=== PATIENT | male | born 1970 | race Caucasian/White ===

== ENCOUNTER 2024-10-11 07:51 | Emergency (ER) | payer SELFPAY ==
[2024-10-11 07:57] VITALS: BP 127/84; PULSE 105; TEMP 36.4; O2SAT 100; BMI 26.8
--- NOTE | 2024-10-11 08:03 | ECG_ITS ---
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
--- NOTE | 2024-10-11 08:12 | ED.ABDPAIN1 ---
HPI - Abdominal Pain General Chief Complaint: Abdominal Pain Stated Complaint: WEAKNESS Time Seen by Provider: 10/11/24 07:55 Source: patient Mode of arrival: walk-in Limitations: no limitations History of Present Illness HPI narrative: The patient is coming to the ER with 1 week and a half history of epigastric discomfort, he mentioned that this started almost when he vomited only 1 time and he felt having some pain in the epigastric area after that, the patient since then has been having feeling of easily being full after eating, no difficulty swallowing but he mentioned that sometime he feels short of breath when laying flat No other concerns Related Data Home Medications ?Medication ?Instructions ?Recorded ?Confirmed No Known Home Medications 10/11/24 10/11/24 Allergies Allergy/AdvReac Type Severity Reaction Status Date / Time No Known Drug Allergies Allergy Verified 10/11/24 07:57 Review of Systems ROS Status of ROS 10 or more systems reviewed and unremarkable except as noted in history and below [facility] Medical History (Updated 10/11/24 @ 09:10 by Laina Greer MD) No active medical problems Social History Feeling down, depressed, or hopeless: not at all Exam Narrative Exam Narrative: Nurses notes and vital signs reviewed and patient is not hypoxic. General: Well-appearing and in no apparent distress. Skin: Warm, dry, no pallor noted. No rash. Head: Normocephalic, atraumatic. Neck: Supple, non-tender. Eye: Pupils are equal, round and EOMI. No scleral icterus. Ears, Nose, Mouth, and Throat: TM are clear, no nasal mucosal hypertrophy. Oral mucosa is moist, no posterior oropharynx erythema, uvula is mid-line Cardiovascular: Regular Rate and Rhythm without murmur, gallop or rub. Respiratory: No accessory muscle use or respiratory distress. Lungs are clear to auscultation, no wheezing, rales or rhonchi Chest Wall: no tenderness Back: No midline thoracic or lumbar vertebral tenderness. No CVA tenderness Musculoskeletal: normal ROM, no calf or popliteal tenderness, no lower extremity edema/swelling GI: Abdomen is soft, epigastric discomfort subjective and no organomegaly detected on exam Constitutional Vital Signs, click to edit/add: Last Vital Signs Temp 97.6 F 10/11/24 07:57 Pulse 78 10/11/24 09:16 Resp 18 10/11/24 09:16 BP 125/68 10/11/24 09:16 Pulse Ox 99 10/11/24 09:16 O2 Del Method Room Air 10/11/24 09:16 Course Vital Signs Vital signs: Vital Signs Temperature 97.6 F 10/11/24 07:57 Pulse Rate 105 H 10/11/24 07:57 Respiratory Rate 20 10/11/24 07:57 Blood Pressure 127/84 10/11/24 07:57 Pulse Oximetry 100 10/11/24 07:57 Oxygen Delivery Method Room Air 10/11/24 07:57 Temperature 97.6 F 10/11/24 07:57 Pulse Rate 78 10/11/24 09:16 Respiratory Rate 18 10/11/24 09:16 Blood Pressure 125/68 10/11/24 09:16 Pulse Oximetry 99 10/11/24 09:16 Oxygen Delivery Method Room Air 10/11/24 09:16 MDM - Abdominal Pain MDM Narrative Medical decision making narrative: The patient CBC and chemistry showed no acute significant pathology X-ray of the chest showed no acute pathology as well The patient EKG showing sinus rhythm with a heart rate of [address] elevation or depression The patient CAT scan of the abdomen pelvis showed some splenomegaly which is mild and kidney stone that not correlating the current presentation and the nonobstructing I did explain to the patient the incidental finding of the kidney stone and the fact that need to stay hydrated but also explained to him that this cardiomegaly could be secondary to viral illness Right now hydration and small until resolution is advised The patient is to follow up with primary care physician in next 2-3 days or to return to the emergency department should any of the signs or symptoms worsen or new symptoms develop. The patient agrees with the following Diagnosis and Treatment plan and the patient will be discharged home. The patient to follow-up with his primary care doctor for further evaluation of splenomegaly in case it is continuous Lab Data Labs: Lab Results 10/11/24 Range/Units 08:15 WBC 4.6 (4.0-11.0) 10^3/uL RBC 5.40 (4.70-6.10) 10^6/uL Hgb 16.7 (14.0-18.0) g/dL Hct 47.3 (42.0-54.0) % MCV 87.6 (80.0-94.0) fL MCH 30.9 (25.9-34.0) pg MCHC 35.3 H (29.9-35.2) g/dL RDW 11.9 (11.0-15.0) % Plt Count 165 (150-450) 10^3/uL MPV 10.7 (9.5-13.5) fL Neut % (Auto) 67.7 (43.0-75.0) % Lymph % (Auto) 21.6 (20.5-60.0) % [place] % (Auto) 9.5 (1.7-12.0) % Eos % (Auto) 0.4 L (0.9-7.0) % Baso % (Auto) 0.6 (0.2-2.0) % Neut # (Auto) 3.1 (1.4-6.5) 10^3/uL Lymph # (Auto) 1.0 L (1.2-3.8) 10^3/uL [place] # (Auto) 0.4 (0.3-0.8) 10^3/uL Eos # (Auto) 0.0 (0.0-0.7) 10^3/uL Baso # (Auto) 0.0 (0.0-0.1) 10^3/uL Abs Immat Gran (auto) 0.01 (0.00-0.03) 10^3/uL Imm/Tot Granulo (auto) 0.2 (0.0-0.5) % PT 11.4 (9.0-11.6) sec INR 1.08 Sodium 140 (136-145) mmol/L Potassium 4.7 (3.5-5.1) mmol/L Chloride 104 (98-107) mmol/L Carbon Dioxide 29.3 (21.0-32.0) mmol/L Anion Gap 11.4 BUN 12.0 (7.0-18.0) mg/dL Creatinine 0.95 (0.70-1.30) mg/dL Est GFR ( Amer) >60 (>=60 mL/min/1.73m^2) Est GFR (Non-Af Amer) >60 (>=60 mL/min/1.73m^2) BUN/Creatinine Ratio 12.6 Glucose 106 (74-106) mg/dL Calcium 9.1 (8.5-10.1) mg/dL Total Bilirubin 1.1 H (0.2-1.0) mg/dL AST 32 (15-37) U/L ALT 34 (16-63) U/L Alkaline Phosphatase 130 H (46-116) U/L Troponin I High Sens 4.8 (4.0-76.1) pg/mL Total Protein 6.6 (6.4-8.2) g/dL Albumin 4.0 (3.4-5.0) g/dL Globulin 2.6 g/dL Albumin/Globulin Ratio 1.5 Lipase 29.0 (16.0-77.0) U/L Discharge Plan Discharge Chief Complaint: Abdominal Pain Clinical Impression: Abdominal pain, Splenomegaly Patient Disposition: Home, Self-Care Time of Disposition Decision: 09:09 Condition: Good Prescriptions / Home Meds: No Action No Known Home Medications Print Language: Luxembourger Instructions: Abdominal Pain (ED) Additional Instructions: Call the office of your primary care doctor to arrange for follow-up within the above-stated timeframe. Your ED visit was focused on your acute issue and does not replace primary care. You should review your labs, imaging, and diagnoses from this ED visit with your primary care physician. There may be non-emergent/ incidental findings that need further evaluation. You should review your vital signs including blood pressure with your PCP. If you were prescribed medications you should discuss possible side-effects and drug interactions with your pharmacist. Call 911 or go to the nearest Emergency Department if you develop any new or worsening symptoms. Referrals: Physician,Non-Staff, MD [Primary Care Provider] - 1 week Discharge Date/Time: 10/11/24 09:18
[2024-10-11 08:22] LABS: Basophils Percent Auto 0.6 % (0.2-2.0); Eosinophils Percent Auto 0.4 % (0.9-7.0); Hematocrit 47.3 % (42.0-54.0); Hemoglobin 16.7 g/dL (14.0-18.0); Immature Granulocytes Abs Auto 0.01 10^3/uL (0.00-0.03); Immature Granulocytes Pct Auto 0.2 % (0.0-0.5); Lymphocytes Percent Auto 21.6 % (20.5-60.0); Mean Corpuscular HGB Conc 35.3 g/dL (29.9-35.2); Mean Corpuscular Hemoglobin 30.9 pg (25.9-34.0); Mean Corpuscular Volume 87.6 fL (80.0-94.0); Mean Platelet Volume 10.7 fL (9.5-13.5); Monocytes Absolute Auto 0.4 10^3/uL (0.3-0.8); Monocytes Percent Auto 9.5 % (1.7-12.0); Neutrophils Absolute Auto 3.1 10^3/uL (1.4-6.5); Neutrophils Percent Auto 67.7 % (43.0-75.0); Platelet Count 165 10^3/uL (150-450); Red Cell Distribution Width 11.9 % (11.0-15.0); White Blood Count 4.6 10^3/uL (4.0-11.0)
[2024-10-11 08:36] LABS: INR 1.08; Prothrombin Time 11.4 sec (9.0-11.6)
[2024-10-11 08:44] LABS: Alanine Aminotransferase 34 U/L (16-63); Albumin Globulin Ratio 1.5; Alkaline Phosphatase 130 U/L (46-116); Anion Gap 11.4; Aspartate Amino Transferase 32 U/L (15-37); BUN Creatinine Ratio 12.6; Bilirubin Total 1.1 mg/dL (0.2-1.0); Calcium 9.1 mg/dL (8.5-10.1); Carbon Dioxide 29.3 mmol/L (21.0-32.0); Chloride 104 mmol/L (98-107); Estimated GFR (African America >60 (>=60 mL/min/1.73m^2); Estimated GFR (Non-African Ame >60 (>=60 mL/min/1.73m^2); Globulin 2.6 g/dL; Glucose 106 mg/dL (74-106); Potassium 4.7 mmol/L (3.5-5.1); Sodium 140 mmol/L (136-145); Total Protein 6.6 g/dL (6.4-8.2)
[2024-10-11 08:47] LABS: Troponin I High Sensitivity 4.8 pg/mL (4.0-76.1)
[2024-10-11 09:16] VITALS: BP 125/68; PULSE 78; O2SAT 99
== END 2024-10-11 09:18 | disposition home or self-care (01) ==
PROVIDERS: Emergency Provider Emergency Medicine
DX: R10.9 Unspecified abdominal pain (principal); R16.1 Splenomegaly, not elsewhere classified; N20.0 Calculus of kidney
CPT/HCPCS: 36415; 71045; 74176; 80053; 83690; 84484; 85025; 85610; 93005; 99285

== ENCOUNTER 2025-01-01 21:07 | Emergency (ER) | payer SELFPAY ==
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
--- OUTSIDE RECORDS SUMMARY | 2025-01-01 09:26 | XMS_ITS | Encounter Summary ---
Author Organization [facility] Address [address] [place] [id number] Care Team Providers Care Band Attacher Name Role Phone Juan JoseRei Giovanni RIVERA Primary Care Provider Lyubov Figueroa PA-C Unavailable [phone] Source Comments In the event this information is protected by the Federal Confidentiality of Alcohol and Drug AbusePatient Records regulations: The Federal rules restrict any use of the information to criminally investigate or prosecute any alcohol or drug abuse patient.[facility] Reason for Visit * Auth/Cert (Routine) Specialty Diagnoses / Procedures Referred By Geo t Referred To Contact Diagnoses Calculus of kidney Calculus of kidney [N20.0] Procedures CYSTO/URETERO W/LITHOTRIPSY &INDWELL STENT INSRT CYSTOURETHROSCOPY W/ URETEROSCOPY AND/OR PYELOSCOPY W/ LITHOTRIPSY INCLUDE INSERTION OF INDWELLING URETERAL STENT [facility] [address] [place] [address] Phone: tel: Referral ID Status Reason Start Date Expiration Date Visits Re quested Visits Authorized [id number] 1 1 Encounter Details Date Type Department Care Team ([facility] st Contact Info) Description 01/01/2025 9:26 AM EDT - 01/01/2025 2:01 PM EDT Hospital Encounter [facility] [address] [place], [place] [id number] [place] [address] [place] [address] Calculus of kidney [N20.0] Discharge Disposition: Home Social History Tobacco Use Types Packs/Day Years [...] is lower risk 7 10/13/2024 Data from: https://www.neighborhoodatlas.medicine.[facility].edu/. Last address used for calculation [address] [...] Sign Reading Time Taken Comments Blood Pressure 107/67 01/01/2025 1:40 PM EDT Pulse 69 01/01/2025 1:20 PM EDT Temperature 36.8 C (98.3 F) 01/01/2025 12:19 PM EDT Respiratory Rate 16 01/01/2025 1:40 PM EDT Oxygen Saturation 100% 01/01/2025 1:40 PM EDT Inhaled Oxygen Concentration - - Weight - - Height - - Body Mass Index - - documented in this encounter Functional Status * [...] Margaret Calabrese MA documented in this encounter Discharge Instructions * Discharge Instr - Other Orders* Alisa Higgins MD - 01/01/2025 12:12 PM EDT Images from the original note were not included. The [place] [phone] or [phone] CC-CARE DISCHARGE INSTRUCTIONS C O N F I D E N T I A L I N F O R M A T I O N This is a summary of your hospital stay. Please read it carefully and share it with your family andhealthcare providers. PATIENT NAME: Emmett Watkins ADMISSION DATE: January 01, 2025 DISCHARGE DATE: January 01, 2025 DIAGNOSIS: Nephrolithiasis OTHER HOSPITAL PROBLEMS: NA SURGERIES: Cystoscopy, LEFT ureteroscopy,basket extraction of stones, LEFT stent placement SURGEON: Nika Merritt MD IMPORTANT TESTS/PROCEDURES: No additional tests/procedures CONCERNING SYMPTOMS OR WARNING SIGNS Please call your doctor's office ([phone]) and ask to speak to your doctor's nurse pondman if you experience: - Signs of infection (fever over 101F, swelling) - Symptoms of dehydration (weakness, fatigue, dizziness when standing or walking, high heart rate, low urine output or very dark urine) - Severe abdominal pain - Persistent nausea/vomiting with abdominal bloating - Ongoing bleeding from your urethra Please present to the local Emergency Department if you experience: - New onset chest pain - Shortness of breath that persists/worsens - Any symptom that you feel warrants immediate attention FURTHER QUESTIONS If you have any further questions, please feel free to call [facility] ([phone]) and ask to speak with your doctor's nurse pondman PENDING TEST RESULTS: Stone analysis FOLLOW-UP INFORMATION Please follow-up as recommended by your provider: - [facility]: [phone] - [facility] [phone] - If you would like an appointment at the [facility], please call the [facility] appointment line ([phone]) to request an appointment Frequently Asked Questions Pathology and Follow-Up: Q: When will I get my results? A: This is one the most important questions to answer after any surgery. This will take about 5-7 days and will be released on [employer] Q: When am I seeing my surgeon again? A: We do our very best to schedule post-operative visits before discharge. The best way to confirm your appointment details is with the urology office during regular business hours. These appointments can also be found on [employer]. Important Phone Numbers to make appointments: Urology Office and Appointment Line: [phone] [facility] (Not Urology) Appointment Line: [phone] [facility] Radiology: [phone] [facility] Interventional Radiology: [phone] Outpatient Lab: [phone] or [phone] Q: What is [employer]? A: [employer] is an online tool. It allows you to manage your healthcare. You can communicate with caregivers too. Visit [email or web address] to register. You need an e-mail address to make an account. Urology Discharge Instructions Following Ureteroscopy DIET: You can resume your regular diet. We encourage you to eat well-balanced and nutritious Meals. ACTIVITY: Please restrain from strenuous activity for 2 weeks. Please walk daily as much as tolerated, makingexercise a part of your daily life. Do not drive while using narcotics for pain control. GENERAL EXPECTATIONS: There is no skin incision but your urinary tract is very sensitive. After your operation, it is common to have some pain on your side, as well as urinary symptoms (urgency, mild burning) after stone surgery. This is normal and resolves within a few days. It is also normal to see blood in your urine, including small clots for up to 2 weeks fromthe surgery. The urine may clear up entirely, and then turn bloody again a few days later depending on your activity level; do not be alarmed. Stay well hydrated, as this will help the urine clear. STENTS: Your stent is internal and will be removed in a simple office procedure. Normal symptoms associated with a ureteral stent Blood in urine: it is normal to have a light pink to cranberry juice colored urine. Passage of small clots (less than the size of a pea) is also normal. Pain: specifically pain in your flank, the side of your back, or in your lower abdomen. We recommend taking the medications you were prescribed to reduce these symptoms Urinary issues: feeling like you need to go to the bathroom more frequently and more urgently. Burning with urination is also normal when you have a stent. How to live with a ureteral stent: Stay well hydrated: We recommend drinking 2.5 liters daily (about 5-6 pints) to keep your urine flushed, to minimize your symptoms, and minimize the blood in your urine. Stagger your pain medications: Take Medication X at time 0, then Medication Y several hours after that, then Medication X several hours later. Take the medications at the time intervals as specified on your prescription or on the bottle. Use of heating packs on your back or your lower abdomen can also help ease ureteral stent discomfort What is a ureteral stent? A ureteral stent (also called a double J stent) is a soft, hollow tube about 10- to 12 inches long made of a flexible plastic material. It is a very thin tube about the size of a coffee swizzle stick. It isplaced in the ureter, which is the muscular tube that drains urine from the kidney to the bladder. Each end of the stent is shaped like a pigtail. One end of the tube sits in the kidney, and one endsits in the bladder as an anchor. What does a ureteral stent do? A ureteral stent holds the ureter open. Without the stent, urine may not be able to drain from the kidney to the bladder. The stent is kept in place until swelling from the procedure goes down or anyblockage has been cleared. When is a ureteral stent used? A stent is used in a number of situations. Your surgeon will decide if a stent is necessary at the end of your procedure. Does a ureteral stent cause any symptoms? The degree of discomfort varies from patient to patient. Some patients do not experience any symptoms while the stent is in place. However, when there are symptoms, one of the more commonly seen is bladder irritation. Bladder irritation can cause: ? an increase in the number of times needed to pass urine (frequency) ? a feeling of the need to pass urine ???right now??? (urgency) ? a feeling that the bladder has not completely emptied ? painful urination, including a burning sensation, bladder and kidney pain, and/ or groin pain Some patients experience leakage of urine, especially women. Stents can also make you feel tired. Almost every patient will see blood in their urine while the stent is in place. The bleeding can ???come and go.?? Please note that you may actually see more blood in your urine as you start to feelbetter. This is because as you feel better, you begin to increase your activity. Activity causes the stent to irritate the lining of the bladder and ureter as it moves up and down with your movements. Your urine may range in color from pink to leiva red. Follow these steps to decrease or relieve any symptoms you may have while the ureteral stent is in place: ? Drink liquids. The most important step is to drink 1?? to 2 liters of fluids a day. Fluids keep the ureter clear and draining well, decrease the amount of blood in the urine, and reduce the risk ofinfection. Fluids also help keep kidney stones and bladder stones from redeveloping. ? Take medications as prescribed. The most common medication used to treat ureteral stent???spasms?? is oxybutynin or ditropan. Sometimes Flomax?? is used as well or instead. These medications calm down the ureter and bladder. (They act like a ???sedative?? for the urinary tract.) ? Take pain medication only as needed. ? Use heat to increase your comfort level. Taking a hot shower or bath or using a heatingpad can increase your comfort level. (Be CAREFUL. Don???t keep the temperature so high that you might burn yourself) Pain while passing urine, should improve with TIME and by taking your medications as directeduntil your stents are finally removed. How is a stent removed? Typically, a stent is removed using a cystoscope. Cystoscopy is an outpatient procedure that only takes a few minutes to perform and causes very little discomfort. It is performed in a procedure roomon floor Q9. A cystoscope is a small flexible scope that is inserted into the urethra. Before the cystoscope is inserted, a local anesthetic gel (lidocaine) is used to numb the urethra. Because this is an in-office procedure, you do NOT need a substitute bus driver to take you home. Also, there are no dietary restrictions before your procedure. You may eat and drink as you normally do. Please take all of your medications as directed. There is no need to stop taking blood thinners such as coumadin or aspirin. Your urologist may decide to attach a ???pull-out?? string to the stent. This string hangs out of the urethra (the opening where urine exits the body). The stent is easily removed by pulling on the string that is attached to the stent. On rare occasions, the string breaks and the stent can???t be easily removed. In this case, the stent is removed by cystoscopy. Note: If a string is left, it is uncommon for a stent to fall out on its own. If you notice that the stent has passed with your urine, please call the office. It may or may not need to be replaced. One third of patients will have some cramps in the kidney after the stent is removed that usually resolves after 48 hours. Women are more likely to experience this symptom but it can occur in both men and women. When should I call my doctor???s office for possible immediate help? Call the doctor???s office: ? If your urine is the color of tomato juice or if you are seeing blood clots. ? If you are having constant and unbearable pain associated with the stent. ? If you have symptoms of a urinary tract infection (temperature > than 101 F) pain while passing urine, or generally not feeling well). ? It the stent gets dislodged or falls out. ? If you notice a significant change in the amount of blood in your urine. ? If you need to be reassured that the symptoms you are having are normal parts of the healing process. YOUR MEDICATIONS: Tylenol: Use Tylenol in conjunction with your NSAID for pain/discomfort., Toradol(Ketorolac): Toradol (Ketorolac) is a non-steroidal anti-inflammatory (NSAID) medication. To be used for first line of defense against pain/discomfort. Do not use ibuprofen or other NSAIDS if you areusing this medication. , Flomax: You have been prescribed Flomax to treat pain that may be cause byyour stent. If you are not taking Flomax previously, then stop taking 2 days after stent removal., Pyridium: You have been prescribed Pyridium, a urinary analgesic, to help with bladder discomfort. This medication will turn your urine orange temporarily; it will resolve once you stop taking your med ications., and Anticholinergic: You have been prescribed Levasin to treat bladder spasms (strong urge to void). This medicine will cause constipation and sensation of dry mouth as a side effect. Do not take this if you have any difficulty voiding. Antibiotics: None FOLLOW-UP: You will follow up with in ~5-7 days for stent removal WARNING SIGNS: - If you are experiencing these symptoms, go to your local emergency room: - Fever greater than 101 degrees Fahrenheit, chills, nausea or vomiting - Severe or persistent bleeding in the urine or from your incision without relief from rest and hydration, especially if your urine is ketchup colored or if your urine is so red you cannot see through it. If this happens, seek medical care at your nearest emergency room immediately. - Increasing pain unrelieved by medications - Inability to urinate over 6 hours Office number for general questions (NOT for emergencies): [phone] FOLLOW THESE INSTRUCTIONS REGARDING ANESTHESIA: 1. Do not drink alcoholic beverages including beer and wine for 24 hours. Alcohol enhances the effects of anesthesia and sedation. 2. Do not drive a motor vehicle, operate machinery or power tools for 24 hours. Children should notride bikes or skate boards, play on gym sets, etc for 24 hours. 3. Do not make any important decisions or sign important papers for 24 hours. 4. A responsible adult must be with your for the first 24 hour period after discharge. You may experience dizziness and sleepiness following surgery. Rest at home with moderate activity as tolerated. 5. Certain anesthetics and pain medications may produce nausea and vomiting. 6. A raspy voice for 24 - 48 hours is normal and should go away without treatment. 7. A sore area around the intravenous site on the arm will go away in a few days. 8. Low grade fever is normal but if fever is higher than 101 degrees F, call your physician. Alisa Higgins MD documented in this encounter Medications at Time of Discharge phenazopyridine (PYRIDIUM) 100 mg tablet Take 2 tablets by mouth three times a day as needed (Urethral pain). 12 tablet 01/01/2025 tamsulosin (FLOMAX) 0.4 mg Take 1 capsule by mouth once daily. Stop two days after your stent is removed. 30 capsule 01/01/2025 01/31/2025 hyoscyamine (LEVSIN) 0.125 mg tablet Take 1 tablet by mouth every 4 hours as needed (For bladder spasms). 30 tablet 01/01/2025 acetaminophen (TYLENOL 8 HOUR) 650 mg CR tablet Take 1 tablet by mouth every 8 hours as needed for pain. 20 tablet 01/01/2025 keTORolac (TORADOL) 10 mg tablet Take 1 tablet by mouth every 6 hours as needed for pain for up to 5 days. 6 tablet 01/01/2025 01/06/2025 savanna root, bulk, powd documented as of this encounter H&P Notes * Nika Merritt MD - 01/01/2025 10:53 AM EDT Preoperative H&P Chief complaint: Patient is here today for management of kidney stones History, update from last visit: Previous notes, reviewed, no significant new changes, patient is doing well, denies fever, abdominal pain, nausea or vomiting, no new voiding symptoms or constipation. Of noted continues to have 5/10 flak pain. Examination: Patient is awake and alert , oriented to time, person, place. Chest: unlabored breathing, equal on both sides. Heart: regular rate and rhythm, normal peripheral pulsations. Abdomen: Soft, non tender, non distended, no palpable organs. All lab results, imaging reviewed and there was no change. Assessment and plan of management: Patient is here today for management of kidney stones Plan for ureteroscopy, laser lithotripsy, stent placement All patient's questions were discussed in details, outline of procedure and recovery discussed. Patient signed the consent in person Surgical site : left side Nika Merritt MD January 01, 2025 10:53 AM documented in this encounter OR Notes * Operative Report - Alisa Higgins MD - 01/01/2025 11:11 AM EDT OPERATIVE/PROCEDURE REPORT LOG ID: [id number] Surgery/Procedure Date: 01/01/2025 Incision/Procedure Start Time: 11:26 AM Incision Close/Procedure End Time: 12:07 PM Surgeon(s)/Proceduralist(s) and Manifold Builder(s): Surgeons and Role: * Nika Merritt MD - Primary * Alisa Higgins MD - Resident - Assisting * Arlen Bazzi DO - Fellow Procedure(s): Cystoscopy LEFT Ureteroscopy with basket extraction of stones Insertion of LEFT indwelling 6 Fr x 30cm JJ ureteral stent Physician fluoroscopy time <1hr Anatomic Site: Kidney, Laterality: Left Ureter, Laterality: Left Bladder Laterality: N/A Approach: Endoscopic Anesthesia: General Operative Indications: This is a 54 year old male with a left 4mm upper pole stone who presented for operative management. After discussing the risks, benefits, and alternatives of the procedure the patient has elected to pursue management of their condition via the aforementioned surgery. Operative findings: - Tight urethral meatus - Bilateral orthotopic ureteral orifices without growths or hematuria. - Normal appearing bladder mucosa without trabeculations, erythema, or masses Procedure Details: The patient was brought to the operating room where a huddle involving the patient, surgeons, anesthesia, and operative staff correctly identified the patient, procedure to be performed, laterality, allergies, antibiotics, and equipment to be used. General endotracheal anesthesia was administrated and IV Ancef was administered for perioperative antibiotics. SCDs were placed for DVT prophylaxis. The patient was then placed in the dorsal lithotomy position and prepped and draped in the usual sterile fashion. At this point, a time-out was performed, again correctly identifying the patient, position, procedure, antibiotics, and necessary equipment. Patient w a tight urethral meatus, an visual obturator was used to gently dilate the opening. A 21-Croatian cystoscope with a 30-degree lens was then advanced into the bladder and used to systematically inspect the bladder and urethra. Findings are listed above under operative findings. The LEFT ureteral orifice was identified and canulated with a 0.035 solo flex glidewire and a 5 Croatian open-ended ureteral catheter. A 5 tur[place] islander open ended catheter was used to perform a retrograde pyelogram which showed a normal caliber ureter and no hydronephrosis. There is an area of questionablefilling defect at the UPJ. A semi-rigid ureteroscope was inserted into LEFT ureter alongside the wire and no stone was encountered to the mid-ureter, but ureter itself is noted to be narrow and tight. Then a second 0.038 stiffshaft glide wire was advanced through the semi-rigid scope to the kidney under fluoroscopic guidance. The semi-rigid scope was then removed. The 0.035 solo flex wire was clamped to the drape as a safety wire and the other kept as a working wire. A 9.5Fr x 35cm ureteral access sheath was attempted to advance over the wire but was met w resistance. Safety wire was then removed create working space. After dilation with the inner sheath first, the ureteral access sheath was then successfully advanced over the working wire using fluoroscopy. The inner sheath and the working wire was then removed. Then 270 flexible ureteroscope was advanced through the sheath and into the ureter. We then carefully examined the proximal ureter, all calyces and the renal pelvis.We identified few punctate Steve's plaques in a upper pole calyx. The basket was used to remove all visible plaques.We again examined all calyces and did not see any further stones. A 6 tur[place] and ca[place] islander x 30 cm JJ stent without strings was placed with a good curl noted in the kidney on fluoroscopy and a good curl was seen in the bladder with the cystoscope. The bladder was drained and thescope was removed. There were no intraoperative complications, and the patient tolerated the procedure well. The patient was extubated and transported to the recovery room in stable condition. Pre-Op/Pre-Procedure Diagnosis: Pre-Op Diagnosis Codes: * Calculus of kidney [N20.0] Post-Op/Post-Procedure Diagnosis: Post-Op Diagnosis Codes: * Calculus of kidney [N20.0] Estimated Blood Loss: <2 mls Specimens: ID Type Source Tests Collected by Time Destination 1 : left kidney stone Calculus Kidney, Left CALCULI ANALYSIS Nika Merritt MD 01/01/2025 11:59 AM Drains: None Implantable Devices: left Indwelling 6 Fr. X 30cm JJ ureteral stent Complications: None Qualifier: None The primary surgeon performed the procedure with the assistance of the resident. This operative report was dictated by Alisa Higgins MD on behalf of Nika Merritt MD SIGNATURE: Alisa Higgins MD PATIENT NAME: Emmett Watkins DATE: January 01, 2025 TIME: 12:27 PM PAGER/CONTACT #: [phone] Cosigned by Nika Merritt MD at 01/01/2025 7:54 PM EDT Associated attestation - Nika Merritt MD - 01/01/2025 7:54 PM EDT Reviewed and concur with Dr. Higgins's documentation of the operative findings and description of the procedure as dictated in the operative report. I was present throughout the procedure and contributed to all critical parts of the procedure including opening and closing. Nika Merritt MD documented in this encounter Plan of Treatment Pending Results Name Type Priority Associated Diagnoses Date /Time CALCULI ANALYSIS Lab Routine Calculus of kidney 01/01/2025 11:59 AM EDT Scheduled Orders Name Type Priority Associated Diagnoses Orde r Schedule CALCULI ANALYSIS Lab Routine Calculus of kidney Release Upon Ordering for 1 Occurrences starting 01/01/2025 Scheduled Procedures Name Priority Associated Diagnoses Date/Ti me CYSTOURETHROSCOPY W/ URETEROSCOPY AND/OR PYELOSCOPY W/ LITHOTRIPSY INCLUDE INSERTION OF INDWELLING URETERAL STENT Calculus of kidney 01/01/2025 10:56 AM EDT documented as of this encounter Visit Diagnoses Diagnosis Calculus of kidney documented in this encounter Administered Medications Inactive Administered Medications - up to 3 most recent administrations Medication Order MAR Action Action Date Dose Rate Site acetaminophen 1,000 mg tab(s) (TYLENOL) 1,000 mg, ORAL, PRE-OP ONCE, 1 dose, On Tue01/01/25 at 1030, Preprocedure Given 01/01/2025 10:33 AM EDT 1,000 mg fentaNYL 50 mcg/mL 50 mcg injection (SUBLIMAZE) 50 mcg, INTRAVENOUS, X (PACU ONLY) PRN, 4 doses, Starting on Tue01/01/25 at 1221, Until 01/01/25 at 1601, Moderate Pain (4-6) - Parenteral, FIRST LINE THERAPY, Every 10 minutes., Recovery or Phase I (only) Given 01/01/2025 12:59 PM EDT 50 mcg HYDROmorphone 0.5 mg injection (DILAUDID) 0.5 mg, INTRAVENOUS, X (PACU ONLY) PRN, 2 doses, Starting on e 01/01/25 at 1221, Until Tue01/01/25 at 1601, Severe Pain (>/=7) - Parenteral, SECOND LINE THERAPY, Every 5 minutes. Caution: IV hydromorphone is approximately 8 times MORE POTENT than IV morphine. For example, hydromorphone 1mg IV = morphine 8mg IV, Recovery or Phase I (only) Given 01/01/2025 1:23 PM EDT 0.5 mg NaCl 0.9% iv infusion 5-30 mL/hr, INTRAVENOUS, CONTINUOUS, Starting on Tue01/01/25 at 1030, Until Tue01/01/25 at 1218, Preprocedure Continued by Anesthesia 01/01/2025 11:11 AM EDT 30 mL/hr New Bag/Syringe/Bottle 01/01/2025 10:34 AM EDT 30 mL/hr 30 mL/hr ondansetron (PF) 4 mg injection (ZOFRAN) 4 mg, INTRAVENOUS, X (PACU ONLY) PRN, 1 dose, Starting on Tue01/01/25 at 1221, Until Tue01/01/25 at 1601, Nausea/Vomiting - First Line - Parenteral, Give IV push over 2 minutes. Use when patient unable to take medications by mouth., Recovery or Phase I (only) ondansetron 4 mg tab(s) (ZOFRAN) 4 mg, ORAL, X (PACU ONLY) PRN, 1 dose, Starting on e 01/01/25 at 1221, Until e 01/01/25 at 1601, Nausea/Vomiting - First Line - Enteral, Use when patient able to take medications by mouth., Recovery or Phase I (only) oxyCODONE IR 5 mg tab(s) (ROXICODONE) 5 mg, ORAL, X (PACU ONLY) PRN, 1 dose, Starting on Tue01/01/25 at 1221, Until Tue01/01/25 at 1323, breakthrough pain, For prn administration before discharge once patient tolerating PO and IV to be discontinued, For prn administration before discharge once patient tolerating PO and IV to be discontinued , Recovery or Phase I (only) Given 01/01/2025 1:23 PM EDT 5 mg promethazine 12.5 mg tab(s) (PHENERGAN) 12.5 mg, ORAL, PRE-OP ONCE, 1 dose, On Tue01/01/25 at 1030, Preprocedure Given 01/01/2025 10:33 AM EDT 12.5 mg documented in this encounter Active and Recently Administered Medications Times are shown in EDT. Scheduled Medication Order 12/30/2024 12/31/2024 01/01/2025 acetaminophen 1,000 mg tab(s) (TYLENOL) (COMPLETED) 1,000 mg, ORAL, PRE-OP ONCE, 1 dose, On Tue01/01/25 at 1030, Preprocedure 1033 (Given - Provid er: Ivon Ramos RN) ceFAZolin iv piggyback 2 g in D5W (iso-osmotic) 100 mL (ANCEF) (COMPLETED) 2 g, INTRAVENOUS, at 200 mL/hr, Administer over 30 Minutes, PRE-OP ONCE, 1 dose, On Tue01/01/25 at 1030, Urology Cases PRE-OP ANTIBIOTIC ADMINISTER ONLY IN SURGICAL AREA DO NOT ADMINSTER ON THE FLOOR Refrigerate, Antimicrobial indication: Prophylaxis, Preprocedure 1034 (Sent with Fouzia ent - Provider: Ivon Ramos RN)1112 (Given - Provider: Uma Aparicio APRN.EMERGENCY RESPONSE TECHNICIAN) promethazine 12.5 mg tab(s) (PHENERGAN) (COMPLETED) 12.5 mg, ORAL, PRE-OP ONCE, 1 dose, On Tue01/01/25 at 1030, Preprocedure 1033 (Given - Provid er: Ivon Ramos RN) Continuous Medication Order 12/30/2024 12/31/2024 01/01/2025 NaCl 0.9% iv infusion (CANCELED) 5-30 mL/hr, INTRAVENOUS, CONTINUOUS, Starting on Tue01/01/25 at 1030, Until 01/01/25 at 1218, Preprocedure 1034 (New Bag/Syring e/Bottle - Provider: Ivon Ramos RN)1111 (Continued by Anesthesia - Provider: Uma Aparicio APRN.CRNA)1158 (Anesthesia Volume Adjustment - Provider: Tiffanie Bishop MD)1218 (Due: Order Ending - Provider: Reg In Adtr - Comment: [Order ends at this time. Document the following action when infusion is complete: Infusion Complete]) PRN Medication Order 12/30/2024 12/31/2024 01/01/2025 fentaNYL 50 mcg/mL 50 mcg injection (SUBLIMAZE) 50 mcg, INTRAVENOUS, X (PACU ONLY) PRN, 4 doses, Starting on 01/01/25 at 1221, Until 01/01/25 at 1601, Moderate Pain (4-6) - Parenteral, FIRST LINE THERAPY, Every 10 minutes., Recovery or Phase I (only) 1259 (Given - Provid er: Radha Sorensen RN) HYDROmorphone 0.5 mg injection (DILAUDID) 0.5 mg, INTRAVENOUS, X (PACU ONLY) PRN, 2 doses, Starting on 01/01/25 at 1221, Until 01/01/25 at 1601, Severe Pain (>/=7) - Parenteral, SECOND LINE THERAPY, Every 5 minutes. Caution: IV hydromorphone is approximately 8 times MORE POTENT than IV morphine. For example, hydromorphone 1mg IV = morphine 8mg IV, Recovery or Phase I (only) 1323 (Given - Provid er: Radha Sorensen RN) ondansetron (PF) 4 mg injection (ZOFRAN)(Linked Group 1) 4 mg, INTRAVENOUS, X (PACU ONLY) PRN, 1 dose, Starting on 01/01/25 at 1221, Until 01/01/25 at 1601, Nausea/Vomiting - First Line - Parenteral, Give IV push over 2 minutes. Use when patient unable to take medications by mouth., Recovery or Phase I (only) ondansetron 4 mg tab(s) (ZOFRAN)(Linked Group 1) 4 mg, ORAL, X (PACU ONLY) PRN, 1 dose, Starting on 01/01/25 at 1221, Until 01/01/25 at 1601, Nausea/Vomiting - First Line - Enteral, Use when patient able to take medications by mouth., Recovery or Phase I (only) oxyCODONE IR 5 mg tab(s) (ROXICODONE) (COMPLETED) 5 mg, ORAL, X (PACU ONLY) PRN, 1 dose, Starting on 01/01/25 at 1221, Until 01/01/25 at 1323, breakthrough pain, For prn administration before discharge once patient tolerating PO and IV to be discontinued, For prn administration before discharge once patient tolerating PO and IV to be discontinued , Recovery or Phase I (only) 1323 (Given - Provid er: Radha Sorensen RN) Linked Groups Order Group 1: ondansetron 4 mg tab(s) (ZOFRAN)Jump to med 4 mg, ORAL, X (PACU ONLY) PRN, 1 dose, Starting on 01/01/25 at 1221, Until 01/01/25 at 1601, Nausea/Vomiting - First Line - Enteral, Use when patient able to take medications by mouth., Recovery or Phase I (only) Or ondansetron (PF) 4 mg injection (ZOFRAN)Jump to med 4 mg, INTRAVENOUS, X (PACU ONLY) PRN, 1 dose, Starting on 01/01/25 at 1221, Until 01/01/25 at 1601, Nausea/Vomiting - First Line - Parenteral, Give IV push over 2 minutes. Use when patient unable to take medications by mouth., Recovery or Phase I (only) documented in this encounter Care Teams Band Attacher Relationship Specialty Start Date End Date Rei Ingram DO [address] [place] [address] PCP - General Internal Medicine 08/14/18 Lyubov Figureoa PA-C [address] [place] [address] Data Communications Engineer Internal Medicine 07/22/24 documented as of this encounter
--- OUTSIDE RECORDS SUMMARY | 2025-01-01 11:11 | XMS_ITS | Encounter Summary ---
Author Organization [facility] Address [address] [place] [id number] Care Team Providers Care Aerospace Products Sales Engineer Name Role Phone IngramRei Primary Care Provider Lyubov Figueroa PA-C Unavailable [phone] Source Comments In the event this information is protected by the Federal Confidentiality of Alcohol and Drug AbusePatient Records regulations: The Federal rules restrict any use of the information to criminally investigate or prosecute any alcohol or drug abuse patient.[facility] Reason for Visit * Auth/Cert (Routine) Specialty Diagnoses / Procedures Referred By Geo t Referred To Contact Diagnoses Calculus of kidney Calculus of kidney [N20.0] Procedures CYSTO/URETERO W/LITHOTRIPSY &INDWELL STENT INSRT CYSTOURETHROSCOPY W/ URETEROSCOPY AND/OR PYELOSCOPY W/ LITHOTRIPSY INCLUDE INSERTION OF INDWELLING URETERAL STENT [facility] [address] [place] [address] Phone: tel: Referral ID Status Reason Start Date Expiration Date Visits Re quested Visits Authorized [id number] 1 1 Encounter Details Date Type Department Care Team ([facility] st Contact Info) Description 01/01/2025 11:11 AM EDT Anesthesia Event [facility] [address] [place], [place] [id number] Tiffanie Bishop MD [address] [facility] [address] Anesthesia Record Procedure Summary Procedure Name Responsible Anesthesiologist Anesthesia Start Time Anesthesia Stop Time CYSTOURETHROSCOPY W/ URETEROSCOPY AND/OR PYELOSCOPY W/ LITHOTRIPSY INCLUDE INSERTION OF INDWELLING URETERAL STENT (Left: Abdomen) Tiffanie Bihsop MD 01/01/25 1111 01/01/25 1223 Events Date Time Event Comment 01/01/2025 1058 1111 An Start I have re-evalu ated the patient immediately prior to induction. 1111 An Start Data 1113 An Induction I have re-evalu ated the patient immediately prior to induction. 1116 An LMA 1116 Anesthesia Ready 1126 Incision/Procedure Start 1204 Emerge 1207 Procedure End 1214 LMA Removed 1215 an stop data 1223 Handoff to RN I completed my handoff to the receiving nurse during which we: 1. Identified the patient 2. Identified the responsible provider 3. Reviewed the pertinent medical history 4. Discussed the surgical course 5. Reviewed intra-op anesthesia management and issues during anesthesia 6. Set expectations for post-procedure period 7. Allowed opportunity for questions and acknowledgement of understanding. 1223 An Stop Meds Name Total dexamethasone injection 4 mg ketorolac injection 30 mg lidocaine (PF) 2% 100 mg midazolam (PF) injection 2 mg ondansetron injection 4 mg propofol injection 270 mg ceFAZolin iv piggyback 2 g in D5W (iso-o smotic) 100 mL (ANCEF) 2 g dexmedeTOMIDine iv infusion 40 mcg NaCl 0.9% iv infusion 1,000 mL * Agents Name ETO2 ETN2O Inspired N2O Set O2% Set Fresh Gas Flow Inspired Sevoflurane O2 Flow Rate N2O Sevoflurane * Blood No blood administrations on file. Lines, Drains, and Airways Type Details Placement Removal PIV 01/01/25; 1035; Righ t; Forearm; 20 Gauge; 01/01/25; 1349 01/01/25 1035 by Ivon Ramos, MOISÉS 01/01/25 1349 by Radha Sorensen, RN Airway Laryngeal Mask Airwa y (LMA); 01/01/25; 1116 (created via procedure documentation); No; 01/01/25; 1214 01/01/25 1116 by McFeaUma mckeon APRN.CRNA 01/01/25 1214 by Uma Aparicio APRN.SHRIMP PEELING MACHINE OPERATOR documented in this encounter Social History Tobacco Use Types Packs/Day Years [...] is lower risk 7 10/13/2024 Data from: https://www.neighborhoodatlas.medicine.[facility].edu/. Last address used for calculation [address] [...] Sign Reading Time Taken Comments Blood Pressure 97/63 01/01/2025 12:10 PM EDT Pulse 76 01/01/2025 12:12 PM EDT Temperature - - Respiratory Rate 17 01/01/2025 12:12 PM EDT Oxygen Saturation 97% 01/01/2025 12:13 PM EDT Inhaled Oxygen Concentration - - [...] Margaret Calabrese MA documented in this encounter Procedure Notes * Tiffanie Bishop MD - 01/01/2025 1:40 PM EDT POST ANESTHESIA EVALUATION NOTE : 1970 Procedure Summary Date: 01/01/25 Room / Location: OR / OR Anesthesia Start: 1111 Anesthesia Stop: 1223 Procedure: CYSTOURETHROSCOPY W/ URETEROSCOPY AND/OR PYELOSCOPY W/ LITHOTRIPSY INCLUDE INSERTION OF INDWELLING URETERAL STENT (Left: Abdomen) Diagnosis: Calculus of kidney (Calculus of kidney [N20.0]) Surgeons: Nika Merritt MD Responsible Provider: Tiffanie Bishop MD Anesthesia Type: general ASA Status: 2 Anesthesia Type: general Airway Type: LMA Last Vitals Vitals Value Taken Time BP 105/62 01/01/25 1330 Temp 36.8 ??C (98.3 ??F) 01/01/25 1219 HR SpO2 49 01/01/25 1340 Resp 16 01/01/25 1330 SpO2 100 % 01/01/25 1340 Vitals shown include unfiled device data. Post Anesthesia Patient Status Patient Evaluation: PACU. PACU/ICU Patient Condition: stable. Anticipated Disposition: phase 2 then home. Neurological Status: aware and responsive. Pulmonary Status: breathing comfortably on room air Airway Control: returned to baseline unsupported. Cardiovascular Status: stable. Pain Management: clinically adequate - multimodal analgesia pain management approach Postoperative Hydration: acceptable. Intraoperative Events: no significant anesthesia events Recommendation: continue current plan of care. Anesthesia Observations No Documentation SIGNATURE: Tiffanie Bishop MD PATIENT NAME: Emmett Watkins DATE: January 01, 2025 TIME: 1:40 PM CSN: [id number] * Uma Aparicio APRN.SHRIMP PEELING MACHINE OPERATOR - 01/01/2025 11:23 AM EDTAssociated Order(s): Airway ANESTHESIOLOGY PROCEDURE NOTE Airway General Information Procedure Start Time/Medication Administration: 01/01/2025 11:16 AM Procedure End Time: 01/01/2025 11:16 AM Patient location during procedure: OR Staffing Anesthesiologist: Tiffanie Bishop MD SHRIMP PEELING MACHINE OPERATOR: Uma Aparicio APRN.SHRIMP PEELING MACHINE OPERATOR Performed by: ARMANDO Indications and Patient Condition Indications for airway management: anesthesia Preoxygenated: yes anesthesia circuit Patient position: sniffing Method: asleep Difficult Mask: No Final Airway Details Final airway type: supraglottic airway Number of attempts at approach: 1 Final Supraglottic Airway: IGEL Size 5 Seal Adequate: yes Airway not difficult SIGNATURE: Uma Aparicio APRN.SHRIMP PEELING MACHINE OPERATOR PATIENT NAME: Emmett Watkins DATE: January 01, 2025 TIME: 11:23 AM CSN: [id number] * Tiffanie Bishop MD - 01/01/2025 10:57 AM EDT ANESTHESIOLOGY DAY OF SURGERY NOTE : 1970 Procedure Information Date/Time: 01/01/25 1115 Procedure: CYSTOURETHROSCOPY W/ URETEROSCOPY AND/OR PYELOSCOPY W/ LITHOTRIPSY INCLUDE INSERTION OF INDWELLING URETERAL STENT (Left: Abdomen) Location: AV OR01 / AV OR Surgeons: Nika Merritt MD Estimated body mass index is 25.68 kg/m?? as calculated from the following: Height as of 12/28/24: 193 cm (6' 4 ). Weight as of 12/28/24: 95.7 kg (210 lb 15.7 oz). Most recent hematocrit and potassium results: Hematocrit 50.1 10/12/2024 Potassium 4.8 10/12/2024 Relevant Problems ANESTHESIA (+) CHAY (obstructive sleep apnea) PULMONARY (+) CHAY (obstructive sleep apnea) I - PHYSICAL EVALUATION AIRWAY Patient intubated: No. Tracheostomy tube not present Mallampati: II. TM distance: >3 FB. Neck ROM: full ROM without neurological symptoms. Mouth opening: adequate. Short neck: no. Thick neck: no DENTAL Dental findings: teeth intact. Additional exam findings: no II - ANESTHESIA PLAN ASA Score: 2 Anesthetic Plan: general Airway type: LMA NPO Status: adequate Beta Hui Monitoring Plan Monitoring plan: Standard ASA. Post Procedure Analgesic Plan Postoperative analgesic plan: parenteral or oral opioids and multimodal analgesia. Informed Consent Anesthetic risks, benefits, alternatives, personnel and consent discussed: yes. Patient / Responsible Republican agrees to proceed: yes Patient / Surrogate agrees to blood products: yes DNR status not reviewed with patient and/or family prior to surgery. Significant changes in the patient condition since the History and Physical, not otherwise documented in primary service progress note: no. Potential Anesthesia issues that may suggest increased risk of complications or contraindication toplanned procedure: none. Vitals Value Taken Time BP 137/81 01/01/25 1021 Pulse 77 01/01/25 1021 Resp 17 01/01/25 1021 Temp 36.8 ??C (98.3 ??F) 01/01/25 1021 SpO2 98 % 01/01/25 1021 Facility-Administered Medications as of 01/01/2025 Medication Dose Route Frequency lidocaine (PF) 10 mg/mL (1 %) 1-2 mg injection (XYLOCAINE) 0.1-0.2 mL INTRADERMAL PRN NaCl 0.9% iv infusion 5-30 mL/hr INTRAVENOUS CONTINUOUS NaCl 0.9% iv flush bag 20 mL INTRAVENOUS PRN ceFAZolin iv piggyback 2 g in D5W (iso-osmotic) 100 mL (ANCEF) 2 g INTRAVENOUS Pre-Op Once [COMPLETED] acetaminophen 1,000 mg tab(s) (TYLENOL) 1,000 mg ORAL Pre-Op Once [COMPLETED] promethazine 12.5 mg tab(s) (PHENERGAN) 12.5 mg ORAL Pre-Op Once No current outpatient medications on file as of 01/01/2025. I have interviewed and examined the patient. I have reviewed the medical record and/or the pre-anesthesia evaluation, pertinent labs, and test results. This contains updated information obtained within 48 hours of Surgery/Procedure. SIGNATURE: Tiffanie Bishop MD PATIENT NAME: Emmett Watkins DATE: January 01, 2025 TIME: 10:57 AM CSN: [id number] documented in this encounter Plan of Treatment Scheduled Procedures Name Priority Associated Diagnoses Date/Ti me CYSTOURETHROSCOPY W/ URETEROSCOPY AND/OR PYELOSCOPY W/ LITHOTRIPSY INCLUDE INSERTION OF INDWELLING URETERAL STENT Calculus of kidney 01/01/2025 10:56 AM EDT documented as of this encounter Procedures Procedure Name Priority Date/Time Associated Diagnosis Comments INTUBATION Routine 01/01/2025 11:16 AM EDT documented in this encounter Results * Airway (01/01/2025 11:16 AM EDT) Narrative Uma Aparicio APRN.SHRIMP PEELING MACHINE OPERATOR - 01/01/2025 11:16 AM EDT Uma Aparicio APRN.SHRIMP PEELING MACHINE OPERATOR 01/01/2025 11:24 AM Airway General Information Procedure Start Time/Medication Administration: 01/01/2025 11:16 AM Procedure End Time: 01/01/2025 11:16 AM Patient location during procedure: OR Staffing Anesthesiologist: Tiffanie Bishop MD SHRIMP PEELING MACHINE OPERATOR: Uma Aparicio APRN.SHRIMP PEELING MACHINE OPERATOR Performed by: ARMANDO Indications and Patient Condition Indications for airway management: anesthesia Preoxygenated: yes anesthesia circuit Patient position: sniffing Method: asleep Difficult Mask: No Final Airway Details Final airway type: supraglottic airway Number of attempts at approach: 1 Final Supraglottic Airway: IGEL Size 5 Seal Adequate: yes Airway not difficult Tiffanie Bishop MD ANESTHESIA ORDERABLES Final Result documented in this encounter Visit Diagnoses Not on filedocumented in this encounter Administered Medications Inactive Administered Medications - up to 3 most recent administrations Medication Order MAR Action Action Date Dose Rate Site ceFAZolin iv piggyback 2 g in D5W (iso-osmotic) 100 mL (ANCEF) 2 g, INTRAVENOUS, at 200 mL/hr, Administer over 30 Minutes, PRE-OP ONCE, 1 dose, On 01/01/25 at 1030, Urology Cases PRE-OP ANTIBIOTIC ADMINISTER ONLY IN SURGICAL AREA DO NOT ADMINSTER ON THE FLOOR Refrigerate, Antimicrobial indication: Prophylaxis, Preprocedure Given 01/01/2025 11:12 AM EDT 2 g dexAMETHasone sodium phosphate injection (DECADRON) INTRAVENOUS, NEEDED, Starting on Tue01/01/25 at 1120, Until Tue01/01/25 at 1223, Anesthesia Intraprocedure Given 01/01/2025 11:20 AM EDT 4 mg dexmedeTOMIDine 400 mcg in NaCl 0.9% 100 mL (PRECEDEX) INTRAVENOUS, NEEDED, Starting on Tue01/01/25 at 1114, Until Tue01/01/25 at 1223, Anesthesia Intraprocedure Given 01/01/2025 11:14 AM EDT 40 mcg keTORolac injection (Toradol) INTRAVENOUS, NEEDED, Starting on Tue01/01/25 at 1156, Until Tue01/01/25 at 1223, Anesthesia Intraprocedure Given 01/01/2025 11:56 AM EDT 30 mg lidocaine (PF) 20 mg/mL (2 %) injection (XYLOCAINE) INTRAVENOUS, NEEDED, Starting on Tue01/01/25 at 1113, Until Tue01/01/25 at 1223, Anesthesia Intraprocedure Given 01/01/2025 11:13 AM EDT 100 mg midazolam (PF) injection (VERSED) INTRAVENOUS, NEEDED, Starting on Tue01/01/25 at 1110, Until Tue01/01/25 at 1223, Anesthesia Intraprocedure Given 01/01/2025 11:10 AM EDT 2 mg NaCl 0.9% iv infusion 5-30 mL/hr, INTRAVENOUS, CONTINUOUS, Starting on Tue01/01/25 at 1030, Until Tue01/01/25 at 1218, Preprocedure Continued by Anesthesia 01/01/2025 11:11 AM EDT 30 mL/hr New Bag/Syringe/Bottle 01/01/2025 10:34 AM EDT 30 mL/hr 30 mL/hr ondansetron (PF) injection (ZOFRAN) INTRAVENOUS, NEEDED, Starting on Tue01/01/25 at 1120, Until Tue01/01/25 at 1223, Anesthesia Intraprocedure Given 01/01/2025 11:20 AM EDT 4 mg propofol injection (DIPRIVAN) INTRAVENOUS, NEEDED, Starting on Tue01/01/25 at 1114, Until Tue01/01/25 at 1223, Anesthesia Intraprocedure Given 01/01/2025 12:06 PM EDT 70 mg Given 01/01/2025 11:14 AM EDT 200 mg documented in this encounter Care Teams Aerospace Products Sales Engineer Relationship Specialty Start Date End Date Rei Ingram DO [address] [place] [id number] PCP - General Internal Medicine 08/14/18 Lyubov Figueroa PA-C [address] [place] [address] Planer Setup Operator Internal Medicine 07/22/24 documented as of this encounter
--- OUTSIDE RECORDS SUMMARY | 2025-01-01 11:15 | XMS_ITS | Encounter Summary ---
Author Organization [facility] Address [address] [place] [address] Care Team Providers Care Lining Machine Tender Name Role Phone Juan JoseRei Giovanni RIVERA Primary Care Provider Lyubov Figueroa PA-C Unavailable [phone] Source Comments In the event this information is protected by the Federal Confidentiality of Alcohol and Drug AbusePatient Records regulations: The Federal rules restrict any use of the information to criminally investigate or prosecute any alcohol or drug abuse patient.[facility] Reason for Visit * Auth/Cert (Routine) Specialty Diagnoses / Procedures Referred By Geo t Referred To Contact Diagnoses Calculus of kidney Calculus of kidney [N20.0] Procedures CYSTO/URETERO W/LITHOTRIPSY &INDWELL STENT INSRT CYSTOURETHROSCOPY W/ URETEROSCOPY AND/OR PYELOSCOPY W/ LITHOTRIPSY INCLUDE INSERTION OF INDWELLING URETERAL STENT [facility] [address] [place] [address] Phone: tel: Referral ID Status Reason Start Date Expiration Date Visits Re quested Visits Authorized [id number] 1 1 Encounter Details Date Type Department Care Team ([facility] st Contact Info) Description 01/01/2025 11:15 AM EDT - 01/01/2025 12:45 PM EDT Surgery [facility] Surgery [address] [place], [place] [id number] [place] [address] [place] [address] CYSTOURETHROSCOPY W/ URETEROSCOPY AND/OR PYELOSCOPY W/ LITHOTRIPSY INCLUDE INSERTION OF INDWELLING URETERAL STENT Social History Tobacco Use Types Packs/Day Years [...] is lower risk 7 10/13/2024 Data from: https://www.neighborhoodatlas.medicine[facility] Last address used for calculation [address] [...] Sign Reading Time Taken Comments Blood Pressure 109/73 01/01/2025 12:40 PM EDT Pulse 68 01/01/2025 12:40 PM EDT Temperature 36.8 C (98.3 F) 01/01/2025 12:19 PM EDT Respiratory Rate 10 01/01/2025 12:40 PM EDT Oxygen Saturation 95% 01/01/2025 12:40 PM EDT Inhaled Oxygen Concentration - - [...] the original note [place] [address] or (640) [facility]-CARE DISCHARGE INSTRUCTIONS C O N F I [...] WARNING SIGNS Please call your doctor's office ([phone]) and ask to speak to your doctor's nurse stone polisher if you experience: - Signs of infection [...] questions, please feel free to call [facility] ([phone]) and ask to speak with your doctor's nurse stone polisher PENDING TEST RESULTS: Stone analysis FOLLOW-UP INFORMATION Please follow-up as recommended by your provider: - [facility]: [phone] - [facility] [phone] - If you would like an appointment at the [facility], please call the [facility] appointment line ([phone]) to request an appointment Frequently Asked Questions Pathology and Follow-Up: Q: When will I get my results? A: This is one the most important questions to answer after any surgery. This will take about 5-7 days and will be released on H-care Q: When am I seeing my surgeon again? A: We do our very best to schedule post-operative visits before discharge. The best way to confirm your appointment details is with the urology office during regular business hours. These appointments can also be found on [employer]. Important Phone Numbers to make appointments: Urology Office and Appointment Line: [phone] [facility] (Not Urology) Appointment Line: [phone] [facility] Radiology: [phone] [facility] Interventional Radiology: [phone] Outpatient Lab: [phone] or [phone] Q: What is [employer]? A: H-care is an online tool. It allows you to manage your healthcare. You can communicate with caregivers too. Visit [email or web address] to register. You need an e-mail [...] in-office procedure, you do NOT need a wagon driver salesperson to take you home. Also, there are [...] number for general questions (NOT for emergencies): [phone] FOLLOW THESE INSTRUCTIONS REGARDING ANESTHESIA: 1. Do [...] 11:11 AM EDT OPERATIVE/PROCEDURE REPORT LOG ID: [id number] Surgery/Procedure Date: 01/01/2025 Incision/Procedure Start Time: 11:26 AM Incision Close/Procedure End Time: 12:07 PM Surgeon(s)/Proceduralist(s) and Prison Teacher(s): Surgeons and Role: * Nika Merritt MD [...] used to gently dilate the opening. A 21-Iraqi cystoscope with a 30-degree lens was then advanced into the bladder and used to systematically inspect the bladder and urethra. Findings are listed above under operative findings. The LEFT ureteral orifice was identified and canulated with a 0.035 solo flex glidewire and a 5 Iraqi open-ended ureteral catheter. A 5 upper sorbian open ended catheter was used to perform [...] not see any further stones. A 6 upper sorbian x 30 cm JJ stent without strings [...] 01, 2025 TIME: 12:27 PM PAGER/CONTACT #: [phone] Cosigned by Nika Merritt MD at 01/01/2025 [...] encounter Visit Diagnoses Diagnosis Calculus of kidney Calculus of kidney documented in this encounter [...] infusion 5-30 mL/hr, INTRAVENOUS, CONTINUOUS, Starting on e 01/01/25 at 1030, Until e 01/01/25 at 1218, Preprocedure Continued by Anesthesia 01/01/2025 [...] Starting on e 01/01/25 at 1221, Until 01/01/25 at 1323, [...] mg, ORAL, PRE-OP ONCE, 1 dose, On e 01/01/25 at 1030, Preprocedure 1033 (Given - Provid [...] Ramos RN)1112 (Given - Provider: Uma Aparicio APRN.DIET TECH) promethazine 12.5 mg tab(s) (PHENERGAN) (COMPLETED) 12.5 mg, ORAL, PRE-OP ONCE, 1 dose, On Tue01/01/25 at 1030, Preprocedure 1033 (Given - Provid er: Ivon Ramos RN) Continuous Medication Order 12/30/2024 12/31/2024 01/01/2025 NaCl 0.9% iv infusion (CANCELED) 5-30 mL/hr, INTRAVENOUS, CONTINUOUS, Starting on 01/01/25 at 1030, Until 01/01/25 at 1218, Preprocedure [...] (only) documented in this encounter Care Teams Lining Machine Tender Relationship Specialty Start Date End Date Rei Ingram DO [address] [place] [id number] PCP - General Internal Medicine 08/14/18 Lyubov Figueroa PA-C [address] [place] [address] Ethologist Internal Medicine 07/22/24 documented as of this encounter
--- OUTSIDE RECORDS SUMMARY | 2025-01-01 21:11 | XMS_ITS | Encounter Summary ---
Author Organization [facility] Address [address] [place] [address] Care Team Providers Care Baker Operator Automatic Name Role Phone IngramRei Primary Care Provider Lyubov Figueroa PA-C Unavailable [phone] Source Comments In the event this information is protected by the Federal Confidentiality of Alcohol and Drug AbusePatient Records regulations: The Federal rules restrict any use of the information to criminally investigate or prosecute any alcohol or drug abuse patient.[facility] Encounter Details Date Type Department Care Team (Late st Contact Info) Description 10/26/2024 GI Preprocedure Call Ambulatory Surgery [address] [place] [phone] [place] [address] [address] [place] [phone] Social History Tobacco Use Types Packs/Day Years [...] is lower risk 7 10/13/2024 Data from: https://www.neighborhoodatlas.[facility]/. Last address used for calculation [address] 10/13/2024 Sex and Gender Information Value Date Recorded Sex Assigned at Not on file Legal Sex Male 9:58 AM EST Gender Identity Not on file Sexual Orientation Not on file Occupation Industry Job Start Date Job End Date [employer] Not on file Not on file Not on file documented as of this encounter Functional Status * Are you [...] Margaret Calabrese MA documented in this encounter Plan of Treatment Scheduled Procedures Name Priority Associated Diagnoses Date/Ti me CYSTOURETHROSCOPY W/ URETEROSCOPY AND/OR PYELOSCOPY W/ LITHOTRIPSY INCLUDE INSERTION OF INDWELLING URETERAL STENT Calculus of kidney 01/01/2025 10:56 AM EDT documented as of this encounter Visit Diagnoses Not on filedocumented in this encounter Care Teams Baker Operator Automatic Relationship Specialty Start Date End Date Rei Ingram DO [address] [place] [phone] PCP - General Internal Medicine 08/14/18 Lyubov Figueroa PA-C [address] [place] [address] Tv News Director Internal Medicine 07/22/24 documented as of this encounter
--- OUTSIDE RECORDS SUMMARY | 2025-01-01 21:11 | XMS_ITS | CCD ---
Author Organization [facility] Care Team Providers Care Remediation [employer]anal[employer] Consultant Name Role Phone Mary, Sanjay S Unavailable Unavailable Unavailable, Family Physician Unavailable Un available Unavailable, Family Physician Unavailable Un available Mary Sanjay S Unavailable Unavailable Unavailable, Family Physician Unavailable Un available Unavailable, Family Physician Unavailable Un available LINDSEY HERNÁNDEZ Unavailable Unavailable LINDSEY HERNÁNDEZ Unavailable Unavailable MISC, DOCTOR Primary Care Unavailable ZAYNAB RHODES Admitting Unavailable ZAYNAB RHODES Attending Unavailable ZAYNAB RHODES Consulting Unavailable MISC, DOCTOR Primary Care Unavailable ZUNILDA KRAMER Consulting Unavailabl e FRIDRICH, ZUNILDA Admitting Unavailabl e FRIDRICH, ZUNILDA Attending Unavailabl e MISC, DOCTOR Primary Care Unavailable ZAYNAB RHODES Admitting Unavailable ZAYNAB RHODES Attending Unavailable ZAYNAB RHODES Consulting Unavailable MISC, DOCTOR Primary Care Unavailable MAU GILLETTE Admitting Unavailable MAU GILLETTE Attending Unavailable CORINA SANDERS V Consulting Unavailable MAU GILLETTE Consulting Unavailable BARRON, LUCY Admitting Unavailable BARRON, LUCY Attending Unavailable MISC, DOCTOR Primary Care Unavailable BARRON, LUCY Consulting Unavailable Rei Ingram DO Primary Care Provider Lyubov Figueroa PA-C Unavailable [phone] REI INGRAM Primary Care Unavaila ALCIRA Tavares Referring Unavailable ALCIRA ALATORRE Referring Unavailable REI INGRAM Primary Care Unavailable RENÉ, WAHIB Referring Unavailable REI INGRAM Primary Care Unavailable ALCIRA ALATORRE Referring Unavailable REI INGRAM Primary Care Unavailable REI INGRAM Primary Care Unavailable REI INGRAM Primary Care Unavaila ble RENÉ, WAHIB Referring Unavailable RENÉ, WAHIB Referring Unavailable REI INGRAM Primary Care Unavaila REI Storm Primary Care Unavaila ble KOLLIAS, ANELISE Referring Unavailable REI INGRAM Attending Unavaila REI Storm Primary Care Unavaila ble AURORA CARMICHAEL Attending Unavailable REI INGRAM Referring Unavaila REI Storm Primary Care Unavaila ble KOLLIAS, ANELISE Referring Unavailable ALCIRA ALATORRE Attending Unavailable REI INGRAM [facility] Care Unavaila ble RENÉGENEVIEVE Attending Unavailable SELF Referring Unavailable Allergies Allergy Classification Reported Allergen(s) Allergy Type Date of Onset Reaction(s) Facility (15 sources) Seasonal allergy; Translations: [SEASONAL ALLERGIES] Propensity to adverse reactions (disorder) 0 Other: See Comments [facility] Repository (15 sources) AMOXICILLIN-POT CLAVULANATE; Translations: [AMOXICILLIN-PO T CLAVULANATE] Propensity to adverse reactions to drug (disorder) 0 Mental Status Change [facility] Repository (1 source) Amoxicillin / Clavulanate Drug Allergy [facility] Repository Medications Current Medications Medication Drug Class(es) Dates Sig (Normalized) Sig (Original) famotidine 40 mg oral tablet (5 sources) Histamine-2 Receptor Antagonist Start: 11-27-2024 End: 05-26-2025 take 1 tablet by mouth once daily at bedtime famotidine (PEPCID) 40 mg tablet Take 1 tablet by mouth daily at bedtime. 30 tablet 5 11/27/2024 12/28/2024 Discontinued savanna root, bulk, powd (1 source) savanna root, bul k, powd Active omeprazole 40 mg delayed release oral capsule (10 sources) Proton Pump Inhibitor Start: 10-23-2024 End: 12-28-2024 take 1 capsule by mouth once daily omeprazole (PRILOSEC) 40 mg capsule Indications: Epigastric pain Take 1 capsule by mouth once daily. 30 capsule 5 10/23/2024 12/28/2024 Discontinued pantoprazole 40 mg delayed release oral tablet (5 sources) Proton Pump Inhibitor Start: 11-27-2024 End: 11-27-2025 take 1 tablet by mouth twice daily before mealtime pantoprazole DR (PROTONIX) 40 mg tablet Take 1 tablet by mouth two times a day before meals. 60 tablet 11 11/27/2024 12/28/2024 Discontinued sucralfate 1000 mg oral tablet (10 sources) Aluminum Complex Start: 10-23-2024 End: 12-28-2024 take 1 tablet by mouth at bedtime sucralfate (CARAFATE) 1 gram tablet Indications: Epigastric pain Take 1 tablet by mouth before meals and at bedtime. 120 tablet 1 10/23/2024 12/28/2024 Discontinued Completed/Discontinued Medications Medication Drug Class(es) Dates Sig (Normalized) Sig (Original) amitriptyline hydrochloride 10 mg oral tablet (2 sources) Tricyclic Antidepressant Start: 12-07-2018 End: 10-23-2024 amitriptyline (ELAVIL) 10 mg tablet 2 tabs = 20 mg at bedtime 120 tablet 5 12/07/2018 10/23/2024 Discontinued (Discontinued by Patient) aspirin 325 mg oral tablet (2 sources) Platelet Aggregation Inhibitor, Nonsteroidal Anti-inflammatory Drug Start: 07-31-2018 End: 10-23-2024 take 1 tablet by mouth once daily aspirin 325 mg tablet TAKE 1 TABLET BY MOUTH EVERY DAY 30 tablet 07/31/2018 10/23/2024 Discontinued (Discontinued by Patient) cholecalciferol 0.05 mg oral tablet (2 sources) Vitamin D Start: 07-03-2018 End: 10-23-2024 take 1 tablet by mouth once daily cholecalciferol (VITAMIN D-3) 2,000 unit tablet Indications: Vitamin D deficiency Take 1 tablet by mouth once daily. 07/03/2018 10/23/2024 Discontinued (Discontinued by Patient) lidocaine 0.05 mg/mg medicated patch (2 sources) Antiarrhythmic, Amide Local Anesthetic Start: 06-15-2018 End: 10-23-2024 lidocaine (LIDODERM) 5 % Place one patch on area of pain, leave in place for 12 hours and remove for [address] new patch next day 15 Patch 06/15/2018 10/23/2024 Discontinued (Discontinued by Patient) naftifine hydrochloride 0.01 mg/mg topical gel (2 sources) Allylamine Antifungal Start: 05-29-2018 End: 10-23-2024 Naftifine HCl (NAFTIN) 1 % gel Apply 1 application to affected area once daily. 60 g 11 05/29/2018 10/23/2024 Discontinued (Discontinued by Patient) naproxen 500 mg oral tablet (2 sources) Nonsteroidal Anti-inflammatory Drug Start: 07-17-2019 End: 10-23-2024 take 1 tablet by mouth twice daily at mealtime naproxen (NAPROSYN) 500 mg tablet Indications: Right elbow pain Take 1 tablet by mouth twice daily with meals. 60 tablet 5 07/17/2019 10/23/2024 Discontinued (Discontinued by Patient) PARoxetine hydrochloride 10 mg oral tablet (2 sources) Serotonin Reuptake Inhibitor Start: 05-29-2018 End: 10-23-2024 take 1 tablet by mouth once daily PARoxetine (PAXIL) 10 mg tablet Indications: Obsessional thoughts Take 1 tablet by mouth once daily. 30 tablet 1 05/29/2018 10/23/2024 Discontinued (Discontinued by Patient) vitamin b12 1 mg oral tablet (2 sources) Vitamin B12 Start: 07-03-2018 End: 10-23-2024 take 1 tablet by mouth once daily cyanocobalamin (VITAMIN B-12) 1,000 mcg tab Indications: Vitamin B12 deficiency Take 1 tablet by mouth once daily. 07/03/2018 10/23/2024 Discontinued (Discontinued by Patient) Problems Active Problems Problem Classification Problem Date Documented Date Episodic/Chronic Abdominal pain (20 sources) Pain in male pelvis; Translations: [Pelvic and perineal pain] Onset: 11-25-2016 Resolved: 06-08-2017 06-08-2017 Episodic Acquired foot deformities (1 source) Bunionette of right foot; Translations: [Bunionette of right foot] Onset: 06-24-2018 Acute bronchitis (1 source) Acute bronchitis, unspecified; Translations: [ACUTE BRONCHITIS UNSPECIFIED] Onset: 07-04-2019 Episodic Calculus of urinary tract (4 sources) Kidney stone; Translations: [Calculus of kidney] Onset: 11-30-2024 11-30-2024 Episodic Fever of unknown origin (3 sources) Fever, unspecified; Translations: [FEVER UNSPECIFIED] Onset: 06-26-2019 Episodic Immunizations and screening for infectious disease (1 source) Contact with and (suspected) exposure to other communicable diseases; Translations: [CONTACT W EXPS OTH COMMUNICABLE DZ] Onset: 06-28-2019 Episodic Nausea and vomiting (12 sources) Nausea with vomiting, unspecified; Translations: [Nausea] Onset: 06-28-2019 11-22-2024 Episodic Other connective tissue disease (1 source) Pain in left foot; Translations: [Pain in left foot] Onset: 07-03-2018 Episodic Other connective tissue disease (1 source) Peroneal tendinitis, right leg; Translations: [Peroneal tendinitis, right leg] Onset: 06-24-2018 Episodic Other lower respiratory disease (3 sources) Cough; Translations: [COUGH] Onset: 07-02-2019 Episodic Other lower respiratory disease (2 sources) Dyspnea; Translations: [Shortness of breath] 10-23-2024 Episodic Other upper respiratory disease (11 sources) Allergic rhinitis; Translations: [Other allergic rhinitis] Onset: 09-29-2009 09-29-2009 Chronic Other upper respiratory infections (11 sources) Chronic sinusitis; Translations: [Chronic sinusitis, unspecified] Onset: 09-29-2009 Resolved: 06-08-2017 06-08-2017 Chronic Residual codes; unclassified (2 sources) Obstructive sleep apnea syndrome; Translations: [Obstructive sleep apnea (adult) (pediatric)] Onset: 12-28-2024 12-28-2024 Chronic Residual codes; unclassified (1 source) Obstructive sleep apnea (adult) (pediatric); Translations: [CHAY (obstructive sleep apnea)] Onset: 12-28-2024 Chronic Residual codes; unclassified (5 sources) Early satiety; Translations: [Early satiety] 11-22-2024 Episodic Residual codes; unclassified (1 source) Early satiety; Translations: [Early satiety] Onset: 11-23-2024 Episodic Residual codes; unclassified (1 source) Other specified postprocedural states; Translations: [OTH SPECIFIED POSTPROCEDURAL STATES] Onset: 08-10-2018 Spondylosis; intervertebral disc disorders; other back problems (20 sources) Lumbar post-laminectomy syndrome; Translations: [Postlaminectomy syndrome, not elsewhere classified] Onset: 02-18-2009 02-18-2009 Chronic Unclassified (11 sources) PMH - PAST MEDICAL HISTORY OF 02-23-2024 Unclassified (11 sources) Drug therapy finding; Translations: [DVT prophylaxis] Onset: 07-01-2013 Unclassified (1 source) abd pain, SOb Onset: 10-11-2024 Past or Other Problems Problem Classification Problem Date Documented Date Episodic/Chronic Acquired foot deformities (20 sources) Bilateral Tailor's bunion of feet; Translations: [Bunionette of right foot] Onset: 02-22-2018 02-22-2018 Episodic Administrative/social admission (4 sources) Encounter for issue of repeat prescription; Translations: [ENC FOR ISSUE REPEAT PRESCRIPTION] Onset: 08-08-2018 Episodic Allergic reactions (1 source) Allergy, unspecified, initial encounter; Translations: [ALLERGY UNSPECIFIED INITIAL ENCNTR] Onset: 07-21-2018 Episodic Complication of device; implant or graft (1 source) Unspecified complication of internal prosthetic device, implant and graft, initial encounter; Translations: [UNS COMP INT PROS DEV IMPL GFT INIT] Onset: 07-11-2018 Episodic Mycoses (20 sources) Tinea cruris; Translations: [Tinea cruris] Onset: 04-20-2011 04-20-2011 Episodic Nonspecific chest pain (11 sources) Chest pain; Translations: [Chest pain, unspecified] Onset: 07-01-2013 Resolved: 06-08-2017 08-10-2021 Episodic Other aftercare (1 source) terminal gauger (current) use of aspirin; Translations: [SENIOR LIVING CURRENT USE OF ASPIRIN] Onset: 08-10-2018 Episodic Other connective tissue disease (4 sources) Pain in right leg; Translations: [PAIN IN RIGHT LEG] Onset: 07-07-2018 Episodic Other connective tissue disease (11 sources) Pain in limb; Translations: [Pain in unspecified limb] Onset: 06-05-2012 06-05-2012 Episodic Other connective tissue disease (11 sources) Pain of toe of right foot; Translations: [Pain in right toe(s)] Onset: 10-27-2017 10-27-2017 Episodic Other connective tissue disease (11 sources) Peroneal tendinitis; Translations: [Peroneal tendinitis, right leg] Onset: 11-20-2017 11-20-2017 Episodic Other connective tissue disease (11 sources) Pain in left foot; Translations: [Pain in left foot] Onset: 02-22-2018 02-22-2018 Episodic Other connective tissue disease (11 sources) Peroneal tendinitis of right lower limb; Translations: [Peroneal tendinitis, right leg] Onset: 06-24-2018 06-24-2018 Episodic Other connective tissue disease (11 sources) Spasm; Translations: [Other muscle spasm] Onset: 11-25-2016 Resolved: 06-08-2017 06-08-2017 Episodic Other nervous system disorders (11 sources) Cerebrospinal fluid rhinorrhea; Translations: [Cerebrospinal fluid rhinorrhea] Onset: 06-18-2011 06-18-2011 Episodic Other nervous system disorders (11 sources) Acute postoperative pain; Translations: [Other acute postprocedural pain] Onset: 07-11-2018 07-11-2018 Episodic Other non-traumatic joint disorders (11 sources) Arthralgia of the ankle and/or foot; Translations: [Pain in right ankle and joints of right foot] Onset: 09-29-2017 09-29-2017 Episodic Other skin disorders (3 sources) Rash and other nonspecific skin eruption; Translations: [RASH OTH NONSPECIFIC SKIN ERUPTION] Onset: 07-20-2018 Episodic Other skin disorders (20 sources) Ingrowing nail; Translations: [Ingrowing nail] Onset: 06-05-2012 Resolved: 06-08-2017 06-05-2012 Episodic Other skin disorders (11 sources) Ingrowing great toenail; Translations: [Ingrowing nail] Onset: 10-27-2017 10-27-2017 Episodic Other skin disorders (11 sources) Callosity; Translations: [Corns and callosities] Onset: 02-22-2018 02-22-2018 Episodic Other upper respiratory infections (13 sources) Acute sinusitis, unspecified; Translations: [Acute upper respiratory infection, unspecified] Onset: 01-09-2010 Resolved: 06-08-2017 06-08-2017 Episodic Skin and subcutaneous tissue infections (11 sources) Onychia of toe; Translations: [Cellulitis of unspecified toe] Onset: 06-05-2012 06-05-2012 Episodic Spondylosis; intervertebral disc disorders; other back problems (11 sources) Finding of back; Translations: [Other specified dorsopathies, site unspecified] Onset: 02-18-2009 02-18-2009 Episodic Sprains and strains (20 sources) Injury of musculoskeletal system; Translations: [Sprain of unspecified parts of thorax, initial encounter] Onset: 09-02-2010 Resolved: 06-08-2017 09-02-2010 Episodic Unclassified (11 sources) SUMMARY Onset: 07-01-2013 Resolved: 11-12-2016 08-10-2021 Results Test Name Value Interpretation Reference Range Facility HISTORY PHYSICALon HISTORY PHYSICAL HNO ID: [id number] Author: YVONNE KRUEGER APRN.PALMIRA Service: ? Author Type: Nurse Practitioner Type: H&P Filed: 12/28/2024 08:19 Note Text: [facility] HISTORY AND PHYSICAL EXAMINATION SERVICE DATE: 12/28/2024 SERVICE TIME: 7:20 AM PRIMARY CARE PHYSICIAN: Rei Ingram DO REASON FOR VISIT: Guillermo Hernandez is a 54 year old male who is scheduled for Left - CYSTOURETHROSCOPY W/ URETEROSCOPY AND/OR PYELOSCOPY W/ LITHOTRIPSY INCLUDE INSERTION OF INDWELLING URETERAL STENT at the request of Dr. Genevieve Merritt for consultation. My final recommendation will be communicated back to the requesting physician by way of shared medical record or letter. Assessment CHAY (obstructive sleep apnea) Assessment: s/p UP 2009 ANESTHESIA FINDINGS: Intubation History: No history [...] BMI less than or equal to 35 kg/m2 STOP-Bang Score: 2 [id number] Score: Age: <65 Sex: male CHF history: No Hypertension history: No Stroke/TIA/thromboemboli sm history: No Vascular disease history: No Diabetes history: No [id number] Score: 0 ARISCAT Score: Age: 51-80 Preoperative [...] Foot Peroneal Tendonitis, Right Acute Post-Operative Pain Chay (Obstructive Sleep Apnea) Subjective CHIEF COMPLAINT: Pre-op [...] function is low normal. EF = 54 ? 5% (2D biplane) Baseline left ventricular diastolic function is normal. - The right ventricle is normal in size. Right ventricular systolic function is normal. - There are (more content not included)... [facility] Bacteria Ur Culton 5 Bacteria identified Cx Nom (U) CULTURE, URINE: No growth (<1,000 CFU/ml) Normal [facility] Comment on above: Performed By: #### 6 30-4 ####[facility]CL[facility] [id number] [address] [place] GASTRIC EMPTYING SOLIDon 12-12-2024 NM GASTRIC EMPTYING SOLID * * *Final Report* * * DATE OF EXAM: Dec 12 2024 2:31PM [facility] 0017 - [place] GASTRIC EMPTYING SOLID / PROCEDURE REASON: Nausea * * * * Physician Interpretation * * * * EXAMINATION: SOLID MEAL GASTRIC EMPTYING STUDY CLINICAL HISTORY: Nausea TECHNIQUE: 1..0 millicuries of Tc-99m sulfur colloid administered PO in a solid meal (see below) consumed over 10 minutes. Static planar images of the gastric region obtained at 0, 1, 2, and 4 hours. Geometric means were used to calculate gastric retention values. Reference, https://doi.org/10.2967/ jnmt.107.470081 * Solid meal ingested by the patient: 4 ounces of egg beater 2 pieces of toast 1 ounce of jelly and 8 ounces of water * Standard solid meal for adults: 4 ounces of egg beaters, 2 slices of toast, 1 ounce of jelly, and 8 ounces of water COMPARISON: Not available RESULT: Solid meal (or solid meal equivalent) gastric retention values: * 39% retention at 1 hour (normal range, 30-90%; accelerated emptying defined as <30% at 1 hour) * 9% retention at 2 hours (normal range, <60%) * 0% retention at 4 hours (normal range, <10%) Fundal Accommodation: Adequate IMPRESSION: Normal gastric emptying rate for the solid meal. Radioisotope Technologist: PSCB Transcribe Date/Time: Dec 12 2024 3:33P Dictated by : MAYA DIAZ MD This examination was interpreted and the report reviewed and electronically signed by: MAYA DIAZ MD on Dec 12 2024 3:35PM EST [id number] [facility] Stomach Views for gastric emptying solid phase W radionuclide Brad 12-12-2024 IMPRESSION: Normal gastric emptying rate for the solid meal. Radioisotope Technologist: PSCB Transcribe Date/Time: Dec 12 2024 3:33P Dictated by : MAYA DIAZ MD This examination was interpreted and the report reviewed and electronically signed by: MAYA DIAZ MD on Dec 12 2024 3:35PM EST [facility] * * *Final Report* * * DATE OF EXAM: Dec 12 2024 2:31PM [facility] 0017 - [place] GASTRIC EMPTYING SOLID / PROCEDURE REASON: Nausea * * * * Physician Interpretation * * * * EXAMINATION: SOLID MEAL GASTRIC EMPTYING STUDY CLINICAL HISTORY: Nausea TECHNIQUE: 1..0 millicuries of Tc-99m sulfur colloid administered PO in a solid meal (see below) consumed over 10 minutes. Static planar images of the gastric region obtained at 0, 1, 2, and 4 hours. Geometric means were used to calculate gastric retention values. Reference, https://doi.org/10.2967/ jnne.107.203634 * Solid meal ingested by the patient: 4 ounces of egg beater 2 pieces of toast 1 ounce of jelly and 8 ounces of water * Standard solid meal for adults: 4 ounces of egg beaters, 2 slices of toast, 1 ounce of jelly, and 8 ounces of water COMPARISON: Not available RESULT: Solid meal (or solid meal equivalent) gastric retention values: * 39% retention at 1 hour (normal range, 30-90%; accelerated emptying defined as <30% at 1 hour) * 9% retention at 2 hours (normal range, <60%) * 0% retention at 4 hours (normal range, <10%) Fundal Accommodation: Adequate [facility] Provider, Tejas Gómez - 12/12/2024 * * *Final Report* * * DATE OF EXAM: Dec 12 2024 2:31PM [facility] 0017 - [place] GASTRIC EMPTYING SOLID / PROCEDURE REASON: Nausea * * * * Physician Interpretation * * * * EXAMINATION: SOLID MEAL GASTRIC EMPTYING STUDY CLINICAL HISTORY: Nausea TECHNIQUE: 1..0 millicuries of Tc-99m sulfur colloid administered PO in a solid meal (see below) consumed over 10 minutes. Static planar images of the gastric region obtained at 0, 1, 2, and 4 hours. Geometric means were used to calculate gastric retention values. Reference, https://doi.org/10.2967/ [facility].107.967365 * Solid meal ingested by the patient: 4 ounces of egg beater 2 pieces of toast 1 ounce of jelly and 8 ounces of water * Standard solid meal for adults: 4 ounces of egg beaters, 2 slices of toast, 1 ounce of jelly, and 8 ounces of water COMPARISON: Not available RESULT: Solid meal (or solid meal equivalent) gastric retention values: * 39% retention at 1 hour (normal range, 30-90%; accelerated emptying defined as <30% at 1 hour) * 9% retention at 2 hours (normal range, <60%) * 0% retention at 4 hours (normal range, <10%) Fundal Accommodation: Adequate IMPRESSION IMPRESSION: Normal gastric emptying rate for the solid meal. Radioisotope Technologist: ARNALDO Transcribe Date/Time: Dec 12 2024 3:33P Dictated by : MAYA DIAZ MD This examination was interpreted and the report reviewed and electronically signed by: MAYA DIAZ MD on Dec 12 2024 3:35PM EST [facility] Radiology Study observation (narrative) [facility] Stomach Views for gastric emptying solid phase W radionuclide POOrdered By: [facility] Provider on 12-12-2024 [facility] Love 12-11-2024 ANABELL Telephone (AVXRCT) -------- GUILLERMO HERNANDEZ Cliff ([id number]) 1970 M Date Time Provider Department 12/11/24 BEATRIZ POWERS AVXRMO During your visit today, we recorded the following information about you: Beatriz Powers, RT(R) 12/11/2024 1:09 PM Signed Spoke with patient, confirmed appointment and went over prep Allergies As of Date: 12/11/2024 Noted Allergy Reaction AUGMENTIN (AMOXICILLIN-POT CLAVUL*07/16/2010 1 - Mental Status Change Comments: Lightheadedness SEASONAL ALLERGIES 07/08/2010 14 - Other: See Comments Date Reviewed: 11/30/2024 Reviewed by: Genevieve Merritt MD - Fully Assessed Reason for Visit: Radiology NM [9979] Prescriptions as of 12/11/2024 - pantoprazole DR (PROTONIX) 40 mg tablet Take 1 tablet by mouth two times a day before meals. - famotidine (PEPCID) 40 mg tablet Take 1 tablet by mouth daily at bedtime. - omeprazole (PRILOSEC) 40 mg capsule Take 1 capsule by mouth once daily. - sucralfate (CARAFATE) 1 gram tablet Take 1 tablet by mouth before meals and at bedtime. Meds Comments as of 11/10/2016: none Problem List As Of Date 12/11/2024 Noted Resolved PMH - PAST MEDICAL HISTORY OF POSTLAMINECT SYND-LUMBAR [M96.1] 02/18/2009 OTHER BACK SYMPTOMS [M53.80] 02/18/2009 Unspecified sinusitis (chronic) [J32.9] 09/29/2009 06/08/2017 Allergic Rhinitis due to Other Allergen [J30.89]09/29/2009 Acute sinusitis, unspecified [J01.90] 01/09/2010 06/08/2017 Sprain of neck [S13.9XXA] 09/02/2010 06/08/2017 Thoracic sprain and strain [S23.9XXA] 09/02/2010 Tinea cruris [B35.6] 04/20/2011 Cervical facet joint syndrome [M47.812] 05/21/2011 Cerebrospinal fluid rhinorrhea [G96.01] 06/18/2011 Onychia of toe [L03.039] 06/05/2012 Ingrowing nail [L60.0] 06/05/2012 06/08/2017 Onychocryptosis [L60.0] 06/05/2012 Pain in limb [M79.609] 06/05/2012 SUMMARY [V999.95] 07/01/2013 11/12/2016 Chest pain [R07.9] 07/01/2013 06/08/2017 DVT prophylaxis [[id number]] 07/01/2013 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/15/2015 Levator spasm [M62.838] 11/25/2016 06/08/2017 Male pelvic pain [R10.2] 11/25/2016 06/08/2017 Pain, joint, ankle and foot, right [M25.571] 09/29/2017 Ingrown right big toenail [L60.0] 10/27/2017 Pain in toe of right foot [M79.674] 10/27/2017 Onychomycosis with ingrown toenail [B35.1, L60.*10/27/2017 Peroneal tendonitis of right lower leg [M76.71] 11/20/2017 Callus [L84] 02/22/2018 Tinea pedis of both feet [B35.3] 02/22/2018 Tailor's bunion of both feet [M21.621, M21.622] 02/22/2018 Pain in left foot [M79.672] 02/22/2018 Bunionette of right foot [M21.621] 06/24/2018 Peroneal tendonitis, right [M76.71] 06/24/2018 Acute post-operative pain [G89.18] 07/11/2018 Encounter Status:Closed by BEATRIZ POWERS on 12/11/24 [facility] MARYGUILLERMO Croonado ([id number]) 1970 M Date Time Provider Department 12/06/24 ALCIRA ALATORRE During your visit today, we recorded the following information about you: Jose Jacques 12/06/2024 3:22 PM Signed Patient states he has new symptoms and wants nurse/doctor to contact him. He says that he has abdominal pain an hour or two after eating. Please advise Tere Wise RN 12/06/2024 3:42 PM Signed GES 12/12/24 Call to patient, About 1.5 weeks ago, develops a punch in the gut. PPI, pepcid and carafate not helping with symptoms. Intermittent nausea. Reviewed GES will help to further evaluate his symptoms. Could be related to slow gastric emptying. Patient states understanding. Advised once results are finalized, our office will reach out with any further recommendations. Tere Wise RN Allergies As of Date: 12/06/2024 Noted Allergy Reaction AUGMENTIN (AMOXICILLIN-POT CLAVUL*07/16/2010 1 - Mental Status Change Comments: Lightheadedness SEASONAL ALLERGIES 07/08/2010 14 - Other: See Comments Date Reviewed: 11/30/2024 Reviewed by: Genevieve Merritt MD - Fully Assessed Reason for Visit: Patient Update [1234] Prescriptions as of 12/06/2024 - pantoprazole DR (PROTONIX) 40 mg tablet Take 1 tablet by mouth two times a day before meals. - famotidine (PEPCID) 40 mg tablet Take 1 tablet by mouth daily at bedtime. - omeprazole (PRILOSEC) 40 mg capsule Take 1 capsule by mouth once daily. - sucralfate (CARAFATE) 1 gram tablet Take 1 tablet by mouth before meals and at bedtime. 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] 02/18/2009 OTHER BACK SYMPTOMS [M53.80] 02/18/2009 Unspecified sinusitis (chronic) [J32.9] 09/29/2009 06/08/2017 Allergic Rhinitis due to Other Allergen [J30.89]09/29/2009 Acute sinusitis, unspecified [J01.90] 01/09/2010 06/08/2017 Sprain of neck [S13.9XXA] 09/02/2010 06/08/2017 Thoracic sprain and strain [S23.9XXA] 09/02/2010 Tinea cruris [B35.6] 04/20/2011 Cervical facet joint syndrome [M47.812] 05/21/2011 Cerebrospinal fluid rhinorrhea [G96.01] 06/18/2011 Onychia of toe [L03.039] 06/05/2012 Ingrowing nail [L60.0] 06/05/2012 06/08/2017 Onychocryptosis [L60.0] 06/05/2012 Pain in limb [M79.609] 06/05/2012 SUMMARY [V999.95] 07/01/2013 11/12/2016 Chest pain [R07.9] 07/01/2013 06/08/2017 DVT prophylaxis [[id number]] 07/01/2013 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/15/2015 Levator spasm [M62.838] 11/25/2016 06/08/2017 Male pelvic pain [R10.2] 11/25/2016 06/08/2017 Pain, joint, ankle and foot, right [M25.571] 09/29/2017 Ingrown right big toenail [L60.0] 10/27/2017 Pain in toe of right foot [M79.674] 10/27/2017 Onychomycosis with ingrown toenail [B35.1, L60.*10/27/2017 Peroneal tendonitis of right lower leg [M76.71] 11/20/2017 Callus [L84] 02/22/2018 Tinea pedis of both feet [B35.3] 02/22/2018 Tailor's bunion of both feet [M21.621, M21.622] 02/22/2018 Pain in left foot [M79.672] 02/22/2018 Bunionette of right foot [M21.621] 06/24/2018 Peroneal tendonitis, right [M76.71] 06/24/2018 Acute post-operative pain [G89.18] 07/11/2018 Encounter Status:Closed by JOSE JACQUES on 12/06/24 [facility] 12-05-2024 CNPN Telephone (UROLAV) -------- GUILLERMO HERNANDEZ [place] ([id number]) 1970 M Date Time Provider Department 12/05/24 GENEVIEVE MERRITT UROLAV During your visit today, we recorded the following information about you: Missy Amaya 12/05/2024 3:31 PM Signed Attempted to call patient but VM is not set up yet Missy Amaya 12/13/2024 12:34 PM Signed Patient scheduled for surgery on 12/25/24 at [facility] for LASER URS. Patient will be informed of surgery time the day before surgery between 1pm-4pm. PAT is scheduled for 12/14/24. Was Urine Culture ordered or done: Yes 12/14/24 Per 10/12/24 FYI Patient is 100% FA till 01/07/25. Surgery FC is working on request Missy Amaya 12/13/2024 12:34 PM Signed Addended by: MISSY AMAYA on: 12/13/2024 12:34 PM Modules accepted: Orders Missy Amaya 12/13/2024 12:35 PM Signed I did inform patient his VM was full. He was not aware and will clear it out Allergies As of Date: 12/05/2024 Noted Allergy Reaction AUGMENTIN (AMOXICILLIN-POT CLAVUL*07/16/2010 1 - Mental Status Change Comments: Lightheadedness SEASONAL ALLERGIES 07/08/2010 14 - Other: See Comments Date Reviewed: 11/30/2024 Reviewed by: Genevieve Merritt MD - Fully Assessed Primary Visit Diagnosis:Kidney stone [N20.0] Other Visit Diagnosis:Preoperative testing [Z01.818] Order(s):BACTERIAL CULTURE, URINE [SQURCUL] Order #: [id number] FUTURE Prescriptions as of 12/13/2024 - pantoprazole DR (PROTONIX) 40 mg tablet Take 1 tablet by mouth two times a day before meals. - famotidine (PEPCID) 40 mg tablet Take 1 tablet by mouth daily at bedtime. - omeprazole (PRILOSEC) 40 mg capsule Take 1 capsule by mouth once daily. - sucralfate (CARAFATE) 1 gram tablet Take 1 tablet by mouth before meals and at bedtime. 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] 02/18/2009 OTHER BACK SYMPTOMS [M53.80] 02/18/2009 Unspecified sinusitis (chronic) [J32.9] 09/29/2009 06/08/2017 Allergic Rhinitis due to Other Allergen [J30.89]09/29/2009 Acute sinusitis, unspecified [J01.90] 01/09/2010 06/08/2017 Sprain of neck [S13.9XXA] 09/02/2010 06/08/2017 Thoracic sprain and strain [S23.9XXA] 09/02/2010 Tinea cruris [B35.6] 04/20/2011 Cervical facet joint syndrome [M47.812] 05/21/2011 Cerebrospinal fluid rhinorrhea [G96.01] 06/18/2011 Onychia of toe [L03.039] 06/05/2012 Ingrowing nail [L60.0] 06/05/2012 06/08/2017 Onychocryptosis [L60.0] 06/05/2012 Pain in limb [M79.609] 06/05/2012 SUMMARY [V999.95] 07/01/2013 11/12/2016 Chest pain [R07.9] 07/01/2013 06/08/2017 DVT prophylaxis [[id number]] 07/01/2013 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/15/2015 Levator spasm [M62.838] 11/25/2016 06/08/2017 Male pelvic pain [R10.2] 11/25/2016 06/08/2017 Pain, joint, ankle and foot, right [M25.571] 09/29/2017 Ingrown right big toenail [L60.0] 10/27/2017 Pain in toe of right foot [M79.674] 10/27/2017 Onychomycosis with ingrown toenail [B35.1, L60.*10/27/2017 Peroneal tendonitis of right lower leg [M76.71] 11/20/2017 Callus [L84] 02/22/2018 Tinea pedis of both feet [B35.3] 02/22/2018 Tailor's bunion of both feet [M21.621, M21.622] 02/22/2018 Pain in left foot [M79.672] 02/22/2018 Bunionette of right foot [M21.621] 06/24/2018 Peroneal tendonitis, right [M76.71] 06/24/2018 Acute post-operative pain [G89.18] 07/11/2018 Encounter Status:Closed by MISSY AMAYA on 12/05/24 [facility] NM HEPATOBILIARY W EF AND/OR RXon 12-05-2024 NM HEPATOBILIARY W EF AND/OR RX * * *Final Report* * * DATE OF EXAM: Dec 05 2024 3:37PM [facility] 0021 - ND HEPATOBILIARY W EF AND/OR RX / PROCEDURE REASON: Nausea * * * * Physician Interpretation * * * * EXAMINATION: HEPATOBILIARY SCAN WITH GALLBLADDER EJECTION FRACTION CLINICAL HISTORY: Nausea. TECHNIQUE: 5.4 millicuries of Tc-99m mebrofenin was administered IV. Dynamic planar imaging of the abdomen acquired for 60 minutes. Next, 1.89 mcg of was administered followed by additional imaging to calculate a gallbladder ejection fraction. CORRELATION: CT abdomen/pelvis 10/12/2024 RESULT: Liver: Normal uptake and biodistribution. Gallbladder: Activity present by one hour, indicating cystic duct patency. Ejection fraction (EF): 40% (normal > 35% and < 80%) CBD: Proximal small bowel activity present by 1 hour, indicating patency. IMPRESSION: No scintigraphic evidence of cystic duct obstruction. Normal gallbladder ejection fraction. Radioisotope Technologist: PSCB Transcribe Date/Time: Dec 05 2024 3:43P Dictated by : LIA CURIEL, This examination was interpreted and the report reviewed and electronically signed by: SANDRA BENNETT MD on Dec 05 2024 4:38PM EST [id number] [facility] 12-04-2024 [facility] Telephone (AVXRMO) -------- GUILLERMO HERNANDEZ ([id number]) 1970 M Date Time Provider Department 12/04/24 CARMEN ANGUIANO AVXRCT During your visit today, we recorded the following information about you: Carmen Anguiano CNMT 12/04/2024 2:39 PM Signed Spoke with PT to confirm apt and to explain the exam and any prep. Allergies As of Date: 12/04/2024 Noted Allergy Reaction AUGMENTIN (AMOXICILLIN-POT CLAVUL*07/16/2010 1 - Mental Status Change Comments: Lightheadedness SEASONAL ALLERGIES 07/08/2010 14 - Other: See Comments Date Reviewed: 11/30/2024 Reviewed by: Genevieve Merritt MD - Fully Assessed Reason for Visit: Radiology NM [1489] Prescriptions as of 12/04/2024 - pantoprazole DR (PROTONIX) 40 mg tablet Take 1 tablet by mouth two times a day before meals. - famotidine (PEPCID) 40 mg tablet Take 1 tablet by mouth daily at bedtime. - omeprazole (PRILOSEC) 40 mg capsule Take 1 capsule by mouth once daily. - sucralfate (CARAFATE) 1 gram tablet Take 1 tablet by mouth before meals and at bedtime. 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] 02/18/2009 OTHER BACK SYMPTOMS [M53.80] 02/18/2009 Unspecified sinusitis (chronic) [J32.9] 09/29/2009 06/08/2017 Allergic Rhinitis due to Other Allergen [J30.89]09/29/2009 Acute sinusitis, unspecified [J01.90] 01/09/2010 06/08/2017 Sprain of neck [S13.9XXA] 09/02/2010 06/08/2017 Thoracic sprain and strain [S23.9XXA] 09/02/2010 Tinea cruris [B35.6] 04/20/2011 Cervical facet joint syndrome [M47.812] 05/21/2011 Cerebrospinal fluid rhinorrhea [G96.01] 06/18/2011 Onychia of toe [L03.039] 06/05/2012 Ingrowing nail [L60.0] 06/05/2012 06/08/2017 Onychocryptosis [L60.0] 06/05/2012 Pain in limb [M79.609] 06/05/2012 SUMMARY [V999.95] 07/01/2013 11/12/2016 Chest pain [R07.9] 07/01/2013 06/08/2017 DVT prophylaxis [[id number]] 07/01/2013 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/15/2015 Levator spasm [M62.838] 11/25/2016 06/08/2017 Male pelvic pain [R10.2] 11/25/2016 06/08/2017 Pain, joint, ankle and foot, right [M25.571] 09/29/2017 Ingrown right big toenail [L60.0] 10/27/2017 Pain in toe of right foot [M79.674] 10/27/2017 Onychomycosis with ingrown toenail [B35.1, L60.*10/27/2017 Peroneal tendonitis of right lower leg [M76.71] 11/20/2017 Callus [L84] 02/22/2018 Tinea pedis of both feet [B35.3] 02/22/2018 Tailor's bunion of both feet [M21.621, M21.622] 02/22/2018 Pain in left foot [M79.672] 02/22/2018 Bunionette of right foot [M21.621] 06/24/2018 Peroneal tendonitis, right [M76.71] 06/24/2018 Acute post-operative pain [G89.18] 07/11/2018 Encounter Status:Closed by CARMEN ANGUIANO on 12/04/24 Normal [facility] Bacteria Ur Culton 5 Bacteria identified Cx Nom (U) CULTURE, URINE: No growth (<1,000 CFU/ml) Normal [facility] Comment on above: Performed By: #### 6 30-4 #### [facility] CLIA [id number] [address] [place] [address] [facility] CNOVon 11-30-2024 CNOV Office Visit (UROLAV ) -------- GUILLERMO HERNANDEZ ([id number]) 1970 M Date Time Provider Department 11/30/24 11:00 AM GENEVIEVE MERRITT UROLAV During your visit today, we recorded the following information about you: Weight 94.3 kg Genevieve Merritt MD 11/30/2024 11:32 AM Signed PATIENT INFO: Guillermo Hernandez 54 year old REFERRING PROVIDER.: SELF PCP: Rei Ingram DO CC: Nephrolithiasis HPI: Guillermo Hernandez is a 54 year old year old male with a PMH significant for chest pain, CHAY, seizures who presents today for evaluation of nephrolithiasis. No prior hx of nephrolithiasis Initially presented to [facility] ED 10/12/24 with c/o intermittent epigastric discomfort, intermittent shortness of breath, nausea. UA showed no concern for infection. CT demonstrated evidence of 6 mm stone in left upper pole. Today the patient is denies pain, new stone-related symptoms. No family hx of nephrolithiasis. Of note was seen by Dr. Rayo (2018) for pelvic floor muscle spasm.Pain resolved on follow up visit. Creatinine Date Value Ref Range Status 10/12/2024 0.89 0.73 - 1.22 mg/dL Final No results found for: PSA Color (no units) Date Value 10/12/2024 Yellow 05/29/2018 Yellow Clarity (no units) Date Value 10/12/2024 Clear 05/29/2018 Clear Glucose, Urine Date Value 10/12/2024 Negative 05/29/2018 Negative mg/dL Bilirubin, Urine (no units) Date Value 10/12/2024 Negative 05/29/2018 Negative Ketones, Urine (no units) Date Value 10/12/2024 Negative 05/29/2018 Negative Specific [place], Ur (no units) Date Value 10/12/2024 >1.050 05/29/2018 1.008 Hemoglobin/Blood,Ur Date Value 10/12/2024 Negative 05/29/2018 Negative pH, Urine (no units) Date Value 10/12/2024 6.5 05/29/2018 7.0 Protein, Urine Date Value 10/12/2024 1+ 05/29/2018 Negative mg/dL Urobilinogen (no units) Date Value 10/12/2024 Normal 05/29/2018 Normal Nitrites (no units) Date Value 10/12/2024 Negative 05/29/2018 Negative Leukest (no units) Date Value 05/29/2018 Negative Leuk Esterase (no units) Date Value 10/12/2024 Negative ALLERGIES Allergen Reactions Augmentin [Amoxicil* Mental Status Change Lightheadedness Seasonal Allergies Other: See Comments IMAGING: CT ABD/PEL 10/12/24 Kidneys: There are symmetric bilateral nephrograms. In the left upper renal pole there is a 5-6 mm calcification consistent with nephrolithiasis. MEDICATIONS: pantoprazole DR (PROTONIX) 40 mg tablet Take 1 tablet by mouth two times a day before meals. famotidine (PEPCID) 40 mg tablet Take 1 tablet by mouth daily at bedtime. omeprazole (PRILOSEC) 40 mg capsule Take 1 capsule by mouth once daily. sucralfate (CARAFATE) 1 gram tablet Take 1 tablet by mouth before meals and at bedtime. HISTORIES PAST MEDICAL HISTORY Diagnosis Date Acute sinusitis, [...] function is low normal. EF = 54 ? 5% (2D biplane) Baseline left ventricular diastolic [...] 09/29/2009 PAST SURGICAL HISTORY Procedure Laterality Date COLONOSCOPY 07/26/2012 DESTR NULYT PARAVTBRL LMB/SAC NRV [...] Grandfather Prostate Colon Cancer No Family History Social History Tobacco Use Smoking status: Never Smokeless tobacco: Never Substance Use Topics Alcohol use: No Drug use: No Comment: NO PAST USE REVIEW OF SYSTEMS GENERAL: No fever, chills, weight loss (more content not included)... Normal [facility] No Panel Informationon 11-23 IMPRESSION: Large volume gastroesophageal reflux. No hiatal hernia. Intact esophageal motility. Unremarkable small bowel follow-through. Patient experiences pain in the right lower quadrant during exam. No correlate on exam. Transcribed Using Voice Recognition Transcribe Date/Time: Nov 23 2024 2:38P Dictated by: SHANIKA GOFF DO This examination was interpreted and the report reviewed and electronically signed by: SHANIKA GOFF DO on Nov 23 2024 2:43PM [facility] RADIOLOGY No Panel InformationOrdered By: Ccf Provider on 11-23-2024 [facility] RF Gastrointestinal tract up per Views W barium contrast Brad 11-23-2024 * * *Final Report* * * DATE OF EXAM: Nov 23 2024 9:35AM SPX 5380 - XR UPPER GI SINGLE CONTRAST / PROCEDURE REASON: multiple diagnoses * * * * Physician Interpretation * * * * RESULT: UPPER GI AND SMALL BOWEL FOLLOW THROUGH CLINICAL INFORMATION: Early satiety, Epigastric pain, Nausea TECHNIQUE: A monophasic examination of the esophagus was performed utilizing low density barium. Contrast: ORAL: 155 (accession [id number]), 300 (accession [id number]) ml of EZPAQUE Fluoroscopy radiation summary: Fluoroscopy time: 1:02 (accession [id number]), 4:00 (accession [id number]) (min:sec). Air kerma: 30.9 mGy (accession [id number]), 71.4 mGy (accession [id number]). RESULT: UPPER GI: Caliber: Normal. Stricture, Ring, or Web: None. Motility: Normal. Hiatal Hernia: Absent. Gastroesophageal Reflux: Large volume, rapidly clearing (<30 seconds). Gastric Cardia: Normal. Barium Tablet: Passed easily without reproducing symptoms. Small Bowel Follow Through: Contrast material reached the colon by 60 minutes. The mucosal pattern and caliber of the small bowel are normal. The terminal ileum is unremarkable. Patient experiences tenderness in the right lower quadrant with palpation/spotting. No dilated bowel loops or other abnormality identified in this area. [facility] RADIOLOG[facility] Provider, [place] [facility] - 11/23/2024 * * *Final Report* * * DATE OF EXAM: Nov 23 2024 9:35AM SPX 5380 - XR UPPER GI SINGLE CONTRAST / PROCEDURE REASON: multiple diagnoses * * * * Physician Interpretation * * * * RESULT: UPPER GI AND SMALL BOWEL FOLLOW THROUGH CLINICAL INFORMATION: Early satiety, Epigastric pain, Nausea TECHNIQUE: A monophasic examination of the esophagus was performed utilizing low density barium. Contrast: ORAL: 155 (accession [id number]), 300 (accession [id number]) ml of EZPAQUE Fluoroscopy radiation summary: Fluoroscopy time: 1:02 (accession [id number]), 4:00 (accession [id number]) (min:sec). Air kerma: 30.9 mGy (accession [id number]), 71.4 mGy (accession [id number]). RESULT: UPPER GI: Caliber: Normal. Stricture, Ring, or Web: None. Motility: Normal. Hiatal Hernia: Absent. Gastroesophageal Reflux: Large volume, rapidly clearing (<30 seconds). Gastric Cardia: Normal. Barium Tablet: Passed easily without reproducing symptoms. Small Bowel Follow Through: Contrast material reached the colon by 60 minutes. The mucosal pattern and caliber of the small bowel are normal. The terminal ileum is unremarkable. Patient experiences tenderness in the right lower quadrant with palpation/spotting. No dilated bowel loops or other abnormality identified in this area. IMPRESSION IMPRESSION: Large volume gastroesophageal reflux. No hiatal hernia. Intact esophageal motility. Unremarkable small bowel follow-through. Patient experiences pain in the right lower quadrant during exam. No correlate on exam. Transcribed Using Voice Recognition Transcribe Date/Time: Nov 23 2024 2:38P Dictated by: SHANIKA GOFF DO This examination was interpreted and the report reviewed and electronically signed by: SHANIKA GOFF DO on Nov 23 2024 2:43PM EST [facility] Radiology Study observation (narrative) [facility] RF Small bowel Views W contr ast Brad 11-23-2024 * * *Final Report* * * DATE OF EXAM: Nov 23 2024 11:05AM SPX 5383 - XR SMALL BOWEL SERIES / PROCEDURE REASON: multiple diagnoses * * * * Physician Interpretation * * * * RESULT: UPPER GI AND SMALL BOWEL FOLLOW THROUGH CLINICAL INFORMATION: Early satiety, Epigastric pain, Nausea TECHNIQUE: A monophasic examination of the esophagus was performed utilizing low density barium. Contrast: ORAL: 155 (accession [id number]), 300 (accession [id number]) ml of EZPAQUE Fluoroscopy radiation summary: Fluoroscopy time: 1:02 (accession [id number]), 4:00 (accession [id number]) (min:sec). Air kerma: 30.9 mGy (accession [id number]), 71.4 mGy (accession [id number]). RESULT: UPPER GI: Caliber: Normal. Stricture, Ring, or Web: None. Motility: Normal. Hiatal Hernia: Absent. Gastroesophageal Reflux: Large volume, rapidly clearing (<30 seconds). Gastric Cardia: Normal. Barium Tablet: Passed easily without reproducing symptoms. Small Bowel Follow Through: Contrast material reached the colon by 60 minutes. The mucosal pattern and caliber of the small bowel are normal. The terminal ileum is unremarkable. Patient experiences tenderness in the right lower quadrant with palpation/spotting. No dilated bowel loops or other abnormality identified in this area. [facility] RADIOLOGY Provider, [facility] - 11/23/2024 * * *Final Report* * * DATE OF EXAM: Nov 23 2024 11:05AM SPX 5383 - XR SMALL BOWEL SERIES / PROCEDURE REASON: multiple diagnoses * * * * Physician Interpretation * * * * RESULT: UPPER GI AND SMALL BOWEL FOLLOW THROUGH CLINICAL INFORMATION: Early satiety, Epigastric pain, Nausea TECHNIQUE: A monophasic examination of the esophagus was performed utilizing low density barium. Contrast: ORAL: 155 (accession [id number]), 300 (accession [id number]) ml of EZPAQUE Fluoroscopy radiation summary: Fluoroscopy time: 1:02 (accession [id number]), 4:00 (accession [id number]) (min:sec). Air kerma: 30.9 mGy (accession [id number]), 71.4 mGy (accession [id number]). RESULT: UPPER GI: Caliber: Normal. Stricture, Ring, or Web: None. Motility: Normal. Hiatal Hernia: Absent. Gastroesophageal Reflux: Large volume, rapidly clearing (<30 seconds). Gastric Cardia: Normal. Barium Tablet: Passed easily without reproducing symptoms. Small Bowel Follow Through: Contrast material reached the colon by 60 minutes. The mucosal pattern and caliber of the small bowel are normal. The terminal ileum is unremarkable. Patient experiences tenderness in the right lower quadrant with palpation/spotting. No dilated bowel loops or other abnormality identified in this area. IMPRESSION IMPRESSION: Large volume gastroesophageal reflux. No hiatal hernia. Intact esophageal motility. Unremarkable small bowel follow-through. Patient experiences pain in the right lower quadrant during exam. No correlate on exam. Transcribed Using Voice Recognition Transcribe Date/Time: Nov 23 2024 2:38P Dictated by: SHANIKA GOFF DO This examination was interpreted and the report reviewed and electronically signed by: SHANIKA GOFF DO on Nov 23 2024 2:43PM EST [facility] Radiology Study observation (narrative) [facility] XR SMALL BOWEL SERIESon 04 XR SMALL BOWEL SERIES * * *Final Report* * * DATE OF EXAM: Nov 23 2024 11:05AM SPX 5383 - XR SMALL BOWEL SERIES / PROCEDURE REASON: multiple diagnoses * * * * Physician Interpretation * * * * RESULT: UPPER GI AND SMALL BOWEL FOLLOW THROUGH CLINICAL INFORMATION: Early satiety, Epigastric pain, Nausea TECHNIQUE: A monophasic examination of the esophagus was performed utilizing low density barium. Contrast: ORAL: 155 (accession [id number]), 300 (accession [id number]) ml of EZPAQUE Fluoroscopy radiation summary: Fluoroscopy time: 1:02 (accession [id number]), 4:00 (accession [id number]) (min:sec). Air kerma: 30.9 mGy (accession [id number]), 71.4 mGy (accession [id number]). RESULT: UPPER GI: Caliber: Normal. Stricture, Ring, or Web: None. Motility: Normal. Hiatal Hernia: Absent. Gastroesophageal Reflux: Large volume, rapidly clearing (<30 seconds). Gastric Cardia: Normal. Barium Tablet: Passed easily without reproducing symptoms. Small Bowel Follow Through: Contrast material reached the colon by 60 minutes. The mucosal pattern and caliber of the small bowel are normal. The terminal ileum is unremarkable. Patient experiences tenderness in the right lower quadrant with palpation/spotting. No dilated bowel loops or other abnormality identified in this area. IMPRESSION: Large volume gastroesophageal reflux. No hiatal hernia. Intact esophageal motility. Unremarkable small bowel follow-through. Patient experiences pain in the right lower quadrant during exam. No correlate on exam. Transcribed Using Voice Recognition Transcribe Date/Time: Nov 23 2024 2:38P Dictated by: SHANIKA GOFF DO This examination was interpreted and the report reviewed and electronically signed by: SHANIKA GOFF DO on Nov 23 2024 2:43PM EST [id number] [facility] XR UPPER GI SINGLE CONTRASTo n 11-23-2024 XR UPPER GI SINGLE CONTRAST * * *Final Report* * * DATE OF EXAM: Nov 23 2024 9:35AM SPX 5380 - XR UPPER GI SINGLE CONTRAST / PROCEDURE REASON: multiple diagnoses * * * * Physician Interpretation * * * * RESULT: UPPER GI AND SMALL BOWEL FOLLOW THROUGH CLINICAL INFORMATION: Early satiety, Epigastric pain, Nausea TECHNIQUE: A monophasic examination of the esophagus was performed utilizing low density barium. Contrast: ORAL: 155 (accession [id number]), 300 (accession [id number]) ml of EZPAQUE Fluoroscopy radiation summary: Fluoroscopy time: 1:02 (accession [id number]), 4:00 (accession [id number]) (min:sec). Air kerma: 30.9 mGy (accession [id number]), 71.4 mGy (accession [id number]). RESULT: UPPER GI: Caliber: Normal. Stricture, Ring, or Web: None. Motility: Normal. Hiatal Hernia: Absent. Gastroesophageal Reflux: Large volume, rapidly clearing (<30 seconds). Gastric Cardia: Normal. Barium Tablet: Passed easily without reproducing symptoms. Small Bowel Follow Through: Contrast material reached the colon by 60 minutes. The mucosal pattern and caliber of the small bowel are normal. The terminal ileum is unremarkable. Patient experiences tenderness in the right lower quadrant with palpation/spotting. No dilated bowel loops or other abnormality identified in this area. IMPRESSION: Large volume gastroesophageal reflux. No hiatal hernia. Intact esophageal motility. Unremarkable small bowel follow-through. Patient experiences pain in the right lower quadrant during exam. No correlate on exam. Transcribed Using Voice Recognition Transcribe Date/Time: Nov 23 2024 2:38P Dictated by: SHANIKA GOFF DO This examination was interpreted and the report reviewed and electronically signed by: SHANIKA GOFF DO on Nov 23 2024 2:43PM EST [id number] [facility] CNOVon 11-22-2024 CNOV Office Visit (GASTNO ) -------- GUILLERMO HERNANDEZ ([id number]) 1970 M Date Time Provider Department 11/22/24 1:25 PM ALCIRA ALATORRE During your visit today, we recorded the following information about you: Pulse Blood pressure Weight Height 78/minute 133/54 93.6 kg 1.93 m Alcira Alatorre PA-C 11/22/2024 1:13 PM Signed DEPARTMENT OF GASTROENTEROLOGY - NEW PATIENT/CONSULT REASON FOR VISIT Guillermo Hernandez is a 54 year old male who is scheduled ED consult epigastric pain HISTORY OF PRESENT ILLNESS Guillermo Hernandez is a 54 year old male who presents today for an evaluation of ED consult epigastric pain. Patient reports in October 2024 he was sick and he stopped up to vomit into a butler that he turned and he felt like something ripped Varsha crossed his epigastric upper abdominal region. He presented to the ED at that time and had a CT scan that did not reveal any acute abdominal pelvic process. He subsequently underwent upper endoscopy with Dr. Waters which noted LA grade A esophagitis. He was started on omeprazole and Carafate. This was 1 month ago. He has not noticed that symptoms have improved significantly. He reports when he eats now he feels he gets full very quickly and like something is pressing up against his abdomen. He also reports he feels short of breath and like he cannot breathe when he eats too much. He is eating soups and smaller meals. Pertinent Recent/Past Workup: EGD 10/2024 DR. Waters - Z-line regular, 42 cm from the incisors. - LA Grade A reflux esophagitis with no bleeding. - Granular, punctate white spotted mucosa in the esophagus. Biopsied - Normal stomach. Biopsied. - Normal duodenal bulb, first portion of the duodenum, second portion of the duodenum and major papilla. - Biopsies were taken with a cold forceps for evaluation of eosinophilic esophagitis. Recommendation: - Discharge patient to home (ambulatory). - Patient has a contact number available for emergencies. The signs and symptoms of potential delayed complications were discussed with the patient. Return to normal activities tomorrow. Written discharge instructions were provided to the patient. - No finding to explain patient's symptoms. - Await pathology results. - Resume previous diet. - Use Prilosec (omeprazole) 20 mg PO daily. - Continue present medications. - The findings and recommendations were discussed with the patient. A. Stomach, biopsy: - Antral and fundic mucosa with minimal chronic inflammation. - No evidence of H. pylori. B. Distal esophagus, biopsy: - Mildly reactive squamous mucosa; no evidence of eosinophilic esophagitis. C. Proximal esophagus, biopsy: - Mildly reactive squamous mucosa; no evidence of eosinophilic esophagitis. Last colonoscopy 09/2024 CT a/p w/ IV con IMPRESSION: 1. New hepatic hypodensities favor representing a cyst. 2. Nonobstructive left nephrolithiasis. 3. Tarlov cyst in the sacrum. This should be of no consequence. I have personally reviewed labs, current medication, allergies, PMH, PSH, family history and social history. Pertinent information has been listed above. Denies Family Hx CRC, IBD Denies Smoking, illicits, NSAIDs, etoh PAST MEDICAL HISTORY Diagnosis Date Acute sinusitis, [...] function is low normal. EF = 54 ? 5% (2D biplane) Baseline left ventricular diastolic [...] of neck 09/02/2010 Unspecified sinusitis (chronic) 09/29/2009 Allergies: Augmentin [Amoxicil* Mental Status Change Comment:Lightheadedness Seasonal Allergies Other: See Comments Current Outpatient Medications Medication Sig Dispense Refill omeprazole (PRILOSEC) 40 mg capsule Take 1 capsule by mouth once daily. 30 capsule 5 sucralfate (CARAFATE) 1 gram tablet Take 1 tablet by mouth before meals and at bedtime. 120 tablet 1 No current facility-administered medications for this visit. PAST SURGICAL HISTORY Procedure Laterality Date COLONOSCOPY 07/26/2012 DESTR NULYT PARAVTBRL LMB/SAC NRV 1 LVL 04/28/2010 DESTR NUL (more content not included)... [facility] ANES POSTPROC EVALon 025 ANES POSTPROC EVAL HNO ID: [id number] Author: LYUBOV KEITH APRN.CRNA Service: Anesthesiology Author Type: Nurse Tire Specialist Type: Anesthesia Postprocedure Evaluation Filed: 10/29/2024 13:26 Note Text: POST ANESTHESIA EVALUATION NOTE : 1970 Procedure Summary Date: 10/29/24 Room / Location: Ambulatory Surgery Anesthesia Start: 1302 Anesthesia Stop: 1314 Procedure: EGD DIAGNOSTIC Diagnosis: Epigastric pain (Epigastric abdominal pain) Scheduled Providers: Aurora Carmichael MD; Tere Jett RN; Laquita Mcnamara MA Responsible Provider: Lyubov Keith APRN.CRNA Anesthesia Type: MAC ASA Status: 1 Anesthesia Type: MAC Last Vitals Vitals Value Taken Time BP 117/71 10/29/24 1325 Temp 10/29/24 1326 Pulse 81 10/29/24 1325 Resp 15 10/29/24 1325 SpO2 97 % 10/29/24 1325 Post Anesthesia Patient Status Patient Evaluation: bedside. Anticipated Disposition: phase 2 then home. Neurological Status: aware and responsive. Pulmonary Status: breathing comfortably on room air Airway Control: returned to baseline unsupported. Cardiovascular Status: stable. Pain Management: clinically adequate Postoperative Hydration: acceptable. Intraoperative Events: no significant anesthesia events Post Operative Nausea/Vomiting Status: no significant post operative nausea or vomiting Recommendation: continue current plan of care. Anesthesia Observations No Documentation SIGNATURE: Lyubov Keith APRN.CRNA PATIENT NAME: Guillermo Hernandez DATE: October 29, 2024 TIME: 1:26 PM CSN: [id number] [facility] ANES PRE-OPon 10-29-2024 ANES PRE-OP HNO ID: [id number] Author: LYUBOV KEITH APRN.CRNA Service: Anesthesiology Author Type: Nurse Tire Specialist Type: Anesthesia Preprocedure Evaluation Filed: 10/29/2024 13:02 Note Text: ANESTHESIOLOGY DAY OF SURGERY NOTE : 1970 Procedure Information Date/Time: 10/29/24 1300 Scheduled providers: Aurora Carmichael MD; Tere Jett RN; Laquita Mcnamara MA Procedure: EGD DIAGNOSTIC Location: Ambulatory Surgery Estimated body mass index is 25.44 kg/m? as calculated from the following: Height as of 10/23/24: 193 cm (6' 4 ). Weight as of 10/23/24: 94.8 kg (208 lb 15.9 oz). Most recent hematocrit and potassium results: Hematocrit 50.1 10/12/2024 Potassium 4.8 10/12/2024 Relevant Problems No relevant active problems CHAY- does not have per pt GERD I - PHYSICAL EVALUATION AIRWAY Patient intubated: No. Tracheostomy tube not present Mallampati: II. TM distance: >3 FB. Neck ROM: full ROM without neurological symptoms. Mouth opening: adequate. DENTAL Dental findings: teeth intact. Additional exam findings: no II - ANESTHESIA PLAN ASA Score: 1 Anesthetic Plan: MAC The patient is not a current smoker. NPO Status: adequate Beta Hui Monitoring Plan Monitoring plan: standard ASA. Post Procedure Analgesic Plan Postoperative analgesic plan: per surgical service. Informed Consent Anesthetic risks, benefits, alternatives, personnel and consent discussed: yes. Patient / Responsible Democrat agrees to proceed: yes Patient / Surrogate agrees to blood products: blood products not planned DNR status not reviewed with patient and/or family prior to surgery. Significant changes in the patient condition since the History and Physical, not otherwise documented in primary service progress note: no. Potential Anesthesia issues that may suggest increased risk of complications or contraindication to planned procedure: none. No vitals data found for the desired time range. Outpatient Medications as of 10/29/2024 Medication Sig omeprazole (PRILOSEC) 40 mg capsule Take 1 capsule by mouth once daily. sucralfate (CARAFATE) 1 gram tablet Take 1 tablet by mouth before meals and at bedtime. No current facility-administered medications on file as of 10/29/2024. I have interviewed and examined the patient. I have reviewed the medical record and/or the pre-anesthesia evaluation, pertinent labs, and test results. This contains updated information obtained within 48 hours of Surgery/Procedure. SIGNATURE: Lyubov Keith APRN.CRNA PATIENT NAME: Guillermo Hernandez DATE: October 29, 2024 TIME: 8:26 AM CSN: [id number] [facility] EGD Study observation Narrat darline 10-29-[address] [facility] Gastroenterology Gastrointestinal Endoscopy Patient Name: Guillermo Hernandez Procedure Date: 10/29/2024 1:02 PM Date of : 1970 Admit Type: Outpatient Age: 54 Room: [facility] 1 Gender: Male Note Status: Finalized Attending MD: Aurora Carmichael MD, [id number] Procedure: Upper GI endoscopy Indications: Epigastric abdominal pain, Oral phase dysphagia, Chest pain (non cardiac), Chronic cough, Weight loss Providers: Aurora Carmichael MD Patient Profile: This is a 54 year old male. Refer to note in patient chart for documentation of history and physical. Referring Physician: Rei Ingram DO (Referring MD) Medicines: Monitored Anesthesia Care Complications: No immediate complications. Requesting Provider: Procedure: Pre-Anesthesia Assessment: - Prior to the procedure, a History and Physical was performed, and patient medications and allergies were reviewed. The patient's tolerance of previous anesthesia was also reviewed. The risks and benefits of the procedure and the sedation options and risks were discussed with the patient. All questions were answered, and informed consent was obtained. Prior Anticoagulants: The patient has taken no anticoagulant or antiplatelet agents. ASA Grade Assessment: II - A patient with mild systemic disease. After reviewing the risks and benefits, the patient was deemed in satisfactory condition to undergo the procedure. - Prior to the procedure, a History and Physical was performed, and patient medications, allergies and sensitivities were reviewed. The patient's tolerance of previous anesthesia was reviewed. - The risks and benefits of the procedure and the sedation options and risks were discussed with the patient. All questions were answered and informed consent was obtained. - Patient identification and proposed procedure were verified prior to the procedure by the physician and the nurse. The procedure was verified in the pre-procedure area. After obtaining informed consent, the endoscope was passed under direct vision. Throughout the procedure, the patient's blood pressure, pulse, and oxygen saturations were monitored continuously. The Endoscope was introduced through the mouth, and advanced to the second part of duodenum. I was present and participated during the entire procedure, including non-knight portions, and during the administration and monitoring of Moderate Sedation. The upper GI endoscopy was accomplished without difficulty. The patient tolerated the procedure well. Moderate Sedation: MAC anesthesia was administered by the anesthesia team. Findings: The Z-line was regular and was found 42 cm from the incisors. LA Grade A (one or more mucosal breaks less than 5 mm, not extending between tops of 2 mucosal folds) esophagitis with no bleeding was found at the gastroesophageal junction. Scattered mild mucosal changes characterized by granularity and punctated white spots were found in the entire esophagus. Biopsies were obtained from the proximal and distal esophagus with cold forceps for histology of suspected eosinophilic esophagitis. The entire examined stomach was normal. Biopsies were taken with a cold forceps for Helicobacter pylori testing. The duodenal bulb, first portion of the duodenum, second portion of the duodenum and major papilla were normal. Impression: - Z-line regular, 42 cm from the incisors. - LA Grade A reflux esophagitis with no bleeding. - Granular, punctate white spotted mucosa in the esophagus. Biopsied - Normal stomach. Biopsied. - Normal duodenal bulb, first portion of the duodenum, second portion of the duodenum and major papilla. (more content not included)... [facility] Radiology Study observation (narrative) [facility] HISTORY PHYSICALon HISTORY PHYSICAL HNO ID: [id number] Author: AURORA CARMICHAEL MD Service: Gastroenterology Author Type: Physician Type: H&P Filed: 10/29/2024 12:31 Note Text: ENDO HISTORY AND PHYSICAL EXAMINATION SHORT FORM EVALUATION DATE: 10/29/2024 EVALUATION TIME: 12:31 PM CHIEF COMPLAINT: Abdominal Pain HPI: This is a 54 year old male who presents with Abdominal Pain and unintentional weight loss. PAST MEDICAL HISTORY: PAST MEDICAL HISTORY Diagnosis Date Acute sinusitis, [...] function is low normal. EF = 54 ? 5% (2D biplane) Baseline left ventricular diastolic [...] 09/02/2010 Unspecified sinusitis (chronic) 09/29/2009 PAST SURGICAL HISTORY: PAST SURGICAL HISTORY Procedure Laterality Date COLONOSCOPY 07/26/12 DESTR NULYT PARAVTBRL LMB/SAC NRV 1 LVL 04/28/10 DESTR NULYT PARAVTBRL LMB/SAC NRV 1 LVL 05/05/10 DESTR NULYT PARAVTBRL LMB/SAC NRV EA LVL 05/05/10 EGD 07/26/12 LAMINECTOMY W/O FFD 08/16 VERT SEG LUMBAR 2002 PAST SURGICAL HISTORY OF 2007 metal removed from the knee - right PAST SURGICAL HISTORY OF 2009 UP SOCIAL HISTORY: Social History Tobacco Use Smoking status: Never Smokeless tobacco: Never Substance Use Topics Alcohol use: No Drug use: No Comment: NO PAST USE FAMILY HISTORY: FAMILY HISTORY Problem Relation Age of Onset Cancer Father non Hodgkin's lymphoma Heart Paternal Grandmother pacemaker Heart Paternal Grandfather heart surgery Cancer Paternal Grandfather Prostate Thyroid Mother cancer dx at age 60 Arthritis Mother Hypertension Mother ALLERGIES: ALLERGIES Allergen Reactions Augmentin [Amoxicil* Mental Status Change Lightheadedness Seasonal Allergies Other: See Comments MEDICATIONS: Prior to Admission Medications: omeprazole (PRILOSEC) 40 mg capsule Take 1 capsule by mouth once daily. sucralfate (CARAFATE) 1 gram tablet Take 1 tablet by mouth before meals and at bedtime. No current facility-administered medications for this encounter. REVIEW OF SYSTEMS: Respiratory: Negative for smoking, dyspnea, cough, asthma, bronchitis, emphysema Cardiovascular: Negative for chest pain, leg swelling or palpitations. GI: See HPI PHYSICAL EXAM: No data found. General Appearance: well appearing, alert, in no acute distress Lungs: Lungs clear to auscultation. No wheezing, rhonchi, rales. Heart: RRR without murmur, gallop, or rubs. No ectopy PLAN OF TREATMENT: Esophagogastroduodenosco py (EGD) SIGNATURE: Aurora Carmichael MD PATIENT NAME: Guillermo Hernandez DATE: October 29, 2024 TIME: 12:31 PM [facility] NURSING PROGon 10-29-2024 NURSING PROG HNO ID: [id number] Author: JANELL REYES RN Service: ? Author Type: Registered Nurse Type: Nursing Progress Note Filed: 10/29/2024 13:17 Note Text: POST OP LEARNING RESPONSE INSTRUCTION PROVIDED TO: Patient METHOD OF INSTRUCTION: Individual instruction Written instruction/Handouts Verbal instruction PATIENT / FAMILY RESPONSE: Information received as demonstrated by interest and questions FOLLOW-UP PLAN: Patient instructed to call with any further issues Recommend - Recommend continued instruction and follow up as directed SUPPLEMENTAL MATERIAL: None REFERRAL (RECOMMENDATION): None Electronically Signed By: Janell Reyes RN In Department: AMBULATORY SURGERY [facility] NURSING PROG HNO ID: [id number] Author: MACI NASH RN Service: ? Author Type: Registered Nurse Type: Nursing Progress Note Filed: 10/29/2024 12:34 Note Text: PRE OP LEARNING ASSESSMENT PROCEDURE/SURGERY: GI PROCEDURES: EGD READINESS TO LEARN COGNITIVE ABILITY: Alert and oriented MOTIVATION TO LEARN: Interested FAMILY SUPPORT: Unable to assess - Family not present PATIENT LEARNS BEST BY: Written Instruction - Hand-outs Verbal Instruction FACTORS AFFECTING LEARNING: None PHYSICAL LIMITATIONS AFFECTING LEARNING: None Electronically Signed By: Maci Nash RN In Department: AMBULATORY SURGERY [facility] Pathology biopsy report Arnie (Tiss)on 10-29-2024 AP DISCLAIMER [facility] Comment on above: Order Comment: Speci men Type: TISSUE SPECIMENOrdering Facility: [facility] Address: [address] [place] [address] Result Comment: Tim edmondson Developed Test (LDT) Disclaimer: Performance characteristics of immunohistochemical, immunofluorescent, and chromogenic in-situ hybridization tests have been determined by the performing laboratory within [facility]'s [facility] Pathology and Laboratory Medicine Department ([facility], [facility], [facility], [facility], [facility], [facility], or [facility]) in a manner consistent with CLIA requirements. One or more of these tests may not have been cleared or approved by the FDA. [facility] is regulated under CLIA as qualified to perform high-complexity testing. These tests are used for clinical purposes. These should not be regarded as investigational or for research. Positive and negative controls stain appropriately. Performed By: #### 6 6121-5 ####[facility]ORATORYIA [id number] [address] LABCLIA [id number] [place] [address] [place] CASE REPORT [facility] Comment on above: Order Comment: Speci men Type: TISSUE SPECIMENOrdering Facility: [facility] Address: [address] [place] [address] Result Comment: Surg [facility] Pathology Report Case: [id number] Authorizing Provider: Aurora Carmichael MD Collected: 10/29/2024 01:07 PM Ordering Location: Ambulatory Surgery Received: 10/29/2024 08:37 PM Pathologist: Craig Arguello MD Specimens: A) - Stomach, Biopsy B) - Esophagus, Distal, Biopsy, granular tissue r/o eoe C) - Esophagus, Proximal, Biopsy, granular tissue r/o eoe Performed By: #### 6 6121-5 ####[facility] [id number] [address] LABCLIA [id number] [address] [place] FINAL DIAGNOSIS [facility] Comment on above: Order Comment: Leonorai jazzmine Type: TISSUE SPECIMENOrdering Facility: [facility] Address: [address] [place] [address] Result Comment: A. S tomach, biopsy: - Antral and fundic mucosa with minimal chronic inflammation. - No evidence of H. pylori. B. Distal esophagus, biopsy: - Mildly reactive squamous mucosa; no evidence of eosinophilic esophagitis. C. Proximal esophagus, biopsy: - Mildly reactive squamous mucosa; no evidence of eosinophilic esophagitis. at 1348 EDT Performed By: #### 6 6121-5 ####[facility] LABORATORYCLIA [id number] [address] LABCLIA [id number] [address] [place] FINAL PERFORMING LAB [facility] Comment on above: Order Comment: Speci men Type: TISSUE SPECIMENOrdering Facility: [facility] Address: [address] [place] [address] Result Comment: Diag nostic interpretation performed at: [facility], [address] [place] [address] CLIA# [id number] Engineer And Geologist: Adenike Dove MD Performed By: #### 6 6121-5 ####[facility] LABORATORYCLIA [id number] [address] LABCLIA [id number] [address] GROSS DESCRIPTION [facility] Comment on above: Order Comment: Speci men Type: TISSUE SPECIMENOrdering Facility: [facility] Address: [address] [place] [address] Result Comment: A. S tomach, Biopsy Received in formalin are multiple pieces of rodrigues, soft tissue aggregating to 1.3 x 0.5 x 0.1 cm. Totally submitted in two cassettes. B. Esophagus, Distal, Biopsy Received in formalin are two pieces of rodrigues-white, soft tissue aggregating to 0.9 x 0.2 x 0.1 cm. Totally submitted in one cassette. C. Esophagus, Proximal, Biopsy Received in formalin is one piece of rodrigues-white, soft tissue measuring 0.4 x 0.2 x 0.1 cm. Totally submitted in one cassette. DB October 29, 2024 9:29 PM Gross examination performed at [facility], [address] [place] [address] Performed By: #### 6 6121-5 ####[facility]ORATORYCLIA [id number] [place] [id number] [facility] LABCLIA [id number] [facility] [address] Upper GI endoscopyon 025 Upper GI endoscopy [facility] Gastroenterology Gastrointestinal Endoscopy Patient Name: Guillermo Hernandez Procedure Date: 10/29/2024 1:02 PM Date of : 1970 Admit Type: Outpatient Age: 54 Room: [place] [address] Gender: Male Note Status: Finalized Attending MD: Aurora Carmichael MD, [id number] Procedure: Upper GI endoscopy Indications: Epigastric abdominal pain, Oral phase dysphagia, Chest pain (non cardiac), Chronic cough, Weight loss Providers: Aurora Carmichael MD Patient Profile: This is a 54 year old male. Refer to note in patient chart for documentation of history and physical. Referring Physician: Rei Ingram DO (Referring MD) Medicines: Monitored Anesthesia Care Complications: No immediate complications. Requesting Provider: Procedure: Pre-Anesthesia Assessment: - Prior to the procedure, a History and Physical was performed, and patient medications and allergies were reviewed. The patient's tolerance of previous anesthesia was also reviewed. The risks and benefits of the procedure and the sedation options and risks were discussed with the patient. All questions were answered, and informed consent was obtained. Prior Anticoagulants: The patient has taken no anticoagulant or antiplatelet agents. ASA Grade Assessment: II - A patient with mild systemic disease. After reviewing the risks and benefits, the patient was deemed in satisfactory condition to undergo the procedure. - Prior to the procedure, a History and Physical was performed, and patient medications, allergies and sensitivities were reviewed. The patient's tolerance of previous anesthesia was reviewed. - The risks and benefits of the procedure and the sedation options and risks were discussed with the patient. All questions were answered and informed consent was obtained. - Patient identification and proposed procedure were verified prior to the procedure by the physician and the nurse. The procedure was verified in the pre-procedure area. After obtaining informed consent, the endoscope was passed under direct vision. Throughout the procedure, the patient's blood pressure, pulse, and oxygen saturations were monitored continuously. The Endoscope was introduced through the mouth, and advanced to the second part of duodenum. I was present and participated during the entire procedure, including non-knight portions, and during the administration and monitoring of Moderate Sedation. The upper GI endoscopy was accomplished without difficulty. The patient tolerated the procedure well. Moderate Sedation: MAC anesthesia was administered by the anesthesia team. Findings: The Z-line was regular and was found 42 cm from the incisors. LA Grade A (one or more mucosal breaks less than 5 mm, not extending between tops of 2 mucosal folds) esophagitis with no bleeding was found at the gastroesophageal junction. Scattered mild mucosal changes characterized by granularity and punctated white spots were found in the entire esophagus. Biopsies were obtained from the proximal and distal esophagus with cold forceps for histology of suspected eosinophilic esophagitis. The entire examined stomach was normal. Biopsies were taken with a cold forceps for Helicobacter pylori testing. The duodenal bulb, first portion of the duodenum, second portion of the duodenum and major papilla were normal. Impression: - Z-line regular, 42 cm from the incisors. - LA Grade A reflux esophagitis with no bleeding. - Granular, punctate white spotted mucosa in the esophagus. Biopsied - Normal stomach. Biopsied. - Normal duodenal bulb, first portion of the duodenum, second portion of the duodenum and major papilla. - Biopsies were taken with a cold forceps for evaluation of eosinophilic esophagitis. Recommendation: - Discharge patient to home (ambulatory). - Patient has a contact number available for emergencies. The signs and symptoms of potential delayed complications were discussed with the patient. Return to normal activities tomorrow. Written discharge instructions were provided to the patient. - No finding to explain patient's symptoms. - Await pathology results. - Resume previous diet. - Use Prilosec (omeprazole) 20 mg PO daily. - Continue present medications. - The findings and recommendations were discussed with the patient. Procedure Code(s): --- Professional --- 55369, Esophagogastroduodenosco py, flexible, transoral; with biopsy, single or multiple Diagnosis Code(s): --- Professional --- K21.00, Gastro-esophageal reflux disease with esophagitis, without bleeding K22.89, Other specified disease of esophagus R10.13, Epigastric pain R13.11, Dysphagia, oral phase R07.89, Other chest pain R05.3, Chronic cough R63.4, Abnormal weight loss CPT copyright 2020 [employer]. All rights reserved. The codes documented i (more content not included)... [facility] CNOVon 10-23-2024 CNOV Office Visit ([facility] ) -------- GUILLERMO HERNANDEZ ([id number]) 1970 M Date Time Provider Department 10/23/24 1:15 PM REI INGRAM [facility] During your visit today, we recorded the following information about you: Pulse Blood pressure Weight Height 75/minute 127/73 94.8 kg 1.93 m Rei Ingram DO 10/23/2024 2:01 PM Signed This note was created using NoteWriter. Subjective Guillermo Hernandez is a 54 year old male. HPI Patient has been seen since 2019 Seen in ED end of September for upper abdominal pain and shortness of breath CT abdomen pelvis and chest no acute process. Nonobstructive left kidney stone. Hepatic densities suspect cyst. Small hiatal hernia No improvement of sx with GI cocktail. He states when he eats, he has severe abdominal pain since September. If he eats, he gets a lump in his throat, making it difficulty for him to eat. He is able to tolerate a small amount of eggs, ice cream, and liquids. He had an episode of vomiting on Oct.02. Then developed abdominal pain and inability to have a bowel movement. He has lost 12 lbs in the past 3 weeks because he has stopped eating. He is able to have a bowel movement. He is waking up in the middle of the night catching his breath if he eats too close to bedtime. Has upcoming appointment with GI next month. He is complaining of SOB with walking since vomiting on . Eating escalates it. He gets chest pain only with eating. Nonobstructing kidney stone. Reports no flank pain or difficulty with urination. Review of Systems All other systems reviewed and are negative. Objective There were no vitals taken for this visit. Physical Exam Constitutional: General: He is not in acute distress. Appearance: Normal appearance. HENT: Head: Normocephalic and atraumatic. Cardiovascular: Rate and Rhythm: Normal rate and regular rhythm. Heart sounds: Normal heart sounds. Pulmonary: Effort: Pulmonary effort is normal. Breath sounds: Normal breath sounds. Abdominal: General: Bowel sounds are normal. There is no distension. Palpations: Abdomen is soft. Tenderness: There is abdominal tenderness (epigastric). Musculoskeletal: Right lower leg: No edema. Left lower leg: No edema. Skin: General: Skin is warm and dry. Capillary Refill: Capillary refill takes less than 2 seconds. Neurological: Mental Status: He is alert and oriented to person, place, and time. Psychiatric: Mood and Affect: Mood normal. Behavior: Behavior normal. Thought Content: Thought content normal. Judgment: Judgment normal. Assessment and Plan ASSESSMENT/PLAN: 1. Epigastric pain - ICD9: 789.06, ICD10: R10.13 (primary diagnosis) CT showing small hiatal hernia. Pt has lost 12 lbs in 2 weeks due to decreased appetite secondary to pain and SOB associated with eating. Start Prilosec and Carafate. EGD for further evaluation. Pt has GI follow up scheduled in November. - EGD DIAGNOSTIC - OMEPRAZOLE 40 MG CAPSULE,DELAYED RELEASE - SUCRALFATE 1 GRAM TABLET 2. SOB (shortness of breath) - ICD9: 786.05, ICD10: R06.02 Cardiac testing unrevealing in ED. Pt continues to have SOB with exertion, but also exacerbated with eating. EKG in office today to confirm no active cardiac etiology. - ECG COMPLETE Lyubov Figueroa PA-C Attending Note I have personally performed a face to face assessment of the patient and have reviewed the JAYDEN note. I performed a substantive portion of the visit including all aspects of the following. My knight findings include: Medical Decision Making reviewed and confirmed with patient. Management plan as above. Other additions or changes: As edited Signature: Rei Ingram DO Date: 10/23/2024 Time: 1:59 PM Referring Provider: SHEFALI SCHAEFER [[id number]] Allergies As of Date: 10/23/2024 Noted Allergy Reaction AUGMENTIN (AMOXICILLIN-POT CLAVUL*07/16/2010 1 - Mental Status Change Comments: Lightheadedness SEASONAL ALLERGIES 07/08/2010 14 - Other: See Comments Date Reviewed: 10/23/2024 Reviewed by: Kary Dumont MA - Fully Assessed Reason for Visit: ED Follow-up [821] Primary Visit Diagnosis:Epigastric pain [R10.13] Other Visit Diagnosis:SOB (shortness of breath) [R06.02] Order(s):EGD DIAGNOSTIC [GI9] Order #: [id number] FUTURE omeprazole (PRILOSEC) 40 mg capsuleTake 1 capsule by mouth once daily.Disp: 30 capsuleRfl: 5 sucralfate (CARAFATE) 1 gram tabletTake 1 tablet by mouth before meals and at bedtime.Disp: 120 tabletRfl: 1 ECG COMPLETE [ECG01] Order #: [id number] ECG COMPLETE [ECG01] Order #: [id number]. #:[id number] Prescriptions as of 10/23/2024 - omeprazole (PRILOSEC) 40 mg capsule Take 1 capsule by mouth once daily. - sucralfate (CARAFATE) 1 gram tablet Take 1 tablet by mouth before meals and at bedtime. Meds Comments as of 11/10/2016: none Problem List As Of Date (more content not included)... [facility] ECG COMPLETEon 10-23-2024 ECG COMPLETE Ventricular Rate : 7 9 BPM Atrial Rate : 79 BPM P-R Interval : 128 ms QRS Duration : 88 ms Q-T Interval : 390 ms QTC Calculation(Bazett) : 447 ms Calculated P Nova : 72 degrees Calculated R Nova : 46 degrees Calculated T Nova : 45 degrees NORMAL SINUS RHYTHM POSSIBLE LEFT ATRIAL ENLARGEMENT BORDERLINE ECG Confirmed by Garcia MATHEW RAVISANKAR ([id number]) on 10/23/2024 7:40:30 PM NAME : LATRICE HERNANDEZIC PID : [id number] : 1970 Gender : Male Race : ORD : [id number] Procedure Date : Oct 23 2024 13:32:54 Edit Date : Oct 23 2024 19:40:33 Diagnosis: NORMAL SINUS RHYTHM POSSIBLE LEFT ATRIAL ENLARGEMENT BORDERLINE ECG Confirmed by Garcia MATHEW RAVISANKAR ([id number]) on 10/23/2024 7:40:30 PM Test Reason : SOB Location : 515 : SUPAM Overread By : Garcia MATHEW RAVISANKAR Edited By : Garcia MATHEW RAVISANKAR Referred By : AUGUSTO SCHAEFERLISE Acquired by : Emre CORREA [facility] CBC panel Auto (Bld)on 10-12 Erythrocyte distribution width (RBC) [Ratio] 12.1 % Normal 11.5-15.0 [facility] Comment on above: Order Comment: Speci men Type: BLOOD SPECIMENOrdering Facility: [facility] Address: [address] [place] [address] Performed By: #### 9 5941-1 #### [facility] [place] [id number] STATES OF [facility] Hematocrit (Bld) [Volume fraction] 50.1 % Normal 39.0-51.0 [facility] Comment on above: Order Comment: Leonorai men Type: BLOOD SPECIMENOrdering Facility: [facility] Address: [address] [place] [address] Performed By: #### 9 5941-1 #### [facility] CLIA [id number] [facility] [facility] [place] [address] [place] Hemoglobin (Bld) [Mass/Vol] 17.0 g/dL Normal 13.0-17.0 [facility] Comment on above: Order Comment: Speci men Type: BLOOD SPECIMENOrdering Facility: [facility] Address: [address] [place] [address] Performed By: #### 9 5941-1 #### [facility] CLIA [id number] [place] [address] [place] MCH (RBC) [Entitic mass] 30.5 pg Normal 26.0-34.0 [facility] Comment on above: Order Comment: Speci men Type: BLOOD SPECIMENOrdering Facility: [facility] Address: [address] [place] [address] Performed By: #### 9 5941-1 #### [facility] CLIA [id number] [place], [place] [id number] [place] [address] [place] MCHC (RBC) [Mass/Vol] 33.9 g/dL Normal 30.5-36.0 [facility] Comment on above: Order Comment: Speci men Type: BLOOD SPECIMENOrdering Facility: [facility] Address: [address] [place] [address] Performed By: #### 9 5941-1 #### [facility] CLIA [id number] [address] [place] [address] [place] MCV (RBC) [Entitic vol] 89.8 fL Normal 80.0-100.0 [facility] Comment on above: Order Comment: Speci men Type: BLOOD SPECIMENOrdering Facility: [facility] Address: [address] [place] [address] Performed By: #### 9 5941-1 #### [facility] CLIA [id number] [address] [place] [address] [place] Nucleated RBC (Bld) [#/Vol] 10*3/uL Normal <0.01 [facility] Comment on above: Order Comment: Speci men Type: BLOOD SPECIMENOrdering Facility: [facility] Address: [address] [place] [address] Performed By: #### 9 5941-1 #### [facility] CLIA [id number] [address] [place] [address] [place] Platelet mean volume (Bld) [Entitic vol] 10.8 fL Normal 9.0-12.7 [facility] Comment on above: Order Comment: Speci men Type: BLOOD SPECIMENOrdering Facility: [facility] Address: [address] [place] [address] Performed By: #### 9 5941-1 #### [facility] CLIA [id number] [address] [place] [address] [place] Platelets (Bld) [#/Vol] 178 10*3/uL Normal 150-400 [facility] Comment on above: Order Comment: Speci men Type: BLOOD SPECIMENOrdering Facility: [facility] Address: [address] [place] [address] Performed By: #### 9 5941-1 #### [facility] CLIA [id number] [address] [place] [address] [place] RBC (Bld) [#/Vol] 5.58 10*6/uL Normal 4.20-6.00 [facility] Comment on above: Order Comment: Speci men Type: BLOOD SPECIMENOrdering Facility: [facility] Address: [address] [place] [address] Performed By: #### 9 5941-1 #### [facility] CLIA [id number] [address] [place] [address] [place] WBC (Bld) [#/Vol] 5.04 10*3/uL Normal 3.70-11.00 [facility] Comment on above: Order Comment: Speci men Type: BLOOD SPECIMENOrdering Facility: [facility] Address: [address] [place] [address] Performed By: #### 9 5941-1 #### [facility] CLIA [id number] [address] [place] CT ABD/PEL W IVCONon 025 CT ABD/PEL W IVCON * * *Final Report* * * DATE OF EXAM: Oct 12 2024 12:29PM [facility] 0530 - CT ABD/PEL W IVCON / PROCEDURE REASON: Abdominal pain, acute, nonlocalized * * * * Physician Interpretation * * * * EXAMINATION: CT ABDOMEN AND PELVIS WITH IV CONTRAST CLINICAL HISTORY: Abdominal pain TECHNIQUE: CT of the abdomen and pelvis was performed using standard technique, scanning from just above the dome of the diaphragm to the symphysis pubis. MQ: CTAP_3 Contrast: IV: 100 ml of Omnipaque 350 CT Radiation dose: Integrated Dose-length product (DLP) for this visit = 920 mGy*cm. CT Dose Reduction Employed: Automated exposure control(AEC) and iterative recon COMPARISON: 10/20/2016 RESULT: Liver: There is a new anterior low-attenuation focus measuring approximately 8 mm favor representing a small cyst. Biliary: The gallbladder is within normal limits for the modality. Spleen: No mass. No splenomegaly. Pancreas: No mass or duct dilation. Adrenals: No mass. Kidneys: There are symmetric bilateral nephrograms. In the left upper renal pole there is a 5-6 mm calcification consistent with nephrolithiasis. GI tract: There is a small sliding hiatal hernia. There is a stable or evette at the base of the cecum probably post appendectomy. There is mild diverticulosis however there is no diverticulitis identified. Lymph nodes: No abdominal or pelvic lymphadenopathy. Mesentery/Peritoneum: No ascites or mass. Retroperitoneum: No mass. Vasculature: - Abdominal aorta and iliac arteries: No aneurysm. - Celiac and SMA: Patent origins - Portal venous system (SMV, splenic vein, portal vein and branches): Patent. - Hepatic veins: Patent. Pelvis: No mass, ascites or fluid collection. Bones/Soft Tissues: There are degenerative changes in the lower lumbar spine. There are Tarlov's cysts in the sacrum with associated bone remodeling. The patient is status post L4 and L5 laminectomies. Similar findings were identified previously. Lower thorax: A chest CT performed will be reported separately. Localizer images: No additional findings. IMPRESSION: 1. New hepatic hypodensities favor representing a cyst. 2. Nonobstructive left nephrolithiasis. 3. Tarlov cyst in the sacrum. This should be of no consequence. Radioisotope Technologist: ARNALDO Transcribe Date/Time: Oct 12 2024 1:18P Dictated by : ABIOLA WHITE MD This examination was interpreted and the report reviewed and electronically signed by: ABIOLA WHITE MD on Oct 12 2024 1:28PM EST [id number] Normal [facility] CTA CHEST (NON GATED) W IVCO N PEon 10-12-2024 CTA CHEST (NON GATED) W IVCON PE * * *Final Report* * * DATE OF EXAM: Oct 12 2024 12:29PM [facility] 0564 - CTA CHEST (NON GATED) W IVCON PE / PROCEDURE REASON: Pulmonary embolism (PE) suspected, high prob * * * * Physician Interpretation * * * * EXAMINATION: CHEST CTA (NON GATED) WITH CONTRAST (PULMONARY EMBOLISM PROTOCOL) Clinical History: Pulmonary embolism Technique: Spiral CT acquisition of the chest from the thoracic inlet to the upper abdomen following IV contrast. Axial 1 and 3 mm thick slices plus coronal and sagittal reformatted images. MQ: CTCP_5 Contrast: 100 mL Omnipaque [address] Radiation dose: Integrated Dose-length product (DLP) for this visit = mGy*cm CT Dose Reduction Employed: Automated exposure control(AEC) and iterative recon CTA: Post-processed images (Maximum intensity Projection (MIP), Volume-rendered (VR), or Surface shaded display images (SSD) were created, reviewed and archived. Comparison: No relevant prior studies available. RESULT: Limitations: Suboptimal study due to respiratory motion with or without non-ideal pulmonary arterial enhancement. Evaluation for thromboembolic disease: - Right heart chambers: No thromboembolic disease. - Main pulmonary arteries: No thromboembolic disease. - Lobar pulmonary arteries: No thromboembolic disease. - Segmental pulmonary arteries: No definite thromboembolic disease. - Subsegmental pulmonary arteries: No definite thromboembolic disease. - Additional pulmonary artery findings: The main pulmonary artery is normal in caliber. Lines, tubes, and devices: None. Lung parenchyma and airways: No consolidation. No suspicious pulmonary nodule. The central airways are patent. Pleural space: No pleural effusion. No pleural thickening. Lower neck, lymph nodes, and mediastinum: There is no axillary, mediastinal or hilar lymphadenopathy identified. Heart, pericardium, and thoracic vessels: The thoracic aorta is normal in caliber. The cardiac chambers are normal in size. No coronary artery atherosclerotic calcifications are noted, although the study is not optimized for coronary assessment. No pericardial effusion or thickening. Bones and soft tissues: There are no aggressive osseous lesions. The chest wall is unremarkable. Upper abdomen: A CT abdomen and pelvis will be dictated separately. Localizer images: No additional findings. IMPRESSION: No central pulmonary embolism identified. Radioisotope Technologist: ARNALDO Transcribe Date/Time: Oct 12 2024 1:07P Dictated by : ABIOLA WHITE MD This examination was interpreted and the report reviewed and electronically signed by: ABIOLA WHITE MD on Oct 12 2024 1:28PM EST [id number] Normal [facility] Comprehensive metabolic 2000 panelon 10-12-2024 Albumin [Mass/Vol] 4.5 g/dL Normal 3.9-4.9 [facility] Comment on above: Order Comment: Speci men Type: BLOOD SPECIMEN Ordering Facility: [facility] Address: [address] [place] [address] Performed By: #### 3 040-3, 55462-4 #### [facility] CLIA [id number] [place] [address] [place] ALP [Catalytic activity/Vol] 140 U/L High 38-113 [facility] Comment on above: Order Comment: Speci men Type: BLOOD SPECIMEN Ordering Facility: [facility] Address: [address] [place] [address] Performed By: #### 3 040-3, 29296-3 #### [facility] CLIA [id number] [address] [place] [address] [place] ALT [Catalytic activity/Vol] 24 U/L Normal 10-54 [facility] Comment on above: Order Comment: Speci men Type: BLOOD SPECIMEN Ordering Facility: [facility] Address: [address] [place] [address] Performed By: #### 3 040-3, 21556-7 #### [facility] CLIA [id number] [place] [address] [place] Anion gap [Moles/Vol] 9 mmol/L Normal 8-15 [facility] Comment on above: Order Comment: Speci men Type: BLOOD SPECIMEN Ordering Facility: [facility] Address: [address] [place] [address] Performed By: #### 3 040-3, 21430-6 #### [facility] CLIA [id number] [place] [address] [place] AST [Catalytic activity/Vol] 20 U/L Normal 14-40 [facility] Comment on above: Order Comment: Speci men Type: BLOOD SPECIMEN Ordering Facility: [facility] Address: [address] [place] [address] Performed By: #### 3 -3, #### [facility] CLIA [id number] [address] [place] [address] [place] Bilirubin [Mass/Vol] 1.0 mg/dL Normal 0.2-1.3 [facility] Comment on above: Order Comment: Speci men Type: BLOOD SPECIMEN Ordering Facility: [facility] Address: [address] [place] [address] Performed By: #### 3 040-3, #### [facility] CLIA [id number] [place] [address] [place] Calcium [Mass/Vol] 9.3 mg/dL Normal 8.5-10.2 [facility] Comment on above: Order Comment: Speci men Type: BLOOD SPECIMEN Ordering Facility: [facility] Address: [address] [place] [address] Performed By: #### 3 -3, #### [facility] CLIA [id number] [address] [place] [address] [place] Chloride [Moles/Vol] 105 mmol/L Normal 98-107 [facility] Comment on above: Order Comment: Speci men Type: BLOOD SPECIMEN Ordering Facility: [facility] Address: [address] [place] [address] Performed By: #### 3 040-3, #### [facility] CLIA [id number] [address] [place] [address] [place] CO2 [Moles/Vol] 25 mmol/L Normal 22-30 [facility] Comment on above: Order Comment: Speci men Type: BLOOD SPECIMEN Ordering Facility: [facility] Address: [address] [place] [address] Performed By: #### 3 040-3, 11250-2 #### [facility] CLIA [id number] [address] [place] [address] [place] Creatinine [Mass/Vol] 0.89 mg/dL Normal 0.73-1.22 [facility] Comment on above: Order Comment: Yue dover Type: BLOOD SPECIMEN Ordering Facility: [facility] Address: [address] [place] [address] Performed By: #### 3 040-3, 36611-9 #### [facility] CLIA [id number] [address] [place] [address] [place] Creatinine and Glomerular filtration rate.predicted panel (S/P/Bld) 103 mL/min/1.73m??? Normal >=60 [facility] Comment on above: Order Comment: Yue dover Type: BLOOD SPECIMEN Ordering Facility: [facility] Address: [address] [place] [address] Result Comment: Prerna mated Glomerular Filtration Rate (eGFR) is calculated using the 2020 CKD-EPI creatinine equation. This equation utilizes serum creatinine, sex, and age as parameters. The creatinine assay has traceable calibration to isotope dilution-mass spectrometry. Refer to KDIGO guidelines for clinical interpretation. In patients with unstable renal function, e.g. those with acute kidney injury, the eGFR may not accurately reflect actual GFR. Performed By: #### 3 040-3, 40419-5 #### [facility] CLIA [id number] [address] [place] [address] [place] Glucose [Mass/Vol] 104 mg/dL High 74-99 [facility] Comment on above: Order Comment: Yue dover Type: BLOOD SPECIMEN Ordering Facility: [facility] Address: [address] [place] [address] Result Comment: The [place] [employer] (ADA) provides guidance for cutoff values for fasting glucose and random glucose. The ADA defines fasting as no caloric intake for at least 8 hours. Fasting plasma glucose results between 100 to 125 mg/dL indicate increased risk for diabetes (prediabetes). Fasting plasma glucose results greater than or equal to 126 mg/dL meet the criteria for diagnosis of diabetes. In the absence of unequivocal hyperglycemia, results should be confirmed by repeat testing. In a patient with classic symptoms of hyperglycemia or hyperglycemic crisis, random plasma glucose results greater than or equal to 200 mg/dL meet the criteria for diagnosis of diabetes. Reference: Standards of Medical Care in Diabetes 2016, [place] [employer]. Diabetes Care. 2016.39(Suppl 1). Performed By: #### 3 040-3, 32328-0 #### [facility] CLIA [id number] [address] [place] [address] [place] Potassium [Moles/Vol] 4.8 mmol/L Normal 3.7-5.1 [facility] Comment on above: Order Comment: Speci men Type: BLOOD SPECIMEN Ordering Facility: [facility] Address: [address] [place] [address] Performed By: #### 3 -3, 16509-0 #### [facility] CLIA [id number] [address] [place] [address] [place] Protein [Mass/Vol] 6.5 g/dL Normal 6.3-8.0 [facility] Comment on above: Order Comment: Speci men Type: BLOOD SPECIMEN Ordering Facility: [facility] Address: [address] [place] [id number] Performed By: #### 3 040-3, 84113-8 #### [facility] CLIA [id number] [address] [place] [address] [place] Sodium [Moles/Vol] 139 mmol/L Normal 136-144 [facility] Comment on above: Order Comment: Speci men Type: BLOOD SPECIMEN Ordering Facility: [facility] Address: [address] [place] [id number] Performed By: #### 3 -3, 60768-9 #### [facility] CLIA [id number] [address] [place] [address] [place] Urea nitrogen [Mass/Vol] 14 mg/dL Normal 9-24 [facility] Comment on above: Order Comment: Speci men Type: BLOOD SPECIMEN Ordering Facility: [facility] Address: [address] [place] [address] Performed By: #### 3 040-3, 29237-9 #### [facility] CLIA [id number] [place] [address] [place] ECG COMPLETEon 10-12-2024 ECG COMPLETE Ventricular Rate : 7 8 BPM Atrial Rate : 78 BPM P-R Interval : 136 ms QRS Duration : 92 ms Q-T Interval : 386 ms QTC Calculation(Bazett) : 440 ms Calculated P Nova : 65 degrees Calculated R Nova : 35 degrees Calculated T Nova : 59 degrees Normal sinus rhythm Normal ECG NO STEMI Confirmed by BHUMIKA THOMPSON MD ([id number]), associate editor MELVIN FUENTES ([id number]) on 10/15/2024 7:02:28 AM NAME : GUILLERMO HERNANDEZ PID : [id number] : 1970 Gender : Male Race : ORD : [id number] Procedure Date : Oct 12 2024 11:38:23 Edit Date : Oct 15 2024 07:02:34 Diagnosis: Normal sinus rhythm Normal ECG NO STEMI Confirmed by BHUMIKA THOMPSON MD ([id number]), associate editor MELVIN FUENTES ([id number]) on 10/15/2024 7:02:28 AM Test Reason : Chest Pain Location : 302 : ED ED Overread By : BHUMIKA THOMPSON MD Edited By : MELVIN FUENTES Referred By : , Acquired by : [id number], [facility] ED NOTEon 10-12-2024 ED NOTE HNO ID: [id number] Author: REGINALD MCKNIGHT RN Service: ? Author Type: Registered Nurse Type: ED Notes Filed: 10/12/2024 14:39 Note Text: Patient received written and verbal discharge instructions. Patient verbalizes understanding and all questions were answered. Instructed to follow up with primary care doctor or follow-up doctor. No acute distress noted upon discharge and instructed to come back to emergency room if symptoms worsen. Patient verbalized understanding. All belongings with patient. Patient ambulated with steady gait out of ED. [facility] ED NOTE HNO ID: [id number] Author: YESICA PATRICK RN Service: ? Author Type: Registered Nurse Type: ED Notes Filed: 10/12/2024 11:02 Note Text: Bed: ED-10H Expected date: 10/11/24 Expected time: Means of arrival: Comments: [facility] ED NOTE HNO ID: [id number] Author: HUONG MAX, ? Service: ? Author Type: Wool Sorter and Tetryl Blender Operator Type: ED Notes Filed: 10/12/2024 07:27 Note Text: Pt reports to Ed with cc of upper ABD pain since Oct 04 after throwing up on the . Pt reports the day after the ABD pain started he had an episode of constipation that has since passed. Pt reports that since then he's had a constant pain in his upper ABD, with SOB and nausea. Pt denies any CP or cardiac Hx. Normal [facility] ED PROV NOTEon 10-12-2024 ED PROV NOTE HNO ID: [id number] Author: SHEFALI SCHAEFER PA-C Service: ? Author Type: Physician Hris Specialist Type: ED Provider Notes Filed: 10/12/2024 23:45 Note Text: ED Provider Note Patient Name: Guillermo Hernandez : 1970 SERVICE DATE: 10/12/24 History Patient presents with: Abdominal Pain: Upper ABD pain x5 days Shortness of Breath Patient is a 54 year-old male presenting to the ED for 10 day history of intermittent epigastric discomfort, intermittent shortness of breath, nausea. He has a history of atypical chest pain (Denies cardiac history in himself or Fhx of sudden cardiac ), MDD, spondylosis. Reports he takes no prescription medications. Patient reports on 10/02 he felt nauseated, had one episode of non bloody non bilious emesis. Denies significant retching. Reports daughter at home sick with GI illness. He reports following vomiting, the next few days he had a dull pain to his epigastric region. He reports pain waxes/wanes. Seems worse with sitting upright or eating. Along with symptoms he has felt continued nausea but denies vomiting. Reports abdomen feels full had some constipation for a few days, which is abnormal. Reports he did have a normal BM today without melena orhematochezia. Patient reports along with symptoms he has had some intermittent pressure he reports sometimes to his chest but mostly to his epigastric region. No radiation to jaw, back arms. No diaphoresis syncope. He reports early satiety and feels that food is not going down as smooth . Is not regurgitating food. He reports he has had some occasional shortness of breath with eating/swallowing foods. He denies shortness of breath at rest or exertionally. Has not tried any medications for symptoms. Patient reports all symptoms were new since vomiting episode. He woke up yesterday and felt more short of breath in the AM, reports he had stood up and felt lightheaded. He reports he went to the ED here but LWBS due to wait and then seen at [facility] in [place]. Patient reports while there he had a cardiac work up and CXR reports he also had a CT scan but is not sure of his chest/abdomen. Reports he was told everything looked ok and discharged. He presents today for another opinion of symptoms. He does have a PCP. Denies urinary symptoms. No weight loss. No history of DVT/PE, HRT/estrogen use, leg swelling, active malignancy. No recent trauma or travel. Denies ETOH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 bleeding or clotting disorder. Pt is not takinganti-coagulation or platelet medications. No history of hematological symptomsor problems.Oncology: No history of CA metastasis, chemo within 30 days, or radiotherapywithin 90 days. Has not lost 10% of body wt in 6 months. No history ofoncological symptoms or problems.Psych: anxiety, retpititive thoughts; OCD; no depression, bipolarMusculoskeletal: See HPI, chronicback pain, DDDSkin: Negative for lesions, rash and itching.ObjectivePHYSICA L EXAM:VITALS:BP 140/78 Pulse 100 Temp (Src) 98.3 (Temporal Artery) Resp 16 Ht 6' 4 (1.93m) Wt 224 lb (101.6kg) SpO2 98% BMI 27.28 kg/(m2).General: Alert and oriented, No acute distress, Healthy appearanceSkin: Normal color, no rash, no lesions.HEENT: EOM, pupils equal, round and reactive.Cardiovascular: Normal S1 AND S2, no rubs, murmurs or gallops. No JVD. Pulseregular.Lungs: Normal breath sounds, no wheezes or crackles.Abdomen: Soft, non-tender, no rigidity.Extremities: No c/c/erythema. 2+ pit edema BLL, no cords.Neurological: Normal cognition and motor skills.Pulses: pedal and radial pulses normal +2Diagnostic tests reviewed for today's visit: Lab Value Units Date High Low HB 14.9 g/dL 05/29/2018 17.0 13.0 HCT 43.8 % 05/29/2018 51.0 39.0 WBC 6.69 k/uL 05/29/2018 11.00 3.70 PLT 210 k/uL 05/29/2018 400 150 NA 142 mmol/L 06/30/2018 144 136 K 4.3 mmol/L 06/30/2018 5.1 3.7 GLUC 86 mg/dL 06/30/2018 99 74 BUN 11 mg/dL 06/30/2018 24 9 CREAT 0.97 mg/dL 06/30/2018 1.22 0.73 PTSEC No results within date range. INR No results within date range. APTT No results within date range. ALT 14 U/L 05/29/2018 54 10 AST 17 U/L 05/29/2018 40 14 TBILI 0.4 mg/dL 05/29/2018 1.3 0.2 TSH No results within date range. Lab Value Units Date High Low HCGQT No results within date range. UHCG No results within date range. HCG, BODY* No results within date range. Lab Value Units Date High Low ABORHD No results within date range. ABSCREEN No results within date range.Hemoglobin A1C (%)Date Value07/02/2013 4.8 Most recent labsECGProcedure Date : Jun 12 2018 17:56:01Edit Date : Jun 13 2018 13:07:36? Diagnosis:NORMAL SINUS RHYTHMNORMAL ECGAssessmentASSESSMENT( Z01.818) Preop examination (primary encounter diagnosis)(M76.71) Peroneal tendonitis, right(M21.621) Bunionette of right foot(M25.571) Pain, joint, ankle and foot, right(M96.1) Postlaminectomy syndrome, lumbar region(Z86.69) History of seizures as a child: resolved(G47.33) CHAY (obstructive sleep apnea)(R00.2) Palpitations: benign; holter 2016 shows Sinus rhythm, Sinus tachycardiaTwo ventricular ectopic beatsRare supraventricular ectopic beats,pairs, one nonsustained SVT runSymptoms noted did not correlatewith any ecg changesMETS:Do heavy work around the house, such as scrubbing floors, lifting or movingheavy furniture (8.00 METs)Patient denies any chest pain or undue shortness of breath with the abovephysical activity.ASA Class: 3ANESTHESIA FINDINGS:Intubation History: No history of difficult intubationSignificant Anesthesia Considerations: NoneAirway Exam: General: Normal appearance Mallampati Score is CLASS I ULBT: Class I - Lower incisors can bite the upper lip above the vermillionline Neck: Normal appearance and function, Distance from hyoid to mentum during neckextension is at least 3 finger breaths Mouth: Normal tongue size and Mouth opening greater than 2 finger breaths Dentition: IntactAirway History: No abnormal airway historySTOP BANG Score: hx CHAY resolved with surgery.Score 2PLANThis patient is optimally prepared for surgery.CONSULTS:Patient does not require consults for optimization at this time.The Following Tests/Procedures Have Been Initiated:nonePlanned Anesthetic: GeneralInstructions Given to Patient:Patient given verbal and written preop instructions and voices comprehension andcompliance.SIGNATURE: Cindy Eaton PA-C PATIENT NAME: Guillermo HernandezDATE: June 30, 2018 : 2:26 PM PAGER/CONTACT #:Cindy Eaton PA-C 06/30/2018 2:37 PM SignedPATIENT PREOPERATIVE INSTRUCTIONSLindsey Hernández MD has scheduled you for your procedure at this surgerycenter:[facility]: [phone] --[phone] [address].Please read below carefully for your personalized instructions.Blood Thinning Medications:- Stop NSAIDS (Ibuprofen, Advil, Aleve, Motrin, Celebrex, Mobic, etc.) 7 daysbefore surgery, as directed by your surgeon.- Stop Aspirin 7 days before surgery, as directed by your surgeon.- Stop Vitamin E, ALL multi-vitamins, herbals and dietary supplements 14 daysbefore surgery.- You may take Tylenol (Acetaminophen) or any of your pain medications that donot contain aspirin or NSAIDS as needed.Dietary Restrictions:- No solid food after midnight.- You may have 12 ounces of clear liquids (water, clear juices such as applejuice or gatorade, carbonated beverages, clear tea, black coffee, jello) until 2hours before scheduled arrival at facility.Pain Medications:Medications: Approved medications to take the morning of surgery with a sip of water: noneIf you take any medications for erectile dysfunction-Cialis (Tadalafil),Levitra, Staxyn (Vardenafil) Viagra (Sildenenafil please do not take these for48 hours before surgery.If you start any new medications after today's visit, [facility].Important Reminders:- If you use CPAP/BIPAP, bring the machine with you to the surgery center.- If you are prescribed inhalers for breathing, continue using them AND bringthem to the surgery center.- Candy, mints, gum and tobacco products are NOT permitted the morning ofsurgery.- Hearing aids, dentures and glasses may be worn the morning of surgery.- NO jewelry, body piercings, makeup, hairpins or contacts are to be worn theday of surgery.If you develop symptoms such as a fever, cold, or flu, or have other changes [facility]yl[facility] within TWO DAYS of scheduled surgery or the morning of surgery,please contact the surgery center above.Personal Belongings:- Leave ALL valuables and money at home or with family members.For Outpatient Procedures: - YOU MUST HAVE A RESPONSIBLE GLOVE WRAPPER TAKE YOU HOME. A BOARD CERTIFIED ARTS THERAPIST OR CAB DRIVERCANNOT BE MADE A RESPONSIBLE GLOVE WRAPPER.- We recommend that a responsible person stays with you overnight to take careof you.- You cannot stay in a hotel alone after outpatient surgery. You will not bepermitted to have your surgery, if you do not have someone to take care of you. Arrival Time for Surgery:- The Surgery Center or hospital where you are having surgery will call theafternoon before surgery (or Tuesday for Tuesday surgery) with a scheduled arrivaltime.- If you have not heard by 4 pm, please contact the surgery center above.Please be aware that emergency situations arise, which may delay or change yoursurgical time. If this happens, we will notify you as soon as possible andregret any inconvenience.Cindy Eaton PA-C [facility] NURSING PROGon 12-08-2017 Protein mass conc HNO ID: [id number]: Ivone (Rn) Artim, RNService: (none)Author Type: Registered NurseType: Nursing Progress NoteFiled: 12/08/2017 3:29 PMNote Text:PACC Nurse Progress NoteHistory AND Physical:PACC Visit Date: 12/01/17Original HANDP Date: N/AED visit Date: N/AOutside HANDP Scanned Date: N/ALabs Within Last 6 Months:CBC: Date 07/31/17BMP/CMP: Date 07/08/17 * labs within acceptable limits per anesthesia guidelines for plannedprocedure.Imaging Within Last 12 Months:See chartCardiac Testing:EKG in last 12 Months: 07/08/17 - within acceptable limits per anesthesiaguidelines for planned procedure.Risk Assessment:N/AAnesthesia Review:DOSNarrative:N/AP re-op Considerations:-History of palpitations- negative cardiac workup-Seizures as a child- none recent- no treatment-H/O CHAY, s/p UPP, no longer requiring CPAPChart Check:COMPLETEDNaa Escobedo 2017 3:24 PM [facility] MRI LUMBAR SP W & WO CONTRAS Ton 04-27-2017 MRI LUMBAR SP W & WO CONTRAST STUDY:MRI LUMBAR SP W WO CONTRAST; 04/27/2017 10:00 amINDICATION:O/A, POST MARIN SYNDROME, LBP.COMPARISON:Radiograp hs from March 23, 2017. ORDERING CLINICIAN:Sanjay Lares:Sagittal and axial T1 and T2 weighted images of the lumbar spine wereacquired. Sagittal STIR images and axial and sagittal postcontrast [id number] images were also obtained. The patient received 20 mLOmniscan.FINDINGS:Alig nment: The vertebral alignment is maintained.Vertebrae/Int ervertebral Discs: The vertebral bodies demonstrateexpected height.Degenerative endplate signal changes are noted atL4/5. Disc desiccation is demonstrated at L4/5 and L5/S1. Loss ofdisc height and endplate spurring are also demonstrated at theselevels.Conus: The lower thoracic cord appears unremarkable. The conusterminates at L1.L5-S1: Mild degenerative facet changes are demonstrated on the left.There is mild disc bulging with subtle impression on the ventralthecal sac but no significant central canal stenosis. There is linearhyperintensity on T2 weighted imaging along the posterior margin ofthe disc suggestive of a tiny annular tear or fissure. There isminimal left and no significant right neural foraminal stenosis.L4-5: There is a posterior laminectomy defect. Degenerative facetchanges are demonstrated. There is circumferential disc bulging witha superimposed right paracentral disc protrusion impressing on theventral thecal sac. There is mild narrowing of the lateral recessesbut no significant central canal stenosis. There is mild narrowing ofthe neural foramina.L3-4: Mild degenerative facet changes and ligamentum flavumhypertrophy are demonstrated. There is subtle circumferential discbulging but no significant central canal stenosis. There is nosignificant neural foraminal narrowing.L2-3: There is no significant central canal or neural foraminalstenosis.L1-2: There is no significant central canal or neural foraminalstenosis.T12-L1 : There is no significant central canal or neural foraminalstenosis.The paraspinous soft tissues are unremarkable.There is a prominent sacral cyst centered to the right of midline atS2 with some remodeling and scalloping of the S2 vertebral bodymeasuring up to 3.3 cm in AP dimension. There is also minimalscalloping of the posterior aspect of L5 and possibly L4 with asomewhat patulous appearance of the thecal sac which may be seen withdural ectasia.IMPRESSION:1. Status post laminectomies at L4 and L5.2. Degenerative changes of the lumbar spine primarily involving L4/5and L5/S1. Normal [facility] CBC W/DIFFon 03-23-2017 BASO ABS 0.0 K/uL Normal 0.0-0.2 [facility] Comment on above: Order Comment: CBN: YESCampus: MAIN Performed By: #### L 200.97925, L200.57192 ####Test performed at: [address] [address] Basophils/100 WBC Auto (Bld) 0.7 % Normal [facility] Comment on above: Order Comment: CBN: YESCampus: MAIN Performed By: #### L 200.08330, L200.55842 ####Test performed at: [address] [address] EOS ABS 0.0 K/uL Normal 0.0-0.5 [facility] Comment on above: Order Comment: CBN: YESCampus: MAIN Performed By: #### L 200.66842, L200.65011 ####Test performed at: [address] [address] Eosinophils/100 leukocytes 0.7 % Normal [facility] Comment on above: Order Comment: CBN: YESCampus: MAIN Performed By: #### L 200.81515, L200.03084 ####Test performed at: [address] [address] Erythrocyte distribution width Auto Ratio (RBC) 12.1 % Normal 11.5-14.5 [facility] Comment on above: Order Comment: CBN: YESCampus: MAIN Performed By: #### L 200.58184, L200.91806 ####Test performed at: [address] [address] Erythrocytes (RBC) 0.000 10*6/uL Normal 0-0.012 [facility] Comment on above: Order Comment: CBN: YESCampus: MAIN Performed By: #### L 200.74482, L200.72461 ####Test performed at: [address] [address] Erythrocytes (RBC) 4.81 10*6/uL Normal 3.5-5.5 [facility] Comment on above: Order Comment: CBN: YESCampus: MAIN Performed By: #### L 200.95962, L200.23244 ####Test performed at: [address] [address] Hematocrit (HCT) 44.1 % Normal 39.0-55.0 [facility] Comment on above: Order Comment: CBN: YESCampus: MAIN Performed By: #### L 200.05907, L200.59084 ####Test performed at: [address] [address] Hemoglobin mass conc (Bld) 15.1 g/dL Normal 14.0-16.5 [facility] Comment on above: Order Comment: CBN: YESCampus: MAIN Performed By: #### L 200.51523, L200.38745 ####Test performed at: [address] [address] IG % 0.5 % Normal [facility] Comment on above: Order Comment: CBN: YESCampus: MAIN Performed By: #### L 200.03235, L200.27304 ####Test performed at: [address] [address] IG ABS 0.03 K/uL Normal 0-0.05 [facility] Comment on above: Order Comment: CBN: YESCampus: MAIN Performed By: #### L 200.78874, L200.33556 ####Test performed at: [address] [address] Lymphocytes 1.4 10*3/uL Normal 1.2-3.5 [facility] Comment on above: Order Comment: CBN: YESCampus: MAIN Performed By: #### L 200.30402, L200.89796 ####Test performed at: [address] [address] Lymphocytes/100 leukocytes 23.2 % Normal [facility] Comment on above: Order Comment: CBN: YESCampus: MAIN Performed By: #### L 200.69757, L200.22032 ####Test performed at: [address] [address] MCH 31.4 pg Normal 25.4-34.6 [facility] Comment on above: Order Comment: CBN: YESCampus: MAIN Performed By: #### L 200.72955, L200.25004 ####Test performed at: [address] [address] MCHC mass conc (RBC) 34.2 g/dL Normal 31.5-36.5 [facility] Comment on above: Order Comment: CBN: YESCampus: MAIN Performed By: #### L 200.30324, L200.91496 ####Test performed at: [address] [address] MCV 91.7 fL Normal 80.0-100.0 [facility] Comment on above: Order Comment: CBN: YESCampus: MAIN Performed By: #### L 200.70715, L200.64690 ####Test performed at: [address] [address] MONO ABS 0.5 K/uL Normal 0.0-1.0 [facility] Comment on above: Order Comment: CBN: YESCampus: MAIN Performed By: #### L 200.70252, L200.07457 ####Test performed at: [address] [address] Monocytes/100 leukocytes 8.6 % Normal [facility] Comment on above: Order Comment: CBN: YESCampus: MAIN Performed By: #### L 200.18381, L200.39744 ####Test performed at: [address] [address] Neutrophils 3.9 10*3/uL Normal 1.4-6.6 [facility] Comment on above: Order Comment: CBN: YESCampus: MAIN Performed By: #### L 200.35345, L200.94713 ####Test performed at: [address] [address] Neutrophils/100 WBC Auto (Bld) 66.3 % Normal [facility] Comment on above: Order Comment: CBN: YESCampus: MAIN Performed By: #### L 200.13191, L200.57080 ####Test performed at: [address] [address] NRBC % 0.0 /100 WBC Normal 0-0.2 [facility] Comment on above: Order Comment: CBN: YESCampus: MAIN Performed By: #### L 200.07208, L200.50976 ####Test performed at: [address] [address] Platelet mean volume (PMV) 10.3 fL Normal 8.7-12.4 [facility] Comment on above: Order Comment: CBN: YESCampus: MAIN Performed By: #### L 200.32367, L200.21443 ####Test performed at: [place] [id number] Platelets 188 10*3/uL Normal 140-440 [facility] Comment on above: Order Comment: CBN: YESCampus: MAIN Performed By: #### L [id number], [id number] ####Test performed at: [address] [address] WBC (Leukocytes) 5.8 10*3/uL Normal 3.9-11.0 [facility] Comment on above: Order Comment: CBN: YESCampus: MAIN Performed By: #### L [id number], [id number] ####Test performed at: [address] [address] CRPon 03-23-2017 C reactive protein (CRP) mg/L Normal 0.0-3.0 [facility] Comment on above: Order Comment: CBN: YESCampus: MAIN Performed By: #### L [id number] ####Test performed at: [place] [id number] LUMB SP COMP W FLEX/EXT 6 VW Son 03-23-2017 LUMB SP COMP W FLEX/EXT 6 VWS STUDY:LUMB SP COMP W FLEX/EXT 6 VWS ; 03/23/2017 11:35 amINDICATION:. Back painCOMPARISON:None.ACCE SSION NUMBER(S):[id number] ORDERING CLINICIAN:Sanjay HernandezFINDINGS:No lumbar spine fracture or subluxation. Mild lower lumbardegenerative changes. No spondylolisthesis. No instability on flexionor extension. No pars defects.IMPRESSION:Mild lower lumbar degenerative changes without instability. Normal [facility] THORACIC SPINE 2 VIEWSon THORACIC SPINE 2 VIEWS STUDY: THORACIC SPINE 2 VIEWS; 03/23/2017 11:35 am INDICATION: PAIN. COMPARISON: None. ACCESSION NUMBER(S): [id number] ORDERING CLINICIAN: Sanjay Hernandez FINDINGS: No thoracic spine fracture or subluxation. IMPRESSION: No thoracic spine fracture. Normal [facility] WSR/MODon 03-23-2017 WSR/MOD 6 mm/hr Normal 0-20 [facility] Comment on above: Order Comment: CBN: YESCampus: MAIN Performed By: #### L [id number], [id number] ####Test performed at: [address] [address] Vital Signs Date Time Vital Sign Value Performing Clinician Facility 12-28-2024 07:140400 Body height 193 cm Pac 3 Work Phone: [facility] 12-28-2024 07:14-0400 Body mass index (BMI) [Ratio] 25.68 kg/m2 Pac 3 Work Phone: [facility] 12-28-2024 07:14-0400 Body temperature 98.01 [degF] Pac 3 Work Phone: [facility] 12-28-2024 07:14-0400 Body weight 95.7 kg Pac 3 Work Phone: [facility] 12-28-2024 07:14-0400 Diastolic blood pressure 77 mm[Hg] Pacc 3 Work Phone: [facility] 12-28-2024 07:14-0400 Heart rate 67 /min Pacc 3 Work Phone: [facility] 12-28-2024 07:14-0400 Respiratory rate 16 /min Pacc 3 Work Phone: [facility] 12-28-2024 07:14-0400 SaO2% (BldA) [Mass fraction] 97 % Pacc 3 Work Phone: [facility] 12-28-2024 07:14-0400 Systolic blood pressure 125 mm[Hg] Pacc 3 Work Phone: [facility] 11-30-2024 10:53-0400 Body mass index (BMI) [Ratio] 25.32 kg/m2 Genevieve Merritt MD Work Phone: [facility] 11-30-2024 10:53-0400 Body weight 94.35 kg Genevieve Merritt MD Work Phone: [facility] Comment on above: verbal 11-22-2024 12:50-0400 Body height 193 cm Alcira Alatorre PA-C Work Phone: [facility] 11-22-2024 12:50-0400 Body mass index (BMI) [Ratio] 25.12 kg/m2 Alcira Alatorre PA-C Work Phone: [facility] 11-22-2024 12:50-0400 Body weight 93.6 kg Alcira Alatorre PA-C Work Phone: [facility] 11-22-2024 12:50-0400 Diastolic blood pressure 54 mm[Hg] Alcira Alatorre PA-C Work Phone: [facility] 11-22-2024 12:50-0400 Heart rate 78 /min Alcira Alatorre PA-C Work Phone: [facility] 11-22-2024 12:50-0400 Systolic blood pressure 133 mm[Hg] Alcira Alatorre PA-C Work Phone: [facility] 10-29-2024 13:30-0400 Diastolic blood pressure 70 mm[Hg] Aurora Carmichael MD Work Phone: [facility] 10-29-2024 13:30-0400 Heart rate 77 /min Aurora Carmichael MD Work Phone: [facility] 10-29-2024 13:30-0400 Respiratory rate 16 /min Aurora Carmichael MD Work Phone: [facility] 10-29-2024 13:30-0400 SaO2% (BldA) [Mass fraction] 96 % Aurora Carmichael MD Work Phone: [facility] 10-29-2024 13:30-0400 Systolic blood pressure 110 mm[Hg] Aurora Carmichael MD Work Phone: [facility] 10-23-2024 12:59-0400 Body height 193 cm Rei Ingram DO Work Phone: [facility] 10-23-2024 12:59-0400 Body mass index (BMI) [Ratio] 25.44 kg/m2 Rei Ingram DO Work Phone: [facility] 10-23-2024 12:59-0400 Body weight 94.8 kg Rei Ingram DO Work Phone: [facility] 10-23-2024 12:59-0400 Diastolic blood pressure 73 mm[Hg] Rei Ingram DO Work Phone: [facility] 10-23-2024 12:59-0400 Heart rate 75 /min Rei Ingram DO Work Phone: [facility] 10-23-2024 12:59-0400 SaO2% (BldA) [Mass fraction] 99 % Rei Ingram DO Work Phone: [facility] 10-23-2024 12:59-0400 Systolic blood pressure 127 mm[Hg] Rei Ingram DO Work Phone: [facility] Encounters Encounter Date Encounter Type Care Provider Facility Start: 12-28-2024 End: 12-28-2024 Admission to establishment [facility] 3 Work Phone: Pre Anesthesia Start: 12-28-2024 End: 12-28-2024 Anesthesia consultation [facility] 3 Work Phone: Pre Anesthesia Comment on above: Pre-op evaluation (P rimary Dx); CHAY (obstructive sleep apnea) Start: 12-28-2024 End: 12-28-2024 Preprocedural examination done [facility] Work Phone: [facility] Work Phone: Start: 12-28-2024 End: 12-28-2024 ambulatory WAHIB RENÉ Facility:[facility] Start: 12-28-2024 Encounter for other preprocedural examination REI INGRAM [facility] Start: 12-24-2024 End: 12-24-2024 ambulatory REI INGRAM Facility:[facility] Start: 12-24-2024 Encounter for other preprocedural examination REI INGRAM [facility] Start: 12-12-2024 ambulatory ALCIRA Quinterosi ty:[facility] Start: 12-12-2024 End: 12-12-2024 Subsequent hospital visit by physician [facility] Work Phone: [facility] Radiology Molecular Comment on above: Nausea [R11.0] Start: 12-11-2024 End: 12-11-2024 Telephone encounter Beatriz Powers RT(R) [facility] Radiology Molecular Comment on above: Radiology NM Start: 12-05-2024 ambulatory ALCIRA Quinterosi ty:[facility] Start: 12-04-2024 End: 12-04-2024 Telephone encounter Carmen Anguiano [facility] Radiol ogy Molecular Comment on above: Radiology NM Start: 11-30-2024 End: 11-30-2024 ambulatory [facility] RENÉ [facility] Start: 11-30-2024 End: 11-30-2024 Patient encounter procedure Wahib René MD Work Phone: Urology Comment on above: Calculus of kidney ( Primary Dx) Start: 11-30-2024 End: 11-30-2024 ambulatory REI CUEVAS [facility] Facility:[facility] Start: 11-23-2024 ambulatory REI MASON [facility] Facility:[facility] Start: 11-23-2024 End: 11-23-2024 Subsequent hospital visit by physician Gi/Gu 1 [facility] Work Phone: RADIO GI/ [facility] Comment on above: Early satiety [R68.8 1] Start: 11-22-2024 End: 11-22-2024 ambulatory REI CUEVAS [facility] Facility:[facility] Start: 11-22-2024 End: 11-22-2024 Office outpatient new 45 minutes Alcira Alatorre PA-C Work Phone: Gastroenterology Comment on above: Early satiety (Prima ry Dx); Epigastric pain; Nausea Start: 11-01-2024 End: 11-01-2024 Follow-up encounter Aurora Carmichael MD Work Phone: Gastroenterology Comment on above: Results Start: 10-29-2024 End: 10-29-2024 ambulatory REI RUSHER Facility:[facility] Start: 10-29-2024 End: 10-29-2024 Subsequent hospital visit by physician Aurora Carmichael MD Work Phone: Ambulatory Surgery Comment on above: Epigastric pain [R10 .13] Start: 10-23-2024 End: 10-23-2024 ambulatory REI INGRAM Facility:[facility] Start: 10-23-2024 End: 10-23-2024 Office outpatient new 30 minutes Rei Ingram DO Work Phone: Internal Medicine [place] Comment on above: Epigastric pain (Adali alejandra Dx); SOB (shortness of breath) Start: 10-11-2024 End: 10-11-2024 Emergency department patient visit REI INGRAM Facility:[facility] Start: 09-19-2024 End: 09-19-2024 Telephone encounter Annika Alfonso MD Work Phone: Pain Management Comment on above: Patient Question Start: 07-02-2019 End: 07-02-2019 Patient encounter procedure LUCY MART Facility:[facility] Start: 06-26-2019 End: 06-26-2019 Patient encounter procedure DOCTOR MISC Facility:[facility] Start: 08-08-2018 End: 08-08-2018 Patient encounter procedure DOCTOR MISC Facility:[facility] Start: 07-20-2018 End: 07-20-2018 Patient encounter procedure DOCTOR MISC Facility:[facility] Start: 07-07-2018 End: 07-07-2018 Patient encounter procedure DOCTOR MISC Facility:[facility] Start: 07-03-2018 End: 07-03-2018 Patient encounter procedure [facility] Start: 04-27-[address] [facility] Facility: [facility] Start: 04-27-2017 Ambulatory Facility:[id number] Start: 03-23-[address] [facility] Facility: [facility] Start: 03-23-2017 Ambulatory Facility:[id number] Procedures Date Procedure Procedure Detail Performing Clinician Start: 12-12-2024 Gastric emptying imaging study Alcira baker PA-C Work Phone: Start: 11-23-2024 XR UPPER GI SINGLE CONTRAST Alcira padilla PA-C Work Phone: Start: 11-23-2024 Radiologic exam small int single contrast study Alcira Alatorre PA-C Work Phone: Start: 10-29-2024 Esophagogastroduodenoscopy transoral diagnostic Rei Ingram DO Work Phone: Start: 10-23-2024 Ecg routine ecg w/least 12 lds i&r only [facility] Provider Start: 06-26-2019 End: 06-26-2019 Microscopic examination of blood, culture DOCTOR MIS Comment on above: Performed By: #### [id number] #### [facility] [address] [address] Dion Velazquez Performed By: #### B [id number] #### [facility] [address] [address] Dion Velazquez Start: 05-29-2018 Lipid 1996 panel - Serum or Plasma Dewayne Alfonso MD Work Phone: Start: 10-26-2016 Colonoscopy Annika Alfonso MD Work Phone: Plan of Treatment Date Care Activity Detail Author Start: 10-12-2027 Diabetes Screening Diabetes Screening [facility] Start: 10-26-2026 Screening for malignant neoplasm of colon [facility] Start: 04-15-2025 Influenza vaccination Influenza Vaccine (Season Ended) [facility] Start: 01-01-2025 End: 01-01-2025 Admission to same day surgery center 01/01/2025 1:00 PM EDT - 01/01/2025 2:30 PM EDT Surgery [facility] Surgery [address] [place] [address] [place] [address] [place] [address] CYSTOURETHROSCOPY W/ URETEROSCOPY AND/OR PYELOSCOPY W/ LITHOTRIPSY INCLUDE INSERTION OF INDWELLING URETERAL STENT [facility] Surgery Comment on above: CYSTOURETHROSCOPY W/ URETEROSCOPY AND/OR PYELOSCOPY W/ LITHOTRIPSY INCLUDE INSERTION OF INDWELLING URETERAL STENT Start: 01-01-2025 End: 01-01-2025 Cysto/uretero w/lithotripsy &indwell stent insrt CYSTOURETHROSCOPY W/ URETEROSCOPY AND/OR PYELOSCOPY W/ LITHOTRIPSY INCLUDE INSERTION OF INDWELLING URETERAL STENT Calculus of kidney 01/01/2025 1:00 PM EDT AV OR Start: 01-01-2025 Subsequent hospital visit by physician 01/01/2025 1:00 PM EDT Hospital Encounter [facility] [address] [place] [address] [place] [address] [place] [address] Calculus of kidney [N20.0] [facility] Surgery Comment on above: Calculus of kidney [N20.0] Start: 12-26-2024 End: 12-26-2024 Patient encounter procedure 12/26/2024 11:00 AM EDT Office Visit [facility] [address] [place] [address] Rei Ingram, DO [address] [place] [phone] Return in about 6 weeks [facility] Comment on above: Return in about 6 weeks Start: 12-12-2024 End: 12-12-2024 Patient encounter procedure 12/12/2024 10:00 AM EDT Appointment [facility] Radiology Molecular [address] [place] [address] Weight 208 / Not Diabetic / Order in EPIC / DX: Nausea [R11.0] Scheduled w/ Patient [facility] Radiology Molecular Comment on above: Weight 208 / Not Diabetic / Order in EPI C / DX: Nausea [R11.0] Scheduled w/ Patient Start: 12-05-2024 End: 12-05-2024 Patient encounter procedure 12/05/2024 1:30 PM EDT Appointment [facility] Radiology Molecular [address] [place] [address] Weight 208 / Not Diabetic / Order in EPIC / DX: Nausea [R11.0] Scheduled w/ Patient [facility] Radiology Molecular Comment on above: Weight 208 / Not Diabetic / Order in EPI C / DX: Nausea [R11.0] Scheduled w/ Patient Start: 12-04-2024 End: 12-04-2024 Patient encounter procedure 12/04/2024 1:30 PM EDT Office Visit [facility] [address] [place] [address] Rei Ingram, DO [address] [place] [phone] Return in about 6 weeks [facility] Comment on above: Return in about 6 weeks Start: 11-30-2024 End: 03-01-2025 Bacteria identified in Urine by Culture [facility] Work Phone: Comment on above: Expected: 11/30/2024, Expires: Start: 11-23-2024 End: 11-23-2024 Patient encounter procedure 11/23/2024 9:00 AM EDT Appointment RADIO GI/ [facility] [address] [place] [address] XR GI SMALL BOWEL FOLLOW-THRU [facility] GI/ [facility] Comment on above: XR GI SMALL BOWEL FOLLOW-THRU Start: 11-22-2024 End: 11-22-2024 Patient encounter procedure 11/22/2024 1:25 PM EDT Office Visit Gastroenterology [address] [place] [address] Alcira Alatorre PA-C [address] [place] [address] early satiety, epigastric pain Gastroenterology Comment on above: early satiety, epigastric pain Start: 10-29-2024 End: 10-29-2024 Patient encounter procedure 10/29/2024 1:00 PM EDT Appointment Ambulatory Surgery [address] [place] [address] [place] [address] [place] [address] Dx: Epigastric pain [R10.13] Ambulatory Surgery Comment on above: Dx: Epigastric pain [R10.13] Start: 10-23-2024 End: 10-23-2024 Anesthesia consultation 10/23/2024 11:59 PM EDT Anesthesia Event Ambulatory Surgery [address] [place] [address] Lyubov Keith APRN.STOCKING INSPECTOR [address] [place] [address] Ambulatory Surgery Start: 04-15-2024 Covid-19 Vaccine ( season) Covid-19 Vaccine ( season) [facility] Start: 04-15-2024 Influenza vaccination Influenza Vaccine (#1) [facility] Start: 05-29-2023 Lipid panel Lipid Screening [facility] Start: 2022 Pneumococcal Vaccine: 50+ (2 of 2 - PCV) Pneumococcal Vaccine: 50+ (2 of 2 - PCV) [facility] Start: 2022 Shingrix Vaccine (1 of 2) Shingrix Vaccine (1 of 2) [facility] Start: 05-29-2021 Diabetes Screening Diabetes Screening [facility] Start: 10-26-2017 Screening for malignant neoplasm of colon [facility] Start: 10-18-2017 Pneumococcal Vaccine: 50+ (2 of 2 - PCV) Pneumococcal Vaccine: 50+ (2 of 2 - PCV) [facility] Start: 2017 Screening for malignant neoplasm of colon [facility] Start: 1991 Hepatitis B Vaccine (1 of 3 - 19+ 3-dose series) Hepatitis B Vaccine (1 of 3 - 19+ 3-dose series) [facility] Start: 1991 Urine microalbumin profile DTaP,Tdap,Td Vaccine (1 - Tdap) [facility] Start: 1990 Anxiety Screening Anxiety Screening [facility] Start: 1990 Depression Screening Depression Screening [facility] Start: 1990 HIV screening HIV Screening [facility] Cysto/uretero w/lithotripsy &indwell stent insrt CYSTOURETHROSCOPY W/ URETEROSCOPY AND/OR PYELOSCOPY W/ LITHOTRIPSY INCLUDE INSERTION OF INDWELLING URETERAL STENT Calculus of kidney AV OR ECG COMPLETE [facility] Comment on above: Ordered: 10/23/2024 End: 10-23-2025 EGD DIAGNOSTIC EGD DIAGNOSTIC Endoscopy Routine Epigastric pain 1 Occurrences starting 10/23/2024 until 10/23/2025 [facility] Work Phone: Comment on above: 1 Occurrences starting 10/23/2024 until 10/23/2025 End: 12-22-2025 NM Biliary ducts and Gallbladder Views for patency of biliary structures and ejection fraction W sincalide and W radionuclide IV NM HEPATOBILIARY W EF AND/OR RX Radiology Routine Nausea 1 Occurrences starting 11/22/2024 until 12/22/2025 [facility] Comment on above: 1 Occurrences starting 11/22/2024 until 12/22/2025 End: 12-22-2025 NM Stomach Views for gastric emptying solid phase W radionuclide PO NM GASTRIC EMPTYING SOLID Radiology Routine Nausea 1 Occurrences starting 11/22/2024 until 12/22/2025 [facility] Work Phone: Comment on above: 1 Occurrences starting 11/22/2024 until 12/22/2025 End: 12-22-2025 RF Gastrointestinal tract upper Views W barium contrast PO XR UPPER GI SINGLE CONTRAST Radiology Routine Early satiety Epigastric pain Nausea 1 Occurrences starting 11/22/2024 until 12/22/2025 [facility] Comment on above: 1 Occurrences starting 11/22/2024 until 12/22/2025 Tissue Pathology bio psy report [facility] Work Phone: Comment on above: Release Upon Ordering for 1 Occurrences starting 10/29/2024, 1 completed End: 12-22-2025 XR GI SMALL BOWEL FOLLOW-THRU XR GI SMALL BOWEL FOLLOW-THRU Radiology Routine Early satiety Epigastric pain Nausea 1 Occurrences starting 11/22/2024 until 12/22/2025 [facility] Comment on above: 1 Occurrences starting 11/22/2024 until 12/22/2025 Immunizations Immunization Date Immunization Notes Care Provider [facility] 10-18-2016 pneumococcal polysaccharide vaccine, 23 valent Annika Alfonso MD Work Phone: [facility] 07-02-2013 influenza virus vacc ine, unspecified formulation Annika Alfonso MD Work Phone: [facility] Payers Date Payer Category Payer Medicaid [id number] 2016 Government (not [facility] care or Medicaid) [facility] GENERIC [id number] 1972 Unknown [id number] 1972 Unknown [id number] 1972 Unknown [id number] 1972 Unknown [id number] 1972 Unknown [id number] 1959 Unknown [id number] Social History Date Type Detail Facility Start: 10-28-2016 End: 10-23-2024 Tobacco smoking status NHIS Never smoked tobacco [facility] Work Phone: Start: 10-28-2016 End: 10-23-2024 Tobacco use and exposure Smokeless tobacco non-user [facility] Start: 07-17-2019 End: 12-28-2024 Alcoholic beverage intake Current non-drinker of alcohol (finding) [facility] Start: 07-17-2019 End: 10-13-2024 History of Social function [facility] Start: 07-17-2019 End: 10-13-2024 Tobacco use panel [facility] PHQ2 Score 0 [facility] Start: 1972 Sex assigned at Not on file [facility] Medical Equipment Procedure Code Equipment Code Equipment Original Text Equipment Identifier Dates Pfw-Fe-S-Kind Implant - [id number] Start: 07-03-2018 Comment on above: Description: 60mm 7. 3mm cannulated screw Bfr-Np-L-Kind Implant - [id number] Start: 07-03-2018 Comment on above: Description: 70mm 7. 3mm cannulated screw Functional Status Date Assessment Result Facility 01-10-2015 Are you deaf, or do you have serious difficulty hearing No 01/10/2015 1:54 PM EDT Kiersten Calabrese MA No [facility] 01-10-2015 Are you blind, or do you have serious difficulty seeing, even when wearing glasses No 01/10/2015 1:54 PM EDT Kiersten Calabrese MA No [facility] 01-10-2015 Do you have serious difficulty walking or climbing stairs No 01/10/2015 1:54 PM EDT Kiersten Calabrese MA No [facility] 01-10-2015 Do you have difficul ty dressing or bathing No 01/10/2015 1:54 PM EDT Kiersten Calabrese MA No [facility] 01-10-2015 Because of a physica l, mental, or emotional condition, do you have difficulty doing errands alone such as visiting a physician's office or shopping No 01/10/2015 1:54 PM EDT Kiersten Calabrese MA No [facility] Mental Status Date Assessment Result Facility 01-10-2015 Because of a physica l, mental, or emotional condition, do you have serious difficulty concentrating, remembering, or making decisions No 01/10/2015 1:54 PM EDT Kiersten Calabrese MA No [facility] Clinical Notes 09-19-2024 to 12-28-2024 Yvonne Krueger APRN.HOURLY SIGN LANGUAGE INTERPRETER - 12/28/2024 7:30 AM Yvonne Childress APRN.HOURLY SIGN LANGUAGE INTERPRETER - 12/28/2024 7:30 AM EDTPatiFady Rutledge, (R) - 12/12/2024 10:00 AM EDT Note Date & Type Note Facility 12-28-2024 History and physical note Images from the original note were not included. [facility] HISTORY AND PHYSICAL EXAMINATION SERVICE DATE: 12/28/2024 SERVICE TIME: 7:20 AM PRIMARY CARE PHYSICIAN: Rei Ingram DO REASON FOR VISIT: Guillermo Hernandez is a 54 year old male who is scheduled for Left - CYSTOURETHROSCOPY W/ URETEROSCOPY AND/OR PYELOSCOPY W/ LITHOTRIPSY INCLUDE INSERTION OF INDWELLING URETERAL STENT at the request of Dr. Genevieve Merritt for consultation. My final recommendation will be communicated back to the requesting physician by way of shared medical record or letter. Assessment CHAY (obstructive sleep apnea) Assessment: s/p UPPP 2009 [...] equal to 35 kg/m^2 STOP-Bang Score: 2 [id number] Score: Age: <65 Sex: male CHF history: No Hypertension history: No Stroke/TIA/thromboembolism history: No Vascular disease history: No Diabetes history: No [id number] Score: 0 ARISCAT Score: Age: 51-80 Preoperative [...] Foot Peroneal Tendonitis, Right Acute Post-Operative Pain Chay (Obstructive Sleep Apnea) Subjective CHIEF COMPLAINT: Pre-op [...] function is low normal. EF = 54 5% (2D biplane) Baseline left ventricular diastolic [...] fevers. Neuro: No history of TIA's, stroke, ASBESTOS SHINGLE INSPECTOR tumor, impaired sensorium, hemiplegia, paraplegia or quadraplegia. No neurological symptoms or problems. Respiratory: No history of current cough or dyspnea, or pneumonia in the past 6 weeks. No history of respiratory/pulmonary symptoms or problems. Cardiovascular: No history of HTN requiring medication, no history of angina, CHF, MA, cardiac surgery or stents. Denies rest pain, [...] or clotting disorder. Pt is not taking anti-coagulation or platelet medications. No history of hematological [...] voices comprehension and compliance. SIGNATURE: Yvonne Krueger APRN.CNP PATIENT NAME: Guillermo Hernandez DATE: 12/28/2024 TIME: 7:33 AM [facility] 12-28-2024 History and physical note Images from the original note were not included. [facility] HISTORY AND PHYSICAL EXAMINATION SERVICE DATE: 12/28/2024 SERVICE TIME: 7:20 AM PRIMARY CARE PHYSICIAN: Rei Ingram DO REASON FOR VISIT: Guillermo Hernandez is a 54 year old male who is scheduled for Left - CYSTOURETHROSCOPY W/ URETEROSCOPY AND/OR PYELOSCOPY W/ LITHOTRIPSY INCLUDE INSERTION OF INDWELLING URETERAL STENT at the request of Dr. Genevieve Merritt for consultation. My final recommendation will be communicated back to the requesting physician by way of shared medical record or letter. Assessment CHAY (obstructive sleep apnea) Assessment: s/p UPPP 2009 [...] equal to 35 kg/m^2 STOP-Bang Score: 2 [id number] Score: Age: <65 Sex: male CHF history: No Hypertension history: No Stroke/TIA/thromboembolism history: No Vascular disease history: No Diabetes history: No [id number] Score: 0 ARISCAT Score: Age: 51-80 Preoperative [...] Foot Peroneal Tendonitis, Right Acute Post-Operative Pain Chay (Obstructive Sleep Apnea) Subjective CHIEF COMPLAINT: Pre-op [...] function is low normal. EF = 54 5% (2D biplane) Baseline left ventricular diastolic [...] - right PAST SURGICAL HISTORY OF 08/15/2009 [facility] FAMILY HISTORY Problem Relation Age of Onset [...] fevers. Neuro: No history of TIA's, stroke, ASBESTOS SHINGLE INSPECTOR tumor, impaired sensorium, hemiplegia, paraplegia or quadraplegia. No neurological symptoms or problems. Respiratory: No history of current cough or dyspnea, or pneumonia in the past 6 weeks. No history of respiratory/pulmonary symptoms or problems. Cardiovascular: No history of HTN requiring medication, no history of angina, CHF, MA, cardiac surgery or stents. Denies rest pain, [...] or clotting disorder. Pt is not taking anti-coagulation or platelet medications. No history of hematological [...] voices comprehension and compliance. SIGNATURE: Yvonne Krueger APRN.CNP PATIENT NAME: Guillermo Hernandez DATE: 12/28/2024 TIME: 7:33 AM documented in this encounter [facility] 12-26-2024 Instructions Yvonne Krueger APRN.PALMIRA - 12/26/2024 9:56 AM EDT [facility] Pre-Anesthesia Consultation [facility] PATIENT PREOPERATIVE INSTRUCTIONS Genevieve Merritt MD has scheduled you for your procedure at this surgery center: [facility]: [phone] --[id number] [place] [address]. Please enter through the entrance closest to [...] office. If you are currently using a keic-ppc-vpls injectable or oral medication for diabetes or [...] Procedures: - YOU MUST HAVE A RESPONSIBLE GLOVE WRAPPER TAKE YOU HOME. A BOARD CERTIFIED ARTS THERAPIST OR SHOWER ROOM ATTENDANT CANNOT BE MADE A RESPONSIBLE GLOVE WRAPPER. - We recommend that a responsible person stays with you overnight to take care of you. - You cannot stay in a hotel alone after outpatient surgery. You will not be permitted to have your surgery, if you do not have someone to [...] Advance Directive, please fax a copy to [phone] or email to for it to be added to your chart. If you do not have an Advance Directive, you can find the appropriate form and more information at [email or web address]. We recommend that you complete the Advance Directive form found on the website and bring it with you the day of your surgery. It can be witnessed and scanned into your chart that day. documented in this encounter [facility] 12-12-2024 History of Present illness Narrative RADIOLOGY SERVICE PROGRESS NOTE SERVICE DATE: 12/12/2024 SERVICE TIME: 10:05 AM PATIENT IDENTITY VERIFICATION COMPLETED USING TWO (2) STANDARD IDENTIFIERS: Name and Date of confirmed by patient verbally FALL SCREENING: Has the patient had 2 falls in the last year or 1 fall with injury or currently using an Ambulatory Assistive Device (Walker, Cane, Wheelchair, Crutches, etc.)? No PATIENT GENDER DATA: .male ALLERGIES: Reviewed and updated MEDICATIONS REVIEWED: No PATIENT RELEVANT IMPLANT DATA REVIEWED: Not Applicable PATIENT PRESENTS WITH AN IMPLANTABLE OR ATTACHED APPRAISAL TECHNICIAN: No CREATININE: Creatinine Date Value Ref Range Status 10/12/2024 0.89 0.73 - 1.22 mg/dL Final 06/30/2018 0.97 0.73 - 1.22 mg/dL Final 05/29/2018 1.26 (H) 0.73 - 1.22 mg/dL Final Estimated Glomerular Filtration Rate Date Value Ref Range Status 10/12/2024 103 >=60 mL/min/1.73m Final Comment: Estimated Glomerular Filtration Rate (eGFR) is calculated using the 2020 CKD-EPI creatinine equation. This equation utilizes serum creatinine, sex, and age as parameters. The creatinine assay has traceable calibration to isotope dilution-mass spectrometry. Refer to KDIGO guidelines for clinical interpretation. In patients with unstable renal function, e.g. those with acute kidney injury, the eGFR may not accurately reflect actual GFR. eGFR- Date Value Ref Range Status 06/30/2018 >60 Final P.O.C.T. RESULTS: N/A December 12, [address] PERFORMED: No IV SITE: Ambulatory: Not applicable POST EXAM PIV STATUS: Not applicable PROCEDURE TYPE: NM GET: 1 mCi Tc99m SULFUR COLLOID was administered orally via 4 ounces of Egg Beaters,2 pieces of toast, 1 ounce of jelly with 8 ounces of water orally ADMINISTRATION TIME: 09:54 PATIENT DISCHARGED TO: Ambulatory patient, left [place] department area. Is this a therapy: No A Diagnostic radioactive procedure has taken place, with no further precautions necessary other than routine body substance precautions. More information regarding radiation safety can be found using this link: [email or web address]%20N uclear%20Medicine%20Procedures.[email or web address] df SIGNATURE: RT Marissa(Faisal) PATIENT NAME: Guillermo Hernandez DATE: December 12, 2024 TIME: 10:05 AM PAGER/CONTACT #: documented in this encounter [facility] 12-12-2024 Note HNO ID: [id number] Author: FADY JOYA RT (R) Service: Nuclear Medicine Author Type: Technologist Type: Progress Notes Filed: 12/12/2024 10:06 Note Text: RADIOLOGY SERVICE PROGRESS NOTE SERVICE DATE: 12/12/2024 SERVICE TIME: 10:05 AM PATIENT IDENTITY VERIFICATION COMPLETED USING TWO (2) STANDARD IDENTIFIERS: Name and Date of confirmed by patient verbally FALL SCREENING: Has the patient had 2 falls in the last year or 1 fall with injury or currently using an Ambulatory Assistive Device (Walker, Cane, Wheelchair, Crutches, etc.)? No PATIENT GENDER DATA: .male ALLERGIES: Reviewed and updated MEDICATIONS REVIEWED: No PATIENT RELEVANT IMPLANT DATA REVIEWED: Not Applicable PATIENT PRESENTS WITH AN IMPLANTABLE OR ATTACHED APPRAISAL TECHNICIAN: No CREATININE: Creatinine Date Value Ref Range Status 10/12/2024 0.89 0.73 - 1.22 mg/dL Final 06/30/2018 0.97 0.73 - 1.22 mg/dL Final 05/29/2018 1.26 (H) 0.73 - 1.22 mg/dL Final Estimated Glomerular Filtration Rate Date Value Ref Range Status 10/12/2024 103 >=60 mL/min/1.73m? Final Comment: Estimated Glomerular Filtration Rate (eGFR) is calculated using the 2020 CKD-EPI creatinine equation. This equation utilizes serum creatinine, sex, and age as parameters. The creatinine assay has traceable calibration to isotope dilution-mass spectrometry. Refer to KDIGO guidelines for clinical interpretation. In patients with unstable renal function, e.g. those with acute kidney injury, the eGFR may not accurately reflect actual GFR. eGFR- Date Value Ref Range Status 06/30/2018 >60 Final P.O.C.T. RESULTS: N/A December 12, [address] PERFORMED: No IV SITE: Ambulatory: Not applicable POST EXAM PIV STATUS: Not applicable PROCEDURE TYPE: NM GET: 1 mCi Tc99m SULFUR COLLOID was administered orally via 4 ounces of Egg Beaters,2 pieces of toast, 1 ounce of jelly with 8 ounces of water orally ADMINISTRATION TIME: 09:54 PATIENT DISCHARGED TO: Ambulatory patient, left [place] department area. Is this a therapy: No A Diagnostic radioactive procedure has taken place, with no further precautions necessary other than routine body substance precautions. More information regarding radiation safety can be found using this link: [email or web address] [email or web address]-% 20Diagnostic%20Nuclear%20Medicin e%20Procedures.pdf SIGNATURE: RT Marissa(R) PATIENT NAME: Guillermo Hernandez DATE: December 12, 2024 TIME: 10:05 AM PAGER/CONTACT #: [facility] 12-11-2024 Telephone encounter Note Spoke with patient, confirmed appointment and went over prep [facility] 12-11-2024 Miscellaneous Notes Spoke with patient, confirmed appointment and went over prep documented in this encounter [facility] 12-05-2024 Note HNO ID: [id number] Author: CARMEN ANGUIANO CNMT Service: ? Author Type: Tetryl Blender Operator Type: Progress Notes Filed: 12/05/2024 15:01 Note Text: RADIOLOGY SERVICE PROGRESS NOTE SERVICE DATE: 12/05/2024 SERVICE TIME: 3:00 PM PATIENT IDENTITY VERIFICATION COMPLETED USING TWO (2) STANDARD IDENTIFIERS: Name and Date of confirmed by patient verbally FALL SCREENING: Has the patient had 2 falls in the last year or 1 fall with injury or currently using an Ambulatory Assistive Device (Walker, Cane, Wheelchair, Crutches, etc.)? No PATIENT GENDER DATA: .male ALLERGIES: Reviewed and unchanged MEDICATIONS REVIEWED: Yes PATIENT RELEVANT IMPLANT DATA REVIEWED: Not Applicable PATIENT PRESENTS WITH AN IMPLANTABLE OR ATTACHED APPRAISAL TECHNICIAN: No CREATININE: Creatinine Date Value Ref Range Status 10/12/2024 0.89 0.73 - 1.22 mg/dL Final 06/30/2018 0.97 0.73 - 1.22 mg/dL Final 05/29/2018 1.26 (H) 0.73 - 1.22 mg/dL Final Estimated Glomerular Filtration Rate Date Value Ref Range Status 10/12/2024 103 >=60 mL/min/1.73m? Final Comment: Estimated Glomerular Filtration Rate (eGFR) is calculated using the 2020 CKD-EPI creatinine equation. This equation utilizes serum creatinine, sex, and age as parameters. The creatinine assay has traceable calibration to isotope dilution-mass spectrometry. Refer to KDIGO guidelines for clinical interpretation. In patients with unstable renal function, e.g. those with acute kidney injury, the eGFR may not accurately reflect actual GFR. eGFR- Date Value Ref Range Status 06/30/2018 >60 Final P.O.C.T. RESULTS: N/A December 05, [address] PERFORMED: No IV SITE: Ambulatory: A peripheral IV was started in the Left antecubital site with a Angio cath: 24 gauge. POST EXAM PIV STATUS: Discontinued PROCEDURE TYPE: NM INJECT: NM HEPATOBILIARY W EF. 5.4 mCi Tc99m CHOLETEC. CCK 1.89 micrograms intravenous at 1455. ADMINISTRATION TIME: 1353/1455 PATIENT DISCHARGED TO: Ambulatory patient, left [place] department area. Is this a therapy: No A Diagnostic radioactive procedure has taken place, with no further precautions necessary other than routine body substance precautions. More information regarding radiation safety can be found using this link: [email or web address] [email or web address]-% 20Diagnostic%20Nuclear%20Medicin e%20Procedures.pdf SIGNATURE: LY Tam PATIENT NAME: Guillermo Hernanedz DATE: December 05, 2024 TIME: 3:00 PM PAGER/CONTACT #: [facility] 12-04-2024 Telephone encounter Note Spoke with PT to confirm apt and to explain the exam and any prep. [facility] 12-04-2024 Miscellaneous Notes Spoke with PT to confirm apt and to explain the exam and any prep. documented in this encounter [facility] 11-30-2024 History of Present illness Narrative Images from the original note were not included. PATIENT INFO: Guillermo Hernandez 54 year old REFERRING PROVIDER.: SELF PCP: Rei Ingram DO CC: Nephrolithiasis HPI: Guillermo Hernandez is a 54 year old year old male with a PMH significant for chest pain, CHAY, seizures who presents today for evaluation of nephrolithiasis. No prior hx of nephrolithiasis Initially presented to [facility] ED 10/12/24 with c/o intermittent epigastric discomfort, intermittent shortness of breath, nausea. UA showed no concern for infection. CT demonstrated evidence of 6 mm stone in left upper pole. Today the patient is denies pain, new stone-related symptoms. No family hx of nephrolithiasis. Of note was seen by Dr. Rayo (2018) for pelvic floor muscle spasm.Pain resolved on follow up visit. Creatinine Date Value Ref Range Status 10/12/2024 0.89 0.73 - 1.22 mg/dL Final No results found for: PSA Color (no units) Date Value 10/12/2024 Yellow 05/29/2018 Yellow Clarity (no units) Date Value 10/12/2024 Clear 05/29/2018 Clear Glucose, Urine Date Value 10/12/2024 Negative 05/29/2018 Negative mg/dL Bilirubin, Urine (no units) Date Value 10/12/2024 Negative 05/29/2018 Negative Ketones, Urine (no units) Date Value 10/12/2024 Negative 05/29/2018 Negative Specific [place], Ur (no units) Date Value 10/12/2024 >1.050 05/29/2018 1.008 Hemoglobin/Blood,Ur Date Value 10/12/2024 Negative 05/29/2018 Negative pH, Urine (no units) Date Value 10/12/2024 6.5 05/29/2018 7.0 Protein, Urine Date Value 10/12/2024 1+ 05/29/2018 Negative mg/dL Urobilinogen (no units) Date Value 10/12/2024 Normal 05/29/2018 Normal Nitrites (no units) Date Value 10/12/2024 Negative 05/29/2018 Negative Leukest (no units) Date Value 05/29/2018 Negative Leuk Esterase (no units) Date Value 10/12/2024 Negative ALLERGIES Allergen Reactions Augmentin [Amoxicil* Mental Status Change Lightheadedness Seasonal Allergies Other: See Comments IMAGING: CT ABD/PEL 10/12/24 Kidneys: There are symmetric bilateral nephrograms. In the left upper renal pole there is a 5-6 mm calcification consistent with nephrolithiasis. MEDICATIONS: pantoprazole DR (PROTONIX) 40 mg tablet Take 1 tablet by mouth two times a day before meals. famotidine (PEPCID) 40 mg tablet Take 1 tablet by mouth daily at bedtime. omeprazole (PRILOSEC) 40 mg capsule Take 1 capsule by mouth once daily. sucralfate (CARAFATE) 1 gram tablet Take 1 tablet by mouth before meals and at bedtime. HISTORIES PAST MEDICAL HISTORY Diagnosis Date Acute sinusitis, [...] function is low normal. EF = 54 5% (2D biplane) Baseline left ventricular diastolic [...] 09/29/2009 PAST SURGICAL HISTORY Procedure Laterality Date COLONOSCOPY 07/26/2012 DESTR NULYT PARAVTBRL LMB/SAC NRV 1 LVL 04/28/2010 DESTR NULYT PARAVTBRL LMB/SAC NRV 1 LVL 05/05/2010 DESTR NULYT PARAVTBRL LMB/SAC NRV EA LVL 05/05/2010 EGD 07/26/2012 EGD DIAGNOSTIC 10/2024 LAMINECTOMY W/O FFD / VERT SEG LUMBAR 08/15/2002 PAST SURGICAL HISTORY OF 08/15/2007 metal removed from the knee - right PAST SURGICAL HISTORY OF 08/15/2009 [facility] FAMILY HISTORY Problem Relation Age of Onset Thyroid Mother cancer dx at age 60 Arthritis Mother Hypertension Mother Cancer Father non Hodgkin's lymphoma Heart Paternal Grandmother pacemaker Heart Paternal Grandfather heart surgery Cancer Paternal Grandfather Prostate Colon Cancer No Family History Social History Tobacco Use Smoking status: Never Smokeless tobacco: Never Substance Use Topics Alcohol use: No Drug use: No Comment: NO PAST USE REVIEW OF SYSTEMS GENERAL: No fever, chills, weight loss, or fatigue. HEAD & NECK: No blurred vision, cataracts, or hearing loss. CARDIOVASCULAR: NO CHEST PAIN, PALPITATIONS, ANKLE EDEMA RESPIRATORY: No chronic cough, wheezing, dyspnea, hemoptysis. GENITOURINARY: as above GI: Negative for abdominal discomfort or fecal incontinence PHYSICAL EXAMINATION Wt 94.3 kg (208 lb) BMI 25.32 kg/m General appearance: Well appearing, alert, in no acute distress, and well-hydrated, well nourished Skin: Skin color, texture, turgor normal, no suspicious rashes or lesions Head: Normocephalic, no masses, lesions, tenderness or abnormalities RESP: Normal effort, no retractions or purse-lip breathing. Genitourinary: MALE EXAM: Exam NOT Indicated ASSESSMENT 1. Calculus of kidney - ICD9: 592.0, ICD10: N20.0 Guillermo F Gundlach is a 54 year old year old male who presents today for evaluation of nephrolithiasis. Today the patient is denies pain, new stone-related symptoms. No family hx of nephrolithiasis. Mutually reviewed CT images from 10/12/24. With L sided ~5 mm nonobstructive stone. ~600 HU. PLAN OF MANAGEMENT: Treatment options disucssed: Observation: Symptoms: SWL: Needs to be seen clearly on plain radiograph. 600 HU. URS: Best chance for stone free rate, may need pre-stent if unable to advance scope into the ureter. Risk is 10% for non stented ureter. Risks and benefits discussed: bleeding, infection, injury to the ureter or kidney, sepsis, staged procedure, prolonged stent, stent discomfort. Ureteral stricture (1%, higher in impacted stones), additional procedures. After a discussion, the patient elected for L ureteroscopy with laser lithotripsy. Needs a urine culture 7-10 days before date of surgery. Discussed generalized dietary modifications for stone prevention. -L URS -Urine culture 7-10 days before date of procedure. -Consult to Dipesh Maxwell PA-C for personalized stone prevention counseling, metabolic work up (stone-risk profile). Patient to call or present to the ER if : Fever more than 101.5F Flank or abdominal pain Decreased urine output Unable to void Not feeling well Blood in urine My final recommendations will be communicated back to the requesting physician by way of shared Medical record or letter to requesting physician via US mail. The patient is seen and examined by Dr. Genevieve Merritt and the following reflects his service. Scribed by Michael Marcelino. I agree with the Chief Complaint, ROS, and Past Histories independently gathered by the clinical legal support analyst and the remaining scribed note accurately describes my personal service to the patient. This note was partially generated using [employer] voice recognition system. Genevieve Merritt MD documented in this encounter [facility] 11-30-2024 Note HNO ID: [id number] Author: GENEVIEVE MERRITT MD Service: ? Author Type: Physician Type: Progress Notes Filed: 11/30/2024 11:32 Note Text: PATIENT INFO: Guillermo Hernandez 54 year old REFERRING PROVIDER.: SELF PCP: Rei Ingram DO CC: Nephrolithiasis HPI: Guillermo Hernandez is a 54 year old year old male with a PMH significant for chest pain, CHAY, seizures who presents today for evaluation of nephrolithiasis. No prior hx of nephrolithiasis Initially presented to [facility] ED 10/12/24 with c/o intermittent epigastric discomfort, intermittent shortness of breath, nausea. UA showed no concern for infection. CT demonstrated evidence of 6 mm stone in left upper pole. Today the patient is denies pain, new stone-related symptoms. No family hx of nephrolithiasis. Of note was seen by Dr. Rayo (2018) for pelvic floor muscle spasm.Pain resolved on follow up visit. Creatinine Date Value Ref Range Status 10/12/2024 0.89 0.73 - 1.22 mg/dL Final No results found for: PSA Color (no units) Date Value 10/12/2024 Yellow 05/29/2018 Yellow Clarity (no units) Date Value 10/12/2024 Clear 05/29/2018 Clear Glucose, Urine Date Value 10/12/2024 Negative 05/29/2018 Negative mg/dL Bilirubin, Urine (no units) Date Value 10/12/2024 Negative 05/29/2018 Negative Ketones, Urine (no units) Date Value 10/12/2024 Negative 05/29/2018 Negative Specific [place], Ur (no units) Date Value 10/12/2024 >1.050 05/29/2018 1.008 Hemoglobin/Blood,Ur Date Value 10/12/2024 Negative 05/29/2018 Negative pH, Urine (no units) Date Value 10/12/2024 6.5 05/29/2018 7.0 Protein, Urine Date Value 10/12/2024 1+ 05/29/2018 Negative mg/dL Urobilinogen (no units) Date Value 10/12/2024 Normal 05/29/2018 Normal Nitrites (no units) Date Value 10/12/2024 Negative 05/29/2018 Negative Leukest (no units) Date Value 05/29/2018 Negative Leuk Esterase (no units) Date Value 10/12/2024 Negative ALLERGIES Allergen Reactions Augmentin [Amoxicil* Mental Status Change Lightheadedness Seasonal Allergies Other: See Comments IMAGING: CT ABD/PEL 10/12/24 Kidneys: There are symmetric bilateral nephrograms. In the left upper renal pole there is a 5-6 mm calcification consistent with nephrolithiasis. MEDICATIONS: pantoprazole DR (PROTONIX) 40 mg tablet Take 1 tablet by mouth two times a day before meals. famotidine (PEPCID) 40 mg tablet Take 1 tablet by mouth daily at bedtime. omeprazole (PRILOSEC) 40 mg capsule Take 1 capsule by mouth once daily. sucralfate (CARAFATE) 1 gram tablet Take 1 tablet by mouth before meals and at bedtime. HISTORIES PAST MEDICAL HISTORY Diagnosis Date Acute sinusitis, [...] function is low normal. EF = 54 ? 5% (2D biplane) Baseline left ventricular diastolic [...] 09/29/2009 PAST SURGICAL HISTORY Procedure Laterality Date COLONOSCOPY 07/26/2012 DESTR NULYT PARAVTBRL LMB/SAC NRV [...] Grandfather Prostate Colon Cancer No Family History Social History Tobacco Use Smoking status: Never Smokeless tobacco: Never Substance Use Topics Alcohol use: No Drug use: No Comment: NO PAST USE REVIEW OF SYSTEMS GENERAL: No fever, chills, weight loss, or fatigue. HEAD AND NECK: No blurred vision, cataracts, or hearing loss. CARDIOVASCULAR: NO CHEST PAIN, PALPITATIONS, ANKLE EDEMA RESPIRATORY: No chronic cough, wheezing, dyspnea, hemoptysis. GENITOU (more content not included)... [facility] 11-23-2024 History of Present illness Narrative Radiology Service Progress Note PATIENT NAME: Guillermo Hernandez DATE OF SERVICE: November 23, 2024 TIME: 2:58 PM PATIENT IDENTITY VERIFICATION COMPLETED USING TWO (2) IDENTIFIERS: Name and Date of confirmed by patient verbally and Name and Date of confirmed by identification band. FALL SCREENING: Has the patient had 2 falls in the last year or 1 fall with injury or currently using an Ambulatory Assistive Device (Walker, Cane, Wheelchair, Crutches, etc.)? No PATIENT GENDER DATA: Assigned male at PATIENT RELEVANT IMPLANT DATA REVIEWED: Not Applicable PATIENT PRESENTS WITH AN IMPLANTABLE OR ATTACHED APPRAISAL TECHNICIAN: No RADIOLOGY DEPARTMENT: General X-ray: Exam(s) Completed: GI/ Procedure(s): Upper GI with small bowel with barium contrast PERIPHERAL IV DATA: Not applicable SIGNED BY: RT Jemma(R) November 23, 2024 2:58 PM documented in this encounter [facility] 11-23-2024 Note HNO ID: [id number] Author: LAURA RUELAS RT(R) Service: Radiology Author Type: Technologist Type: Progress Notes Filed: 11/23/2024 14:59 Note Text: Radiology Service Progress Note PATIENT NAME: Guillermo Hernandez DATE OF SERVICE: November 23, 2024 TIME: 2:58 PM PATIENT IDENTITY VERIFICATION COMPLETED USING TWO (2) IDENTIFIERS: Name and Date of confirmed by patient verbally and Name and Date of confirmed by identification band. FALL SCREENING: Has the patient had 2 falls in the last year or 1 fall with injury or currently using an Ambulatory Assistive Device (Walker, Cane, Wheelchair, Crutches, etc.)? No PATIENT GENDER DATA: Assigned male at PATIENT RELEVANT IMPLANT DATA REVIEWED: Not Applicable PATIENT PRESENTS WITH AN IMPLANTABLE OR ATTACHED APPRAISAL TECHNICIAN: No RADIOLOGY DEPARTMENT: General X-ray: Exam(s) Completed: GI/ Procedure(s): Upper GI with small bowel with barium contrast PERIPHERAL IV DATA: Not applicable SIGNED BY: RT Jemma(R) November 23, 2024 2:58 PM [facility] 11-22-2024 History of Present illness Narrative DEPARTMENT OF GASTROENTEROLOGY - NEW PATIENT/CONSULT REASON FOR VISIT Guillermo Hernandez is a 54 year old male who is scheduled ED consult epigastric pain HISTORY OF PRESENT ILLNESS Guillermo Hernandez is a 54 year old male who presents today for an evaluation of ED consult epigastric pain. Patient reports in October 2024 he was sick and he stopped up to vomit into a butler that he turned and he felt like something ripped Varsha crossed his epigastric upper abdominal region. He presented to the ED at that time and had a CT scan that did not reveal any acute abdominal pelvic process. He subsequently underwent upper endoscopy with Dr. Waters which noted LA grade A esophagitis. He was started on omeprazole and Carafate. This was 1 month ago. He has not noticed that symptoms have improved significantly. He reports when he eats now he feels he gets full very quickly and like something is pressing up against his abdomen. He also reports he feels short of breath and like he cannot breathe when he eats too much. He is eating soups and smaller meals. Pertinent Recent/Past Workup: EGD 10/2024 DR. Waters - Z-line regular, 42 cm from the incisors. - LA Grade A reflux esophagitis with no bleeding. - Granular, punctate white spotted mucosa in the esophagus. Biopsied - Normal stomach. Biopsied. - Normal duodenal bulb, first portion of the duodenum, second portion of the duodenum and major papilla. - Biopsies were taken with a cold forceps for evaluation of eosinophilic esophagitis. Recommendation: - Discharge patient to home (ambulatory). - Patient has a contact number available for emergencies. The signs and symptoms of potential delayed complications were discussed with the patient. Return to normal activities tomorrow. Written discharge instructions were provided to the patient. - No finding to explain patient's symptoms. - Await pathology results. - Resume previous diet. - Use Prilosec (omeprazole) 20 mg PO daily. - Continue present medications. - The findings and recommendations were discussed with the patient. A. Stomach, biopsy: - Antral and fundic mucosa with minimal chronic inflammation. - No evidence of H. pylori. B. Distal esophagus, biopsy: - Mildly reactive squamous mucosa; no evidence of eosinophilic esophagitis. C. Proximal esophagus, biopsy: - Mildly reactive squamous mucosa; no evidence of eosinophilic esophagitis. Last colonoscopy 09/2024 CT a/p w/ IV con IMPRESSION: 1. New hepatic hypodensities favor representing a cyst. 2. Nonobstructive left nephrolithiasis. 3. Tarlov cyst in the sacrum. This should be of no consequence. I have personally reviewed labs, current medication, allergies, PMH, PSH, family history and social history. Pertinent information has been listed above. Denies Family Hx CRC, IBD Denies Smoking, illicits, NSAIDs, etoh PAST MEDICAL HISTORY Diagnosis Date Acute sinusitis, [...] function is low normal. EF = 54 5% (2D biplane) Baseline left ventricular diastolic [...] of neck 09/02/2010 Unspecified sinusitis (chronic) 09/29/2009 Allergies: Augmentin [Amoxicil* Mental Status Change Comment:Lightheadedness Seasonal Allergies Other: See Comments Current Outpatient Medications Medication Sig Dispense Refill omeprazole (PRILOSEC) 40 mg capsule Take 1 capsule by mouth once daily. 30 capsule 5 sucralfate (CARAFATE) 1 gram tablet Take 1 tablet by mouth before meals and at bedtime. 120 tablet 1 No current facility-administered medications for this visit. PAST SURGICAL HISTORY Procedure Laterality Date COLONOSCOPY 07/26/2012 DESTR NULYT PARAVTBRL LMB/SAC NRV 1 LVL 04/28/2010 DESTR NULYT PARAVTBRL LMB/SAC NRV 1 LVL 05/05/2010 DESTR NULYT PARAVTBRL LMB/SAC NRV EA LVL 05/05/2010 EGD 07/26/2012 EGD DIAGNOSTIC 10/2024 LAMINECTOMY W/O FFD 1/2 VERT SEG LUMBAR 08/15/2002 PAST SURGICAL HISTORY OF 08/15/2007 metal removed from the knee - right PAST SURGICAL HISTORY OF 08/15/2009 UPPP Social History Tobacco Use Smoking status: Never Smokeless tobacco: Never Substance Use Topics Alcohol use: No Drug use: No Comment: NO PAST USE FAMILY HISTORY Problem Relation Age of Onset Thyroid Mother cancer dx at age 60 Arthritis Mother Hypertension Mother Cancer Father non Hodgkin's lymphoma Heart Paternal Grandmother pacemaker Heart Paternal Grandfather heart surgery Cancer Paternal Grandfather Prostate Colon Cancer No Family History REVIEW OF SYSTEMS Cardiovascular: No chest pain Respiratory: Negative for cough, wheezing and shortness of breath Gastrointestinal : See above PHYSICAL EXAMINATION BP 133/54 Pulse 78 Ht 193 cm (6' 4 ) Wt 93.6 kg (206 lb 5.6 oz) BMI 25.12 kg/m Constitutional: well nourished, well appearing. NAD. Alert and cooperative Skin: no jaundice Eyes: anicteric, normal conjunctiva ENT: MMM Pulmonary: easy and nonlabored on RA Abdomen: soft, +ttp epigastic, ND. No ascites. MSK: MAEx4 Extremities: no edema Neuro: aaox3. No asterixis. Psych: appropriate mood and behavior Relevant Results Lab Results Component Value Date WBC 5.04 10/12/2024 HCT 50.1 10/12/2024 MCV 89.8 10/12/2024 PLT 178 10/12/2024 Lab Results Component Value Date NA 139 10/12/2024 K 4.8 10/12/2024 CO2 25 10/12/2024 BUN 14 10/12/2024 Lab Results Component Value Date ALT 24 10/12/2024 AST 20 10/12/2024 ALKPHOS 140 (H) 10/12/2024 Assessment IMPRESSION Mr. Hernandez is a 54 year old male with a history of allergic rhinitis presents to GI clinic for evaluation epigatric pain. Possibly MSK given feeling SOB with eating, however will r/o underlying gastroparesis, abnormality in esophagus/upper GI tract, HIDA Scan to assess GB PLAN SBFT w/ upper GI GES HIDA Is due for screening colonoscopy; will allow current symptoms to improve prior to attempting colonoscopy prep Alcira Alatorre PA-C documented in this encounter [facility] 11-22-2024 Note HNO ID: [id number] Author: ALCIRA ALATORRE PA-C Service: ? Author Type: Physician Hris Specialist Type: Progress Notes Filed: 11/22/2024 13:13 Note Text: DEPARTMENT OF GASTROENTEROLOGY - NEW PATIENT/CONSULT REASON FOR VISIT Guillermo Hernandez is a 54 year old male who is scheduled ED consult epigastric pain HISTORY OF PRESENT ILLNESS Guillermo Hernandez is a 54 year old male who presents today for an evaluation of ED consult epigastric pain. Patient reports in October 2024 he was sick and he stopped up to vomit into a butler that he turned and he felt like something ripped Varsha crossed his epigastric upper abdominal region. He presented to the ED at that time and had a CT scan that did not reveal any acute abdominal pelvic process. He subsequently underwent upper endoscopy with Dr. Waters which noted LA grade A esophagitis. He was started on omeprazole and Carafate. This was 1 month ago. He has not noticed that symptoms have improved significantly. He reports when he eats now he feels he gets full very quickly and like something is pressing up against his abdomen. He also reports he feels short of breath and like he cannot breathe when he eats too much. He is eating soups and smaller meals. Pertinent Recent/Past Workup: EGD 10/2024 DR. Waters - Z-line regular, 42 cm from the incisors. - LA Grade A reflux esophagitis with no bleeding. - Granular, punctate white spotted mucosa in the esophagus. Biopsied - Normal stomach. Biopsied. - Normal duodenal bulb, first portion of the duodenum, second portion of the duodenum and major papilla. - Biopsies were taken with a cold forceps for evaluation of eosinophilic esophagitis. Recommendation: - Discharge patient to home (ambulatory). - Patient has a contact number available for emergencies. The signs and symptoms of potential delayed complications were discussed with the patient. Return to normal activities tomorrow. Written discharge instructions were provided to the patient. - No finding to explain patient's symptoms. - Await pathology results. - Resume previous diet. - Use Prilosec (omeprazole) 20 mg PO daily. - Continue present medications. - The findings and recommendations were discussed with the patient. A. Stomach, biopsy: - Antral and fundic mucosa with minimal chronic inflammation. - No evidence of H. pylori. B. Distal esophagus, biopsy: - Mildly reactive squamous mucosa; no evidence of eosinophilic esophagitis. C. Proximal esophagus, biopsy: - Mildly reactive squamous mucosa; no evidence of eosinophilic esophagitis. Last colonoscopy 09/2024 CT a/p w/ IV con IMPRESSION: 1. New hepatic hypodensities favor representing a cyst. 2. Nonobstructive left nephrolithiasis. 3. Tarlov cyst in the sacrum. This should be of no consequence. I have personally reviewed labs, current medication, allergies, PMH, PSH, family history and social history. Pertinent information has been listed above. Denies Family Hx CRC, IBD Denies Smoking, illicits, NSAIDs, etoh PAST MEDICAL HISTORY Diagnosis Date Acute sinusitis, [...] function is low normal. EF = 54 ? 5% (2D biplane) Baseline left ventricular diastolic [...] of neck 09/02/2010 Unspecified sinusitis (chronic) 09/29/2009 Allergies: Augmentin [Amoxicil* Mental Status Change Comment:Lightheadedness Seasonal Allergies Other: See Comments Current Outpatient Medications Medication Sig Dispense Refill omeprazole (PRILOSEC) 40 mg capsule Take 1 capsule by mouth once daily. 30 capsule 5 sucralfate (CARAFATE) 1 gram tablet Take 1 tablet by mouth before meals and at bedtime. 120 tablet 1 No current facility-administered medications for this visit. PAST SURGICAL HISTORY Procedure Laterality Date COLONOSCOPY 07/26/2012 DESTR NULYT PARAVTBRL LMB/SAC NRV 1 LVL 04/28/2010 DESTR NULYT PARAVTBRL LMB/SAC NRV 1 LVL 05/05/2010 DESTR NULYT PARAVTBRL LMB/SAC NRV EA LVL 05/05/2010 EGD 07/26/2012 EGD DIAGNOSTIC 10/2024 LAMINECTOMY W/O FFD 1/2 VERT SEG LUMBAR 08/15/2002 PAST SURGICAL HISTORY OF 08/15/2007 metal removed from the knee (more content not included)... [facility] 11-01-2024 Telephone encounter Note Patient aware of results and/or instructions per Dr. Carmichael. Radha Reina RN [facility] 11-01-2024 Miscellaneous Notes Patient aware of results and/or instructions per Dr. Carmichael. Radha Reina RN ----- Message from Aurora Carmichael MD sent at 11/01/2024 1:28 PM EDT ----- Please inform patient normal gastric and esophageal biopsies. Continue prilosec 20 daily. Please inform patient normal gastric and esophageal biopsies. Continue prilosec 20 daily. documented in this encounter [facility] 11-01-2024 Telephone encounter Note ----- Message from Auroar Carmichael MD sent at 11/01/2024 1:28 PM EDT ----- Please inform patient normal gastric and esophageal biopsies. Continue prilosec 20 daily. [facility] 11-01-2024 Progress note Formatting of t his note might be different from the original. Please inform patient normal gastric and esophageal biopsies. Continue prilosec 20 daily. [facility] Work Phone: 10-29-2024 Nurse Note POST OP LEARNING RESPONSE INSTRUCTION PROVIDED TO: Patient METHOD OF INSTRUCTION: Individual instruction Written instruction/Handouts Verbal instruction PATIENT / FAMILY RESPONSE: Information received as demonstrated by interest and questions FOLLOW-UP PLAN: Patient instructed to call with any further issues Recommend - Recommend continued instruction and follow up as directed SUPPLEMENTAL MATERIAL: None REFERRAL (RECOMMENDATION): None Electronically Signed By: Janell Reyes RN In Department: AMBULATORY SURGERY [facility] 10-29-2024 Nurse Note POST OP LEARNING RESPONSE INSTRUCTION PROVIDED TO: Patient METHOD OF INSTRUCTION: Individual instruction Written instruction/Handouts Verbal instruction PATIENT / FAMILY RESPONSE: Information received as demonstrated by interest and questions FOLLOW-UP PLAN: Patient instructed to call with any further issues Recommend - Recommend continued instruction and follow up as directed SUPPLEMENTAL MATERIAL: None REFERRAL (RECOMMENDATION): None Electronically Signed By: Janell Reyes RN In Department: AMBULATORY SURGERY PRE OP LEARNING ASSESSMENT PROCEDURE/SURGERY: GI PROCEDURES: EGD READINESS TO LEARN COGNITIVE ABILITY: Alert and oriented MOTIVATION TO LEARN: Interested FAMILY SUPPORT: Unable to assess - Family not present PATIENT LEARNS BEST BY: Written Instruction - Hand-outs Verbal Instruction FACTORS AFFECTING LEARNING: None PHYSICAL LIMITATIONS AFFECTING LEARNING: None Electronically Signed By: Maci Nash RN In Department: AMBULATORY SURGERY documented in this encounter [facility] 10-29-2024 History and physical note ENDO HISTORY AND PHYSICAL EXAMINATION SHORT FORM EVALUATION DATE: 10/29/2024 EVALUATION TIME: 12:31 PM CHIEF COMPLAINT: Abdominal Pain HPI: This is a 54 year old male who presents with Abdominal Pain and unintentional weight loss. PAST MEDICAL HISTORY: PAST MEDICAL HISTORY Diagnosis Date Acute sinusitis, [...] function is low normal. EF = 54 5% (2D biplane) Baseline left ventricular diastolic [...] 09/02/2010 Unspecified sinusitis (chronic) 09/29/2009 PAST SURGICAL HISTORY: PAST SURGICAL HISTORY Procedure Laterality Date COLONOSCOPY 07/26/12 DESTR NULYT PARAVTBRL LMB/SAC NRV 1 LVL 04/28/10 DESTR NULYT PARAVTBRL LMB/SAC NRV 1 LVL 05/05/10 DESTR NULYT PARAVTBRL LMB/SAC NRV EA LVL 05/05/10 EGD 07/26/12 LAMINECTOMY W/O FFD 08/16 VERT SEG LUMBAR 2002 PAST SURGICAL HISTORY OF 2007 metal removed from the knee - right PAST SURGICAL HISTORY OF 2009 UPPP SOCIAL HISTORY: Social History Tobacco Use Smoking status: Never Smokeless tobacco: Never Substance Use Topics Alcohol use: No Drug use: No Comment: NO PAST USE FAMILY HISTORY: FAMILY HISTORY Problem Relation Age of Onset Cancer Father non Hodgkin's lymphoma Heart Paternal Grandmother pacemaker Heart Paternal Grandfather heart surgery Cancer Paternal Grandfather Prostate Thyroid Mother cancer dx at age 60 Arthritis Mother Hypertension Mother ALLERGIES: ALLERGIES Allergen Reactions Augmentin [Amoxicil* Mental Status Change Lightheadedness Seasonal Allergies Other: See Comments MEDICATIONS: Prior to Admission Medications: omeprazole (PRILOSEC) 40 mg capsule Take 1 capsule by mouth once daily. sucralfate (CARAFATE) 1 gram tablet Take 1 tablet by mouth before meals and at bedtime. No current facility-administered medications for this encounter. REVIEW OF SYSTEMS: Respiratory: Negative for smoking, dyspnea, cough, asthma, bronchitis, emphysema Cardiovascular: Negative for chest pain, leg swelling or palpitations. GI: See HPI PHYSICAL EXAM: No data found. General Appearance: well appearing, alert, in no acute distress Lungs: Lungs clear to auscultation. No wheezing, rhonchi, rales. Heart: RRR without murmur, gallop, or rubs. No ectopy PLAN OF TREATMENT: Esophagogastroduodenoscopy (EGD) SIGNATURE: Aurora Carmichael MD PATIENT NAME: Guillemro Hernandez DATE: October 29, 2024 TIME: 12:31 PM [facility] Work Phone: 10-29-2024 History and physical note ENDO HISTORY AND PHYSICAL EXAMINATION SHORT FORM EVALUATION DATE: 10/29/2024 EVALUATION TIME: 12:31 PM CHIEF COMPLAINT: Abdominal Pain HPI: This is a 54 year old male who presents with Abdominal Pain and unintentional weight loss. PAST MEDICAL HISTORY: PAST MEDICAL HISTORY Diagnosis Date Acute sinusitis, [...] function is low normal. EF = 54 5% (2D biplane) Baseline left ventricular diastolic [...] 09/02/2010 Unspecified sinusitis (chronic) 09/29/2009 PAST SURGICAL HISTORY: PAST SURGICAL HISTORY Procedure Laterality Date COLONOSCOPY 07/26/12 DESTR NULYT PARAVTBRL LMB/SAC NRV 1 LVL 04/28/10 DESTR NULYT PARAVTBRL LMB/SAC NRV 1 LVL 05/05/10 DESTR NULYT PARAVTBRL LMB/SAC NRV EA LVL 05/05/10 EGD 07/26/12 LAMINECTOMY W/O FFD / VERT SEG LUMBAR 2002 PAST SURGICAL HISTORY OF 2007 metal removed from the knee - right PAST SURGICAL HISTORY OF 2009 UP SOCIAL HISTORY: Social History Tobacco Use Smoking status: Never Smokeless tobacco: Never Substance Use Topics Alcohol use: No Drug use: No Comment: NO PAST USE FAMILY HISTORY: FAMILY HISTORY Problem Relation Age of Onset Cancer Father non Hodgkin's lymphoma Heart Paternal Grandmother pacemaker Heart Paternal Grandfather heart surgery Cancer Paternal Grandfather Prostate Thyroid Mother cancer dx at age 60 Arthritis Mother Hypertension Mother ALLERGIES: ALLERGIES Allergen Reactions Augmentin [Amoxicil* Mental Status Change Lightheadedness Seasonal Allergies Other: See Comments MEDICATIONS: Prior to Admission Medications: omeprazole (PRILOSEC) 40 mg capsule Take 1 capsule by mouth once daily. sucralfate (CARAFATE) 1 gram tablet Take 1 tablet by mouth before meals and at bedtime. No current facility-administered medications for this encounter. REVIEW OF SYSTEMS: Respiratory: Negative for smoking, dyspnea, cough, asthma, bronchitis, emphysema Cardiovascular: Negative for chest pain, leg swelling or palpitations. GI: See HPI PHYSICAL EXAM: No data found. General Appearance: well appearing, alert, in no acute distress Lungs: Lungs clear to auscultation. No wheezing, rhonchi, rales. Heart: RRR without murmur, gallop, or rubs. No ectopy PLAN OF TREATMENT: Esophagogastroduodenoscopy (EGD) SIGNATURE: Aurora Carmichael MD PATIENT NAME: Guillermo Hernandez DATE: October 29, 2024 TIME: 12:31 PM documented in this encounter [facility] 10-29-2024 Nurse Note PRE OP LEARNING ASSESSMENT PROCEDURE/SURGERY: GI PROCEDURES: EGD READINESS TO LEARN COGNITIVE ABILITY: Alert and oriented MOTIVATION TO LEARN: Interested FAMILY SUPPORT: Unable to assess - Family not present PATIENT LEARNS BEST BY: Written Instruction - Hand-outs Verbal Instruction FACTORS AFFECTING LEARNING: None PHYSICAL LIMITATIONS AFFECTING LEARNING: None Electronically Signed By: Maci Nash RN In Department: AMBULATORY SURGERY [facility] 10-23-2024 Note HNO ID: [id number] Author: REI INGRAM, DO Service: ? Author Type: Physician Type: Progress Notes Filed: 10/23/2024 14:01 Note Text: This note was created using NoteWriter. Subjective Guillermo Hernandez is a 54 year old male. HPI Patient has been seen since 2019 Seen in ED end of September for upper abdominal pain and shortness of breath CT abdomen pelvis and chest no acute process. Nonobstructive left kidney stone. Hepatic densities suspect cyst. Small hiatal hernia No improvement of sx with GI cocktail. He states when he eats, he has severe abdominal pain since September. If he eats, he gets a lump in his throat, making it difficulty for him to eat. He is able to tolerate a small amount of eggs, ice cream, and liquids. He had an episode of vomiting on Oct.02. Then developed abdominal pain and inability to have a bowel movement. He has lost 12 lbs in the past 3 weeks because he has stopped eating. He is able to have a bowel movement. He is waking up in the middle of the night catching his breath if he eats too close to bedtime. Has upcoming appointment with GI next month. He is complaining of SOB with walking since vomiting on . Eating escalates it. He gets chest pain only with eating. Nonobstructing kidney stone. Reports no flank pain or difficulty with urination. Review of Systems All other systems reviewed and are negative. Objective There were no vitals taken for this visit. Physical Exam Constitutional: General: He is not in acute distress. Appearance: Normal appearance. HENT: Head: Normocephalic and atraumatic. Cardiovascular: Rate and Rhythm: Normal rate and regular rhythm. Heart sounds: Normal heart sounds. Pulmonary: Effort: Pulmonary effort is normal. Breath sounds: Normal breath sounds. Abdominal: General: Bowel sounds are normal. There is no distension. Palpations: Abdomen is soft. Tenderness: There is abdominal tenderness (epigastric). Musculoskeletal: Right lower leg: No edema. Left lower leg: No edema. Skin: General: Skin is warm and dry. Capillary Refill: Capillary refill takes less than 2 seconds. Neurological: Mental Status: He is alert and oriented to person, place, and time. Psychiatric: Mood and Affect: Mood normal. Behavior: Behavior normal. Thought Content: Thought content normal. Judgment: Judgment normal. Assessment and Plan ASSESSMENT/PLAN: 1. Epigastric pain - ICD9: 789.06, ICD10: R10.13 (primary diagnosis) CT showing small hiatal hernia. Pt has lost 12 lbs in 2 weeks due to decreased appetite secondary to pain and SOB associated with eating. Start Prilosec and Carafate. EGD for further evaluation. Pt has GI follow up scheduled in November. - EGD DIAGNOSTIC - OMEPRAZOLE 40 MG CAPSULE,DELAYED RELEASE - SUCRALFATE 1 GRAM TABLET 2. SOB (shortness of breath) - ICD9: 786.05, ICD10: R06.02 Cardiac testing unrevealing in ED. Pt continues to have SOB with exertion, but also exacerbated with eating. EKG in office today to confirm no active cardiac etiology. - ECG COMPLETE Lyubov Figueroa PA-C Attending Note I have personally performed a face to face assessment of the patient and have reviewed the JAYDEN note. I performed a substantive portion of the visit including all aspects of the following. My knight findings include: Medical Decision Making reviewed and confirmed with patient. Management plan as above. Other additions or changes: As edited Signature: Rei Ingram DO Date: 10/23/2024 Time: 1:59 PM [facility] 10-23-2024 History of Present illness Narrative This note was created using Sportodyriter. Subjective Guillermo Hernandez is a 54 year old male. HPI Patient has been seen since 2019 Seen in ED end of September for upper abdominal pain and shortness of breath CT abdomen pelvis and chest no acute process. Nonobstructive left kidney stone. Hepatic densities suspect cyst. Small hiatal hernia No improvement of sx with GI cocktail. He states when he eats, he has severe abdominal pain since September. If he eats, he gets a lump in his throat, making it difficulty for him to eat. He is able to tolerate a small amount of eggs, ice cream, and liquids. He had an episode of vomiting on Oct.02. Then developed abdominal pain and inability to have a bowel movement. He has lost 12 lbs in the past 3 weeks because he has stopped eating. He is able to have a bowel movement. He is waking up in the middle of the night catching his breath if he eats too close to bedtime. Has upcoming appointment with GI next month. He is complaining of SOB with walking since vomiting on . Eating escalates it. He gets chest pain only with eating. Nonobstructing kidney stone. Reports no flank pain or difficulty with urination. Review of Systems All other systems reviewed and are negative. Objective There were no vitals taken for this visit. Physical Exam Constitutional: General: He is not in acute distress. Appearance: Normal appearance. HENT: Head: Normocephalic and atraumatic. Cardiovascular: Rate and Rhythm: Normal rate and regular rhythm. Heart sounds: Normal heart sounds. Pulmonary: Effort: Pulmonary effort is normal. Breath sounds: Normal breath sounds. Abdominal: General: Bowel sounds are normal. There is no distension. Palpations: Abdomen is soft. Tenderness: There is abdominal tenderness (epigastric). Musculoskeletal: Right lower leg: No edema. Left lower leg: No edema. Skin: General: Skin is warm and dry. Capillary Refill: Capillary refill takes less than 2 seconds. Neurological: Mental Status: He is alert and oriented to person, place, and time. Psychiatric: Mood and Affect: Mood normal. Behavior: Behavior normal. Thought Content: Thought content normal. Judgment: Judgment normal. Assessment and Plan ASSESSMENT/PLAN: 1. Epigastric pain - ICD9: 789.06, ICD10: R10.13 (primary diagnosis) CT showing small hiatal hernia. Pt has lost 12 lbs in 2 weeks due to decreased appetite secondary to pain and SOB associated with eating. Start Prilosec and Carafate. EGD for further evaluation. Pt has GI follow up scheduled in November. - EGD DIAGNOSTIC - OMEPRAZOLE 40 MG CAPSULE,DELAYED RELEASE - SUCRALFATE 1 GRAM TABLET 2. SOB (shortness of breath) - ICD9: 786.05, ICD10: R06.02 Cardiac testing unrevealing in ED. Pt continues to have SOB with exertion, but also exacerbated with eating. EKG in office today to confirm no active cardiac etiology. - ECG COMPLETE Lyubov Figueroa PA-C Attending Note I have personally performed a face to face assessment of the patient and have reviewed the JAYDEN note. I performed a substantive portion of the visit including all aspects of the following. My knight findings include: Medical Decision Making reviewed and confirmed with patient. Management plan as above. Other additions or changes: As edited Signature: Rei Ingram DO Date: 10/23/2024 Time: 1:59 PM documented in this encounter [facility] 10-12-2024 Note HNO ID: [id number] Author: OWEN WILLETT RT(R) Service: ? Author Type: Technologist Type: Progress Notes Filed: 10/12/2024 12:41 Note Text: Radiology Service Progress Note PATIENT NAME: Guillermo Hernandez DATE OF SERVICE: October 12, 2024 TIME: 12:20 PM PATIENT IDENTITY VERIFICATION COMPLETED USING TWO (2) IDENTIFIERS: Name and Date of confirmed by patient verbally and Name and Date of confirmed by identification band. FALL SCREENING: Has the patient had 2 falls in the last year or 1 fall with injury or currently using an Ambulatory Assistive Device (Walker, Cane, Wheelchair, Crutches, etc.)? Emergency Room Patient: Screened in ED PATIENT GENDER DATA: Assigned male at PATIENT RELEVANT IMPLANT DATA REVIEWED: Not Applicable PATIENT PRESENTS WITH AN IMPLANTABLE OR ATTACHED APPRAISAL TECHNICIAN: No RADIOLOGY DEPARTMENT: CT; Exam(s) Completed: Abdomen/Pelvis and PE Study PERIPHERAL IV DATA: Not applicable SIGNED BY: RT Sarai(Faisal) October 12, 2024 12:20 PM [facility] 10-12-2024 Note SARS-COV-2 (AGENT OF COVID-19) RNA: Not detected INFLUENZA A RNA: Not detected INFLUENZA B RNA: Not detected RESPIRATORY SYNCYTIAL VIRUS (RSV) RNA: Not detected [facility] Comment on above: Performed By: #### [id number] #### [facility] CLIA [id number] OF [facility] 10-12-2024 Note HNO ID: [id number] Author: TERESE FARAH RT(Faisal) Service: Radiology Author Type: Technologist Type: Progress Notes Filed: 10/12/2024 07:40 Note Text: Radiology Service Progress Note PATIENT NAME: Guillermo Hernandez DATE OF SERVICE: October 12, 2024 TIME: 7:39 AM PATIENT IDENTITY VERIFICATION COMPLETED USING TWO (2) IDENTIFIERS: Name and Date of confirmed by patient verbally and Name and Date of confirmed by identification band. FALL SCREENING: Has the patient had 2 falls in the last year or 1 fall with injury or currently using an Ambulatory Assistive Device (Walker, Cane, Wheelchair, Crutches, etc.)? Emergency Room Patient: Screened in ED PATIENT GENDER DATA: Assigned male at PATIENT RELEVANT IMPLANT DATA REVIEWED: Not Applicable PATIENT PRESENTS WITH AN IMPLANTABLE OR ATTACHED APPRAISAL TECHNICIAN: No RADIOLOGY DEPARTMENT: General X-ray: Exam(s) Completed: Chest X-Ray PERIPHERAL IV DATA: Not applicable SIGNED BY: RT Ralph(R) October 12, 2024 7:39 AM [facility] 09-19-2024 Telephone encounter Note Call placed to pt, no answer, no VM set up. If pt returns call, please refer him to Medical Records for copies of procedures completed in 2010. He can request this online or by calling [phone]. [facility] 09-19-2024 Miscellaneous Notes Call placed to pt, no answer, no VM set up. If pt returns call, please refer him to Medical Records for copies of procedures completed in 2010. He can request this online or by calling [phone]. Pt requesting to send message to Dr Alfonso's office. Pt requesting information about the procedure he had with Dr Alfonso early 2010. Pt asking for a printed out information regarding the name of the procedure and which nerve was involved to be mailed to him. Patient's address - [address] [place] [address] Pt's phone number also updated as requested. He may be reached at [phone] for any questions. documented in this encounter [facility] 09-19-2024 Telephone encounter Note Pt requesting to send message to Dr Alfonso's office. Pt requesting information about the procedure he had with Dr Alfonso early 2010. Pt asking for a printed out information regarding the name of the procedure and which nerve was involved to be mailed to him. Patient's address - [address] [place] [address] Pt's phone number also updated as requested. He may be reached at [phone] for any questions. [facility] Evaluation note Diagnosis Epigastric pain- Primary Abdominal pain, epigastric SOB (shortness of breath) Shortness of breath documented in this encounter [facility] note* Diagnosis Epigastric pain Abdominal pain, epigastric documented in this encounter [facility] note* Diagnosis Early satiety- Primary Epigastric pain Abdominal pain, epigastric Nausea Nausea alone documented in this encounter [facility] note* Diagnosis Early satiety Epigastric pain Abdominal pain, epigastric Nausea Nausea alone documented in this encounter [facility] note* Diagnosis Calculus of kidney- Primary documented in this encounter [facility] note* Diagnosis Nausea Nausea alone documented in this encounter [facility] note* Diagnosis Pre-op evaluation- Primary Preoperative examination, unspecified CHAY (obstructive sleep apnea) Obstructive sleep apnea (adult) (pediatric) Calculus of kidney * Assessment & Plan Note - Yvonne Krueger APRN.CNP - 12/28/2024 7:22 AM EDTAssociated Problem(s): CHAY (obstructive sleep apnea) Assessment: s/p UPPP 2009 documented in this encounter [facility] for visit Narrative* Outpatient Procedure (Routine) - Pending Review Specialty Diagnoses / Procedures Referred By Geo hassan Referred To Contact [facility] Diagnoses Epigastric pain Procedures EGD DIAGNOSTIC ESOPHAGOGASTRODUODENOSC OPY TRANSORAL DIAGNOSTIC Rei Ingram, [address] [place] [address] Phone: tel: fax: [facility] [address] [place] [address] Referral ID Status Reason Start Date Expiration Date Visits Requested Visits Authorized [id number] Pending Review Auto-Generat ed Referral 10/23/2024 10/23/2025 1 1 [facility] for visit Narrative* Financial Clearance (Routine) - Authorized Specialty Diagnoses / Procedures Referred By Contac t Referred To Contact [facility] Diagnoses Epigastric pain Medically Necessary Procedures OFFICE CONSULT Shefali Hearn PA-C [address] [place] [address] Phone: tel: fax: [facility] [phone] Referral ID Status Reason Start Date Expiration Date Visits Requested Visits Authorized [id number] Authorized Patient Cleared - Qualified 100% FAS 10/12/2024 01/10/2025 99 99 [facility] for visit Narrative* Financial Clearance (Routine) - Authorized Specialty Diagnoses / Procedures Referred By Geo t Referred To Contact [facility] Diagnoses Epigastric pain Medically Necessary Procedures OFFICE CONSULT Shefali Hearn PA-C [address] [place] [address] Phone: tel: fax: [place] [phone] Referral ID Status Reason Start Date Expiration Date Visits Requested Visits Authorized [id number] Authorized Patient Cleared - Qualified 100% FAS 10/12/2024 01/10/2025 99 99 [facility] for visit Narrative* Diagnostic Procedure Only (Routine) - Pending Review Specialty Diagnoses / Procedures Referred By Geo hassan Referred To Contact [facility] Diagnoses Nausea Procedures NM GASTRIC EMPTYING SOLID GASTRIC EMPTYING STUDY Alcira Alatorre PA-C [address] [place] [id number] Phone: tel: fax: [facility] [address] [place] [address] Phone: tel: Referral ID Status Reason Start Date Expiration Date Visits Requested Visits Authorized [id number] Pending Review Auto-Generat ed Referral 11/22/2024 12/22/2025 1 1 [facility] for visit Narrative* Consult, Test, Treat (Routine) - Authorized Specialty Diagnoses / Procedures Referred By Justinoac t Referred To Contact [facility] Diagnoses Epigastric pain Procedures EGD DIAGNOSTIC ESOPHAGOGASTRODUODENOSC OPY TRANSORAL DIAGNOSTIC Rei Ingram, [facility] [place] [address] Phone: tel: fax: [facility] [place] [address] Referral ID Status Reason Start Date Expiration Date Visits Requested Visits Authorized [id number] Authorized Auto-Generate d Referral Patient Cleared - Qualified 100% FAS 11/27/2024 02/25/2025 99 99 [facility] Summary Purpose Family History No Family History Records FoundNo Family History Records FoundNo Family History Records FoundNo Family History Records FoundNo Family History Records FoundNo Family History Records FoundNo Family History Records Found Advance Directives No Advanced Directives Records FoundNo Advanced Directives Records FoundNo Advanced Directives Records FoundNo Advanced Directives Records FoundNo Advanced Directives Records FoundNo Advanced Directives Records FoundNo Advanced Directives Records Found Procedure Findings Note HNO ID: [id number]: Ronni Nayak) AlvaroService: Orthopaedic SurgeryAuthor Type: PhysicianType: Brief Op NoteFiled: 07/03/2018 12:55 PMNote Text:BRIEF OPERATIVE / PROCEDURE NOTELOG ID: [id number]/Procedure Date: 07/03/2018Surgeon(s)/Proceduralist(s) and Hris Specialist(s):Surgeon(s) and Role: * Lindsey Hernández - Primary * Kennedy Nayak) Alvaro - FellowProcedure(s):Procedure(s) (LRB):EXCISION TENDON SHEATH OR CAPSULE EXTREMITY LOWER (Right)TENODESIS OF PROXIMAL INTERPHALANGEAL JOINT, 1ST JOINT (Right)OSTEOTOMY CALCANEOUS (Right)TENOTOMY ACHILLES TENDON PERCUTANEOUS, GENERAL ANESTHESIA (Right)RELEASE FASCIA PLANTAR RADICAL (Right)Anesthesia: GeneralFindings: cavovarus foot deformityEstimated Blood Loss: MinimalSpecimens: NonePre-Op/Pre-Procedure Diagnosis: right cavovarus foot deformity, rightperoneal tendon tear.Post-Op/Post-Procedure Diagnosis: right cavovarus foot deformity, rightperoneal tendon tear.Peroneal tendonitis, rightSIGNATURE: Kennedy John MD PATIENT NAME: Guillermo ChavisachDATE: July 03, (more content not included)... Additional Source Comments (unrecognized sect ion and content) No Status Records FoundNo Status Records FoundNo Status Records FoundNo Status Records FoundNo Status Records FoundNo Status Records FoundNo Status Records Found INFORMATION SOURCE (unrecogn ized section and content) DATE CREATED AUTHOR 02/08/2018 [facility] DATE CREATED AUTHOR AUTHOR'S ORGANIZ ATION 02/08/2018 [facility] DATE CREATED AUTHOR AUTHOR'S ORGANIZ ATION 07/24/2018 [facility] DATE CREATED AUTHOR AUTHOR'S ORGANIZ ATION 07/04/2019 [facility] DATE CREATED AUTHOR AUTHOR'S ORGANIZ ATION 11/24/2024 [facility] DATE CREATED AUTHOR AUTHOR'S ORGANIZ ATION 12/12/2024 [facility] DATE CREATED AUTHOR AUTHOR'S ORGANIZ ATION 12/29/2024 [facility] Source Comments (unrecognize d section and content) In the event this informatio n is protected by the Federal Confidentiality of Alcohol and Drug Abuse Patient Records regulations: The Federal rules restrict any use of the information to criminally investigate or prosecute any alcohol or drug abuse patient.[facility] the event this information is protected by the Federal Confidentiality of Alcohol and Drug Abuse Patient Records regulations: The Federal rules restrict any use of the information to criminally investigate or prosecute any alcohol or drug abuse patient.[facility] the event this information is protected by the Federal Confidentiality of Alcohol and Drug Abuse Patient Records regulations: The Federal rules restrict any use of the information to criminally investigate or prosecute any alcohol or drug abuse patient.[facility] the event this information is protected by the Federal Confidentiality of Alcohol and Drug Abuse Patient Records regulations: The Federal rules restrict any use of the information to criminally investigate or prosecute any alcohol or drug abuse patient.[facility] the event this information is protected by the Federal Confidentiality of Alcohol and Drug Abuse Patient Records regulations: The Federal rules restrict any use of the information to criminally investigate or prosecute any alcohol or drug abuse patient.[facility] the event this information is protected by the Federal Confidentiality of Alcohol and Drug Abuse Patient Records regulations: The Federal rules restrict any use of the information to criminally investigate or prosecute any alcohol or drug abuse patient.[facility] the event this information is protected by the Federal Confidentiality of Alcohol and Drug Abuse Patient Records regulations: The Federal rules restrict any use of the information to criminally investigate or prosecute any alcohol or drug abuse patient.[facility] the event this information is protected by the Federal Confidentiality of Alcohol and Drug Abuse Patient Records regulations: The Federal rules restrict any use of the information to criminally investigate or prosecute any alcohol or drug abuse patient.[facility] the event this information is protected by the Federal Confidentiality of Alcohol and Drug Abuse Patient Records regulations: The Federal rules restrict any use of the information to criminally investigate or prosecute any alcohol or drug abuse patient.[facility] the event this information is protected by the Federal Confidentiality of Alcohol and Drug Abuse Patient Records regulations: The Federal rules restrict any use of the information to criminally investigate or prosecute any alcohol or drug abuse patient.[facility] the event this information is protected by the Federal Confidentiality of Alcohol and Drug Abuse Patient Records regulations: The Federal rules restrict any use of the information to criminally investigate or prosecute any alcohol or drug abuse patient.[facility] Reason for Visit (unrecogniz ed section and content) Reason Comments Patient Question Reason Comments ED Follow-up Specialty Diagnoses / Procedures Referred By Contac t Referred To Contact [facility] Diagnoses Epigastric pain Medically Necessary Procedures OFFICE CONSULT COMP Shefali Schaefer PA-C [address] [place] [address] Phone: tel: fax: [facility] Department [place] [address] Referral ID Status Reason Start Date Expiration Date Visits Requested Visits Authorized [id number] Authorized Patient Cleared - Qualified 100% FAS 10/12/2024 01/10/2025 99 99 Reason Onset Date Comments Results 11/01/2024 Reason Comments Consult Consult for kidney s tone. First time w/ kidney stone. Reason Comments Radiology NM Care Teams (unrecognized sec tion and content) [employer] Consultant Relationship Specialty Start Date End Date Rei Ingram DO [address] [place] [address] PCP - General Internal Medicine 08/14/18 Lyubov Figueroa PA-C [address] [place], [place] [id number] Office Professional Internal Medicine 07/22/24 [employer] Consultant Relationship Specialty Start Date End Date Rei Ingram DO [address] [place] [address] PCP - General Internal Medicine 08/14/18 Lyubov Figueroa PA-C [address] [place] [address] Office Professional Internal Medicine 07/22/24 [employer] Consultant Relationship Specialty Start Date End Date Rei Ingram DO [address] [place] [address] PCP - General Internal Medicine 08/14/18 Lyubov Figueroa PA-C [address] [place] [address] Office Professional Internal Medicine 07/22/24 [employer] Consultant Relationship Specialty Start Date End Date Rei Ingram DO [address] [place] [address] PCP - General Internal Medicine 08/14/18 Lyubov Figueroa PA-C [address] [place] [address] Office Professional Internal Medicine 07/22/24 [employer] Consultant Relationship Specialty Start Date End Date Rei Ingram DO [address] [place] [address] PCP - General Internal Medicine 08/14/18 Lyubov Figueroa PA-C [address] [place] [address] [facility] Internal Medicine 07/22/24 [employer] Consultant Relationship Specialty Start Date End Date Rei Ingram DO [address] [place] [address] PCP - General Internal Medicine 08/14/18 Lyubov Figueroa PA-C [address] [place] [address] [facility] Internal [facility] 07/22/24 [employer] Consultant Relationship Specialty Start Date End Date Rei Ingram [address] [place] [id number] PCP - General Internal Medicine 08/14/18 Lyubov Figueroa PA-C [address] [place] [address] [facility] 07/22/24 FOR RECORDS PERTAINING TO PATIENTS WHO ARE OR HAVE BEEN ENROLLED IN A CHEMICAL DEPENDENCY/SUBSTANCEABUSE PROGRAM, SOME INFORMATION MAY BE OMITTED. This clinical summary was aggregated from multiple sources. Caution should be exercised in using it in the provision of clinical care. This summary normalizes information from multiple sources, and as a consequence, information in this document may materially change the coding, format and clinical context of patient data. In addition, data may be omitted in some cases. CLINICAL DECISIONS SHOULD BE BASED ON THE PRIMARY CLINICAL RECORDS. [facility]. provides no warranty or guarantee of the accuracy or completeness of information in this document.
--- OUTSIDE RECORDS SUMMARY | 2025-01-01 21:12 | XMS_ITS | Clinical Summary ---
Author Organization [facility] Address [address] [place] [id number] Care Team Providers Care Boiler Maker Name Role Phone Juan Jose Rei Giovanni RVIERA Primary Care Provider Lyubov Figueroa PA-C Unavailable [phone] Allergies Active Allergy Reactions Criticality Noted Date Comments Amoxicillin-Pot Clavulanate Mental Status Change 07/16/2010 Lightheadedness Seasonal Allergies Other: See Comments 07/08/20 10 Medications savanna root, bulk, powd Active phenazopyridin e (PYRIDIUM) 100 mg tablet Take 2 tablets by mouth three times a day as needed (Urethral pain). 12 tablet 5 Active tamsulosin (FLOMAX) 0.4 mg Take 1 capsule by mouth once daily. Stop two days after your stent is removed. 30 capsule 5 02/01/20 25 Active hyoscyamine (LEVSIN) 0.125 mg tablet Take 1 tablet by mouth every 4 hours as needed (For bladder spasms). 30 tablet 5 Active acetaminophen (TYLENOL 8 HOUR) 650 mg CR tablet Take 1 tablet by mouth every 8 hours as needed for pain. 20 tablet 5 Active keTORolac (TORADOL) 10 mg tablet Take 1 tablet by mouth every 6 hours as needed for pain for up to 5 days. 6 tablet 5 01/07/20 25 Active omeprazole (PRILOSEC) 40 mg capsuleIndicat ions:Epigastri c pain Take 1 capsule by mouth once daily. 30 capsule 5 5 12/29/19 25 Discontinued sucralfate (CARAFATE) 1 gram tabletIndicati ons:Epigastric pain Take 1 tablet by mouth before meals and at bedtime. 120 tablet 1 5 12/29/[address] (PROTONIX) 40 mg tablet Take 1 tablet by mouth two times a day before meals. 60 tablet 11 5 12/29/19 25 Discontinued famotidine (PEPCID) 40 mg tablet Take 1 tablet by mouth daily at bedtime. 30 tablet 5 5 12/29/19 25 Discontinued Active Problems Problem Noted Date Diagnosed Date CHAY (obstructive sleep apnea) 12/28/2024 Assessment & Plan (12/28/2024 7:31 AM EDT): Assessment: s/p UPPP 2009 Acute post-operative pain 07/11/2018 Bunionette of right foot 06/24/2018 Overview (06/24/2018): Added automatically from request for surgery [id number] Peroneal tendonitis, right 06/24/2018 Overview (06/24/2018): Added automatically from request for surgery [id number] Callus 02/22/2018 Tinea pedis of both feet 02/22/2018 Tailor's bunion of both feet 02/22/2018 Pain in left foot 02/22/2018 Peroneal tendonitis of right lower leg 8 Overview (11/20/2017): Added automatically from request for surgery [id number] Ingrown right big toenail 10/27/2017 Pain in toe of right foot 10/27/2017 Onychomycosis with ingrown toenail 10/27/2017 Pain, joint, ankle and foot, right 09/29/2017 Spondylosis of lumbar region without myelopathy or radiculopathy 07/15/2015 DVT prophylaxis 07/01/2013 Overview (07/02/2013): -Heparin sq Onychia of toe 06/05/2012 Onychocryptosis 06/05/2012 Pain in limb 06/05/2012 Cerebrospinal fluid rhinorrhea 06/18/2011 Cervical facet joint syndrome 05/21/2011 Tinea cruris 04/20/2011 Sprain of thoracic region 09/02/2010 Allergic rhinitis due to other allergen 09/29/19 10 Postlaminectomy syndrome, lumbar region 02/19/20 09 Other symptoms referable to back 02/18/2009 PMH - PAST MEDICAL HISTORY OF Overview (01/12/2005): Premature Ventricular Contractions Resolved Problems Problem Noted Date Diagnosed Date Resolved Date Levator spasm 11/25/2016 06/08/2017 Male pelvic pain 11/25/2016 06/08/2017 SUMMARY 07/01/2013 11/12/2016 Overview (07/02/2013): Mr. Hernandez is a 43yo male with PMH of chronic LBP who is transferred for ongong chest pain. 07/01/2013 - cardiac cath - normal 07/02/2013 - echo - normal Discharge Chest pain 07/01/2013 06/08/2017 Overview (07/02/2013): His CP is atypical and ongoing for [...] significant valvular abnormalities 07/02/2013 - dischrage today Ingrowing nail 06/05/2012 06/08/2017 Sprain of neck 09/02/2010 06/08/2017 Acute sinusitis, unspecified 01/09/2010 06/08/2017 Unspecified sinusitis (chronic) 09/29/2009 06/08/2017 Encounters Date Type Department Care Team Description 01/01/2025 11:15 AM EDT - 01/01/2025 12:45 PM EDT Surgery [facility] Surgery [address] [place] [address] RenéNika barkley MD CYSTOURETHROSCOPY W/ URETEROSCOPY AND/OR PYELOSCOPY W/ LITHOTRIPSY INCLUDE INSERTION OF INDWELLING URETERAL STENT 01/01/2025 11:11 AM EDT Anesthesia Event [facility] Surgery [address] [place] [address] Tiffanie Bishop MD 01/01/2025 9:26 AM EDT - 01/01/2025 2:01 PM EDT Hospital Encounter [facility] Surgery [address] [place] [address] Nika Merritt MD Calculus of kidney [N20.0] Discharge Disposition: Home 01/01/2025 Telephone Urology [address] [place] [address] Nika Merritt MD Stent Extraction 01/01/2025 Travel 12/28/2024 7:30 AM EDT PAT Pre Anesthesia [address] [place] [address] Pre-op evaluation (Primary Dx); CHAY (obstructive sleep apnea) 12/28/2024 Travel 12/13/2024 Travel 12/12/2024 9:41 AM EDT - 12/12/2024 11:59 PM EDT Hospital Encounter [facility] Radiology Molecular [id number] [place] [address] Nausea [R11.0] Discharge Disposition: Home 12/12/2024 Results Follow-Up Gastroenterology [facility] [address] [place] [address] Aide Herman APRN.ENGINE CLEANER 12/11/2024 Telephone [facility] Radiology Molecular [address] [place] [address] Beatriz Oh, RT(R) Radiology CT 12/06/2024 Telephone Gastroenterology [address] [place] [address] Kanchan Samayoa PA-C Patient Update 12/06/2024 Results Follow-Up [facility] [address] [place] [address] Kanchan Samayoa PA-C 12/05/2024 12:59 PM EDT - 12/05/2024 11:59 PM EDT Hospital Encounter [facility] Radiology Molecular [address] [place] [address] Nausea [R11.0] Discharge Disposition: Home 12/05/2024 Telephone Urology [address] [place] [address] Nika Mreritt MD 12/04/2024 Telephone [facility] Radiology Molecular [address] [place] [address] Adarsh Anguiano [facility] Radiology [place] 11/30/2024 11:00 AM EDT Office Visit Urology [address] [place] [address] Nika Merritt MD Calculus of kidney (Primary Dx) 11/27/2024 Results Follow-Up Gastroenterology [address] [place] [address] Kanchan Samayoa PA-C 11/23/2024 8:36 AM EDT - 11/23/2024 11:59 PM EDT Hospital Encounter [facility] [address] [place] [address] Early satiety [R68.81] Discharge Disposition: Home 11/22/2024 1:25 PM EDT Office Visit Gastroenterology [address] [place] [address] Kanchan Samayoa PA-C Early satiety (Primary Dx); Epigastric pain; Nausea 11/22/2024 Travel 11/01/2024 Results Follow-Up Gastroenterology [address] [place] [address] Aurora Carmichael MD Results 10/29/2024 1:02 PM EDT Anesthesia Event Ambulatory Surgery [address] [place] [address] Lyubov De La Cruz APRN.CONTRACT COORDINATOR 10/29/2024 12:14 PM EDT - 10/29/2024 11:59 PM EDT Hospital Encounter Ambulatory Surgery [address] [place] [address] Aurora Carmichael MD Hartley, Tracey, RN Scully, Stephanie, MA Epigastric pain [R10.13] Discharge Disposition: Home 10/26/2024 GI Preprocedure Call Ambulatory Surgery [address] [place] [address] Aurora Carmichael MD 10/26/2024 Patient Msg Gastroenterology [address] [place] [address] Provider, [facility]cf Egd instructions and medications to stop prior to procedure 10/23/2024 1:15 PM EDT Office Visit Internal Medicine [place] [address] [place] [address] Rei Ingram, Epigastric pain (Primary Dx); SOB (shortness of breath) 10/12/2024 11:02 AM EST - 10/12/2024 2:57 PM [facility] Emergency Department [address] [place] [address] upper abdominal pain, SOB Discharge Disposition: Home 10/12/2024 Travel 10/11/2024 5:19 PM EST - 10/11/2024 5:23 PM [facility] Emergency Department [address] [place] [address] abd pain, SOb Discharge Disposition: AMA/Discontinuation of Care-Use additional discharge code from Last 3 Months Immunizations Immunization Administration Dates Next Due influenza vaccine, unspecified formulation 07/02 pneumococcal polysaccharide (PPV23) vaccine, 23 valent (PNEUMOVAX 23) 10/18/2016 Family History Medical History Relation Comments Cancer Father non Hodgkin's ly mphoma Arthritis Mother Hypertension Mother Thyroid Mother cancer dx at age 60 Cancer Paternal Grandfather Prostate Heart Paternal Grandfather heart surg lala Heart Paternal Grandmother pacemaker Colon Cancer No Family History Relation Status Comments Father Mother Alive Paternal Grandfather Paternal Grandmother Social History Tobacco Use Types Packs/Day Years Used Date Smoking Tobacco: Never Smokeless Tobacco: Never Tobacco Cessation:Counseling Given: Not Answered Alcohol Use Standard Drinks/Week Comments No 0 (1 standard drink = 0.6 oz pur e alcohol) PHQ-2 Answer Date Recorded PHQ2 Score 0 04/05/2018 Area Deprivation Index Answer Date Lamin rded National Score (1-100), lower number is lower ri sk 82 10/13/2024 State Score (1-10), lower number is lower risk 7 10/13/2024 Data from: https://www.neighborhoodatlas.medicine.[facility]/. Last address used for calculation [address] 10/13/2024 Sex and Gender Information Value Date Recorded Sex Assigned at Not on file Legal Sex Male 9:58 AM EST Gender Identity Not on file Sexual Orientation Not on file Occupation Industry Job Start Date Job End Date [employer] Not on file Not on file Not on file Last Filed Vital Signs Vital Sign Reading [...] Mass Index 25.68 12/28/2024 7:14 AM EDT Plan of Treatment Scheduled Procedures Name Priority Associated Diagnoses Date/Ti me CYSTOURETHROSCOPY W/ URETEROSCOPY AND/OR PYELOSCOPY W/ LITHOTRIPSY INCLUDE INSERTION OF INDWELLING URETERAL STENT Calculus of kidney 01/01/2025 10:56 AM EDT Health Maintenance Due Date Last Done Comments Anxiety Screening 1990 Depression Screening 1990 HIV Screening 1990 DTaP,Tdap,Td Vaccine (1 - Tdap) 1991 Hepatitis B Vaccine (1 of 3 - 19+ 3-dose series) 1991 CT Colonography 2017 Cologuard (FIT-DNA) 2017 Fecal Occult Blood 2017 Sigmoidoscopy 2017 Pneumococcal Vaccine: 50+ (2 of 2 - PCV) 10/18/2017 10/18/2016 Shingrix Vaccine (1 of 2) 2022 Lipid Screening 05/29/2023 05/29/2018, 07/01/2013 Covid-19 Vaccine (1 - 2023-2 5 season) 2024 Influenza Vaccine (Season Ended) 2025 07/02/20 13 Colonoscopy 10/26/2026 10/26/2016, 07/26/2012 Colorectal Cancer Screening 10/26/2026 Diabetes Screening 10/12/2027 10/12/2024, 1 , 07/08/2017, Additional history exists Hepatitis C Screening Completed 07/14/2012 Medical Devices Implanted Type Area Exam Proctor Device Identifier Shelf Expiration Date Model / Serial / Lot Fku-Mb-U-Kind Implant - [id number] Implanted:Qty: 1 on 07/03/2018 by Manan Good MD at [facility] Implant Right: Bone - Foot [employer] [place] [id number] 0 / / Description:60mm 7.3mm cannu lated screw Kgj-Fa-Y-Kind Implant - [id number] Implanted:Qty: 1 on 07/03/2018 by Manan Good MD at [facility] Implant Right: Bone - Foot [employer] [place] [id number] 0 / / Description:70mm 7.3mm cannu lated screw [employer] 6 Fr X 30 Cm Implanted:Qty: 1 on 01/01/2025 by Nika Merritt MD at [facility] Implant Left: Ureter BARD 12/12/2026 [id number] / / [id number] Procedures Procedure Name Priority Date/Time Associated Diagnosis Comments INTUBATION Routine 01/01/2025 11:16 AM EDT BACTERIAL CULTURE, URINE Routine 12/24/2024 9:43 AM EDT Kidney stone Preoperative testing NM GASTRIC EMPTYING SOLID Routine 12/12/2024 2:31 PM EDT Nausea NM HEPATOBILIARY W EF AND/OR RX Routine 12/05/2024 3:37 PM EDT Nausea BACTERIAL CULTURE, URINE Routine 11/30/2024 12:16 PM EDT Calculus of kidney XR UPPER GI SINGLE CONTRAST Routine 11/23/2024 11:26 AM EDT Early satiety Epigastric pain Nausea XR SMALL BOWEL SERIES 11/23/2024 11:05 AM EDT SURGICAL PATHOLOGY Routine 10/29/2024 1: 07 PM EDT Epigastric pain EGD DIAGNOSTIC Routine 10/29/2024 1:02 PM EDT Epigastric pain PT ED DIGESTIVE DISEASE 10/24/2024 ECG COMPLETE 10/23/2024 1:32 PM EDT ECG COMPLETE Routine 10/23/2024 1:32 PM EDT SOB (shortness of breath) PT ED PATIENT INFORMATION 10/23/2024 URINALYSIS (WITH MICROSCOPIC) WITH CULTURE IF INDICATED STAT 10/12/2024 12:[address] ABD/PEL W IVCON STAT 10/12/2024 12 :29 PM EST CTA CHEST (NONGATED) W IVCON PE STAT 10/12/2024 12:29 PM EST EKG Routine 10/12/2024 11:38 AM EST ECG COMPLETE STAT 10/12/2024 11:38 AM EST HIGH SENSITIVITY TROPONIN T (SECOND) STAT 10/12/2024 11:27 AM EST COVID & INFLUENZA A/B & RSV PCR, EXPEDITED STAT 10/12/2024 9:10 AM EST HIGH SENSITIVITY TROPONIN T (INITIAL) STAT 10/12/2024 9:10 AM EST COMPLETE BLOOD COUNT STAT 10/12/2024 9:10 AM EST LIPASE BLD STAT 10/12/2024 9:10 AM EST COMPREHENSIVE METABOLIC PANEL STAT 10/12/2024 9:10 AM EST XR CHEST 2V FRONTAL/LAT STAT 10/12/2024 7:40 AM EST LIPID PANEL (LIPB) (FOR REMOTE [facility] USE) Routine 05/29/2018 5:12 PM EDT Encounter for well adult exam with abnormal findings COLONOSCOPY 10/26/2016 10:35 AM EDT HEP ACUTE PANEL/RNA Routine 07/14/2012 5 :14 PM EST Abdominal pain Change in bowel habits Elevated LFTs from Last 3 Months or Most Recently Relevant to Health Maintenance Results * Airway (01/01/2025 11:16 AM EDT) Narrative Uma Aparicio APRN.CONTRACT COORDINATOR - 01/01/2025 11:16 AM EDT Uma Aparicio APRN.CONTRACT COORDINATOR 01/01/2025 11:24 AM Airway General Information Procedure Start Time/Medication Administration: 01/01/2025 11:16 AM Procedure End Time: 01/01/2025 11:16 AM Patient location during procedure: OR Staffing Anesthesiologist: Tiffanie Bishop MD CONTRACT COORDINATOR: Uma Aparicio APRN.CONTRACT COORDINATOR Performed by: CONTRACT COORDINATOR Indications and Patient Condition Indications for airway management: anesthesia Preoxygenated: yes anesthesia circuit Patient position: sniffing Method: asleep Difficult Mask: No Final Airway Details Final airway type: supraglottic airway Number of attempts at approach: 1 Final Supraglottic Airway: IGEL Size 5 Seal Adequate: yes Airway not difficult Tiffanie Bishop MD ANESTHESIA ORDERABLES Final Result * BACTERIAL CULTURE, URINE (12/24/2024 9:43 AM EDT) Only the most recent of2 resultswithin the time period is included. Culture, Urine No growth (<1,000 CFU/ml) 12/25/2024 9:53 AM EDT [facility] Urine MID-STREAM URINE SPECIMEN / Unknown Non Blood / Unknown 12/24/2024 9:43 AM EDT 12/24/2024 9:43 AM EDT Nika Merritt MD MICROBIOLOGY Final Result [facility] [address] [facility] [address] [place] [address], [place] * NM GASTRIC EMPTYING SOLID (12/12/2024 2:31 PM EDT) Anatomical Region Laterality Modality Nuclear Medicine 12/12/2024 2:31 PM EDT Impressions 12/12/2024 3:37 PM EDT IMPRESSION: Normal gastric emptying rate for the solid meal. Bridge Saw Operator: PSCB Transcribe Date/Time: Dec 12 2024 3:33P Dictated by : MAYA DIAZ MD This examination was interpreted and the report reviewed and electronically signed by: MAYA DIAZ MD on Dec 12 2024 3:35PM EST Narrative 12/12/2024 3:37 PM EDT * * *Final Report* * * DATE OF EXAM: Dec 12 2024 2:31PM N 0017 - NM GASTRIC EMPTYING SOLID / [...] used to calculate gastric retention values. Reference, https://doi.org/10.2967/jnmt.107.885056 * Solid meal ingested by the patient: [...] hours (normal range, <10%) Fundal Accommodation: Adequate Procedure Note Provider, [facility] - 12/12/2024 * * *Final Report* * * DATE OF EXAM: Dec 12 2024 2:31PM [facility] 0017 - NM GASTRIC EMPTYING SOLID / [...] used to calculate gastric retention values. Reference, https://doi.org/10.2967/[facility].107.713216 * Solid meal ingested by the patient: [...] gastric emptying rate for the solid meal. Bridge Saw Operator: ARNALDO Transcribe Date/Time: Dec 12 2024 3:33P Dictated by : MAYA DIAZ MD This examination was interpreted and the report reviewed and electronically signed by: MAYA DIAZ MD on Dec 12 2024 3:35PM EST us Kanchan Samayoa PA-C NM-PAMA Final Resu lt * NM HEPATOBILIARY W EF AND/OR RX (12/05/2024 3:37 PM EDT) Anatomical Region Laterality Modality Abdomen Nuclear Medicine 12/05/2024 3:37 PM EDT Impressions 12/05/2024 4:40 PM EDT IMPRESSION: No scintigraphic evidence of cystic duct obstruction. Normal gallbladder ejection fraction. Bridge Saw Operator: ARNALDO Transcribe Date/Time: Dec 05 2024 3:43P Dictated by : LIA CURIEL, DO This examination was interpreted and the report reviewed and electronically signed by: SANDRA BENNETT MD on Dec 05 2024 4:38PM EST Narrative 12/05/2024 4:40 PM EDT * * *Final Report* * * DATE OF EXAM: Dec 05 2024 3:37PM N 0021 - NM HEPATOBILIARY W EF AND/OR RX / PROCEDURE [...] activity present by 1 hour, indicating patency. Procedure Note Provider, [facility] - 12/05/2024 * * *Final Report* * * DATE OF EXAM: Dec 05 2024 3:37PM N 0021 - NM HEPATOBILIARY W EF AND/OR RX / PROCEDURE [...] small bowel activity present by 1 hour, indicatingpatency. IMPRESSION IMPRESSION: No scintigraphic evidence of cystic duct obstruction. Normal gallbladder ejection fraction. Bridge Saw Operator: ARNALDO Transcribe Date/Time: Dec 05 2024 3:43P Dictated by : LIA CURIEL DO This examination was interpreted and the report reviewed and electronically signed by: SANDRA BENNETT MD on Dec 05 2024 4:38PM EST us Kanchan Samayoa PA-C NM-PAMA Final Resu lt * XR UPPER GI SINGLE CONTRAST (11/23/2024 11:26 AM EDT) Anatomical Region Laterality Modality Radio Fluoroscop y 11/23/2024 9:35 AM EDT Impressions 11/23/2024 2:45 PM EDT IMPRESSION: Large volume gastroesophageal reflux. No hiatal [...] DO on Nov 23 2024 2:43PM EST Narrative 11/23/2024 2:45 PM EDT * * *Final Report* * * DATE [...] low density barium. Contrast: ORAL: 155 (accession [id number]), 300 (accession [id number]) ml of EZPAQUE Fluoroscopy radiation summary: Fluoroscopy time: 1:02 (accession [id number]), 4:00 (accession [id number]) (min:sec). Air kerma: 30.9 mGy (accession [id number]), 71.4 mGy (accession [id number]). RESULT: UPPER GI: Caliber: Normal. Stricture, Ring, [...] or other abnormality identified in this area. Procedure Note Provider, [facility] - 11/23/2024 * * *Final Report* * [...] low density barium. Contrast: ORAL: 155 (accession [id number]), 300 (accession [id number]) ml ofEZPAQUE Fluoroscopy radiation summary: Fluoroscopy time: 1:02 (accession [id number]), 4:00 (accession [id number]) (min:sec). Air kerma: 30.9 mGy (accession [id number]), 71.4 mGy ([id number]). RESULT: UPPER GI: Caliber: Normal. Stricture, Ring, [...] DO on Nov 23 2024 2:43PM EST us Kanchan Yacapraro PA-C RAD-PAMA Final Resu lt * XR SMALL BOWEL SERIES (11/23/2024 11:05 AM EDT) Anatomical Region Laterality Modality Abdomen Radiographic Rajwinder ging 11/23/2024 11:0 5 AM EDT Impressions 11/23/2024 2:45 PM EDT IMPRESSION: Large volume gastroesophageal reflux. No hiatal [...] DO on Nov 23 2024 2:43PM EST Narrative 11/23/2024 2:45 PM EDT * * *Final Report* * * DATE [...] low density barium. Contrast: ORAL: 155 (accession [id number]), 300 (accession [id number]) ml of EZPAQUE Fluoroscopy radiation summary: Fluoroscopy time: 1:02 (accession [id number]), 4:00 (accession [id number]) (min:sec). Air kerma: 30.9 mGy (accession [id number]), 71.4 mGy (accession [id number]). RESULT: UPPER GI: Caliber: Normal. Stricture, Ring, [...] or other abnormality identified in this area. Procedure Note Provider, [facility] - 11/23/2024 * * *Final Report* * [...] low density barium. Contrast: ORAL: 155 (accession [id number]), 300 (accession [id number]) ml ofEZPAQUE Fluoroscopy radiation summary: Fluoroscopy time: 1:02 (accession [id number]), 4:00 (accession [id number]) (min:sec). Air kerma: 30.9 mGy (accession [id number]), 71.4 mGy ([id number]). RESULT: UPPER GI: Caliber: Normal. Stricture, Ring, [...] DO on Nov 23 2024 2:43PM EST us Kanchan PANDEY Final Resu lt * SURGICAL PATHOLOGY (10/29/2024 1:07 PM EDT) Case Report Surgical Pathology Report Case: [id number] Authorizing Provider: Aurora Carmichael MD Collected: 10/29/2024 01:07 PM Ordering Location: Ambulatory Surgery Received: 10/29/2024 08:37 PM Pathologist: Craig Arguello MD Specimens: A) - Stomach, Biopsy B) - Esophagus, Distal, Biopsy, granular tissue r/o eoe C) - Esophagus, Proximal, Biopsy, granular tissue r/o eoe 10/30/2024 1:48 PM EDT [facility] FINAL DIAGNOSIS A. Stomach, biopsy: - Antral and fundic mucosa with minimal chronic inflammation. - No evidence of H. pylori. B. Distal esophagus, biopsy: - Mildly reactive squamous mucosa; no evidence of eosinophilic esophagitis. C. Proximal esophagus, biopsy: - Mildly reactive squamous mucosa; no evidence of eosinophilic esophagitis. 10/30/2024 1:48 PM EDT [facility] at 1348 EDT Gross Description A. Stomach, Biopsy Received in formalin are multiple pieces [...] 2024 9:29 PM Gross examination performed at [facility], [address] [place] [address] 10/30/2024 1:48 PM EDT [facility] Performing Lab Diagnostic interpretation performed at: [facility], [address] [address] CLIA# [id number] Bridal Gown Fitter: Adenike Dove MD 10/30/2024 1:48 PM EDT [facility] Disclaimer Laboratory Developed Test (LDT) Disclaimer: Performance characteristics of immunohistochemica l, immunofluorescent, and chromogenic in-situ hybridization tests have been determined by the performing laboratory within [facility]'s [facility] Pathology and Laboratory Medicine Department ([facility], [facility], [facility], [facility], [facility], [facility], or [facility]) in a manner consistent with CLIA requirements. One or more of these tests may not have been cleared or approved by the FDA. [facility] is regulated under CLIA as qualified to perform high-complexity testing. These tests are used for clinical purposes. These should not be regarded as investigational or for research. Positive and negative controls stain appropriately. 10/30/2024 1:48 PM EDT [facility] Tissue BIOPSY OF STOMACH / Unknown 10/29/2024 1:07 PM EDT 10/29/2024 8:37 PM EDT Comment:r/o h pylori Tissue specimen (specimen) BIOPSY OF ESOPHAGUS / Unknown 10/29/2024 1:09 PM EDT 10/29/2024 8:37 PM EDT Tissue specimen (specimen) BIOPSY OF ESOPHAGUS / Unknown 10/29/2024 1:12 PM EDT 10/29/2024 8:37 PM EDT Aurora Carmichael MD SURGICAL PATHOLOGY Final Result [facility] [address] [facility] [place] [address], * EGD DIAGNOSTIC (10/29/2024 1:02 PM EDT) Anatomical Region Laterality Modality Other 10/29/2024 1:02 PM EDT Narrative 10/29/2024 1:22 PM EDT [facility] Gastroenterology Gastrointestinal Endoscopy Patient Name: Guillermo Hernandez Procedure Date: 10/29/2024 1:02 PM Date of : 1970 Admit Type: Outpatient Age: 54 Room: [facility] 1 Gender: Male Note Status: Finalized Attending MD: Aurora Carmichael MD, [id number] Procedure: Upper GI endoscopy Indications: Epigastric abdominal [...] the patient. Procedure Code(s): --- Professional --- 76847, Esophagogastroduodenoscopy, flexible, transoral; with biopsy, single or multiple Diagnosis Code(s): --- Professional --- K21.00, Gastro-esophageal reflux disease with esophagitis, without bleeding K22.89, Other specified disease of esophagus R10.13, Epigastric pain R13.11, Dysphagia, oral phase R07.89, Other chest pain R05.3, Chronic cough R63.4, Abnormal weight loss CPT copyright 2020 [employer]. All rights reserved. The codes documented in this report are preliminary and upon divemaster review may be revised to meet current compliance requirements. Scope In: 1:04:40 PM Scope Out: 1:13:[address] AURORA CARMICHAEL M.D. Aurora Carmichael MD 10/29/2024 1:20:39 PM This report has been signed electronically by Aurora Carmichael MD Number of Addenda: 0 Note Initiated On: 10/29/2024 1:02 PM Estimated Blood Loss: Estimated blood loss was minimal. Rei Ingram DO DIGESTIVE DISEASE Sunni l Result * PT ED DIGESTIVE DISEASE (10/24/2024) 10/24/2024 Narrative SONIA - 11/24/2024 Provider AMOL your patient GUILLERMO HERNANDEZ has not started their Sonia program, time has . Sonia program: UPPER GI ENDOSCOPY (EGD) us Aurora Carmichael MD SONIA Final Result Performing Organization Address City/[facility] Co de Phone Number SONIA * ECG COMPLETE (10/23/2024 1:32 PM EDT) Ventricular Rate 79 BPM [facility] Atrial Rate 79 BPM [facility] P-R Interval 128 ms [facility] QRS Duration 88 ms [facility] QT Inter[facility] 390 ms [facility] QTC Calculation (Bazett) 447 ms [facility] Calculated P Grace 72 degrees [facility] Calculated R Grace 46 degrees [facility] Calculated T Grace 45 degrees [facility] 10/23/2024 1:32 PM EDT Impressions [facility] - 10/23/2024 7:40 PM EDT NORMAL SINUS RHYTHM POSSIBLE LEFT ATRIAL ENLARGEMENT BORDERLINE ECG Confirmed by Garcia MATHEW RAVISANKAR ([id number]) on 10/23/2024 7:40:30 PM Narrative [facility] - 10/23/2024 7:40 PM EDT NAME : GUILLERMO HERNANDEZ PID : [id number] : 1970 Gender : Male Race : ORD : [id number] Procedure Date : Oct 23 2024 13:32:54 Edit Date : Oct 23 2024 19:40:33 Diagnosis: NORMAL SINUS RHYTHM POSSIBLE LEFT ATRIAL ENLARGEMENT BORDERLINE ECG Confirmed by Garcia MATHEW RAVISANKAR ([id number]) on 10/23/2024 7:40:30 PM Test Reason : SOB Location : 515 : SUPAM Overread By : Garcia MATHEW RAVISANKAR Edited By : Garcia MATHEW RAVISANKAR Referred By : MALINI SCHAEFER Acquired by : MADELINE, us Rei Ingram DO EKG Final Result Performing Organization Address City/[facility]/ZIP Co de Phone Number [facility] [address] [place] [address] * PT ED PATIENT INFORMATION (10/23/2024) 10/23/2024 Narrative SONIA - 11/23/2024 Provider LANDRY muñoz patient GUILLERMO HERNANDEZ has not started their Sonia program, time has . Sonia program: PATIENT SAFETY INSTRUCTIONS FOR HEALTHCARE SETTINGS us Kanchan Samayoa PA-C SONIA Final Resu lt SONIA * (ABNORMAL) URINALYSIS (WITH MICROSCOPIC) WITH CULTURE IF INDICATED (10/12/2024 12:52 PM EST) Color Yellow yellow 10/12/2024 1:07 PM [facility] Clarity Clear Clear 10/12/2024 1:07 PM [facility] Glucose, Urine Negative Trace, Negative 10/12/2024 1:07 PM [facility] Bilirubin, Urine Negative Negative 10/12/19 25 1:07 PM [facility] Ketones, Urine Negative Negative, Trace 10/12/2024 1:07 PM [facility] Specific [place], Ur >1.050(H) 1.005 - 1.030 10/12/2024 1:07 PM [facility] Hemoglobin/Blood ,Ur Negative Negative, Trace 10/12/2024 1:07 PM [facility] pH, Urine 6.5 5.0 - 8.0 10/12/2024 1:07 PM [facility] Protein, Urine 1+(A) Trace, Negative 10/12/2024 1:07 PM [facility] Urobilinogen Normal Normal 10/12/2024 1:07 PM [facility] Nitrites Negative Negative 10/12/2024 1:07 PM [facility] Leuk Esterase Negative Negative, 25 Juan J/uL 10/12/2024 1:07 PM [facility] WBC, Urine 0-5 /HPF 0-5 /HPF 10/12/2024 1:07 PM [facility] RBC, Urine 0-3 /HPF 0-3 /HPF 10/12/2024 1:07 PM [facility] Urine MID-STREAM URINE SPECIMEN / Unknown Non Blood / Unknown 10/12/2024 12:52 PM EST 10/12/2024 12:59 PM EST us Sandra Molina DO LABORATORY Final Result [facility] [address] [address], [place] * CTA CHEST (NONGATED) W IVCON PE (10/12/2024 12:29 PM EST) Anatomical Region Laterality Modality Chest Computed Tomogra phy 10/12/2024 12:2 9 PM EST Impressions 10/12/2024 1:30 PM EST IMPRESSION: No central pulmonary embolism identified. Bridge Saw Operator: ARNALDO Transcribe Date/Time: Oct 12 2024 1:07P Dictated by : ABIOLA WHITE MD This examination was interpreted and the report reviewed and electronically signed by: ABIOLA WHITE MD on Oct 12 2024 1:28PM EST Narrative 10/12/2024 1:30 PM EST * * *Final Report* * * DATE OF EXAM: Oct 12 2024 12:29PM [facility] 0564 - CTA CHEST (NON GATED) [...] dictated separately. Localizer images: No additional findings. Procedure Note Provider, [facility] - 10/12/2024 * * *Final Report* * * DATE OF EXAM: Oct 12 2024 12:29PM [facility] 0564 - CTA CHEST (NON GATED) [...] disease. - Segmental pulmonary arteries: No definite thromboembolicdisease. - Subsegmental pulmonary arteries: No definite thromboembolic [...] optimized for coronary assessment. No pericardial effusion orthickening. Bones and soft tissues: There are no aggressive osseous lesions. The chest wall is unremarkable. Upper abdomen: A CT abdomen and pelvis will be dictated separately. Localizer images: No additional findings. IMPRESSION IMPRESSION: No central pulmonary embolism identified. Bridge Saw Operator: ARNALDO Transcribe Date/Time: Oct 12 2024 1:07P Dictated by : ABIOLA WHITE MD This examination was interpreted and the report reviewed and electronically signed by: ABIOLA WHITE MD on Oct 12 2024 1:28PM EST us Malini Schaefer PA-C CT-PAMA Final Resul t * CT ABD/PEL W IVCON (10/12/2024 12:29 PM EST) Anatomical Region Laterality Modality Abdomen Computed Tomogra phy 10/12/2024 12:2 9 PM EST Impressions 10/12/2024 1:30 PM EST IMPRESSION: 1. New hepatic hypodensities favor representing a cyst. 2. Nonobstructive left nephrolithiasis. 3. Tarlov cyst in the sacrum. This should be of no consequence. Bridge Saw Operator: [facility] Transcribe Date/Time: Oct 12 2024 1:18P Dictated by : ABIOLA WHITE MD This examination was interpreted and the report reviewed and electronically signed by: ABIOLA WHITE MD on Oct 12 2024 1:28PM EST Narrative 10/12/2024 1:30 PM EST * * *Final Report* * * DATE OF EXAM: Oct 12 2024 12:29PM [facility] 0530 - CT ABD/PEL W IVCON [...] reported separately. Localizer images: No additional findings. Procedure Note Provider, [facility] - 10/12/2024 * * *Final Report* * * DATE OF EXAM: Oct 12 2024 12:29PM [facility] 0530 - CT ABD/PEL W IVCON [...] reported separately. Localizer images: No additional findings. IMPRESSION IMPRESSION: 1. New hepatic hypodensities favor representing a cyst. 2. Nonobstructive left nephrolithiasis. 3. Tarlov cyst in the sacrum. This should be of no consequence. Bridge Saw Operator: ARNALDO Transcribe Date/Time: Oct 12 2024 1:18P Dictated by : ABIOLA WHITE MD This examination was interpreted and the report reviewed and electronically signed by: ABIOLA WHITE MD on Oct 12 2024 1:28PM EST Malini Schaefer PA-C CT-PAMA Final Resul t * ECG COMPLETE (10/12/2024 11:38 AM EST) Ventricular Rate 78 BPM [facility] Atrial Rate 78 BPM [facility] P-R Interval 136 ms [facility] QRS Duration 92 ms [facility] QT Interval 386 ms [facility] QTC Calculation (Bazett) 440 ms [facility] Calculated P Grace 65 degrees [facility] Calculated R Grace 35 degrees [facility] Calculated T Grace 59 degrees [facility] 10/12/2024 11:3 8 AM EST Impressions [facility] - 10/15/2024 7:02 AM EST Normal sinus rhythm Normal ECG NO STEMI Confirmed by BHUMIKA THOMPSON MD ([id number]), production editor MELVIN FUENTES ([id number]) on 10/15/2024 7:02:28 AM Narrative [facility] - 10/15/2024 7:02 AM EST NAME : GUILLERMO HERNANDEZ PID : [id number] : 1970 Gender : Male Race : ORD : [id number] Procedure Date : Oct 12 2024 11:38:23 Edit Date : Oct 15 2024 07:02:34 Diagnosis: Normal sinus rhythm Normal ECG NO STEMI Confirmed by BHUMIKA THOMPSON MD ([id number]), production editor MELVNI FUENTES ([id number]) on 10/15/2024 7:02:28 AM Test Reason : Chest Pain Location : 302 : ED ED Overread By : BHUMIKA THOMPSON MD Edited By : MELVIN FUENTES Referred By : , Acquired by : [id number], us Malini Schaefer PA-C EKG Final Resul t [facility] [id number] [address], * HIGH SENSITIVITY TROPONIN T (SECOND) (10/12/2024 11:27 AM EST) [facility] ROXANE High Sensitivity <6 <12 ng/L 10/12/2024 11:54 AM EST [facility] Blood BLOOD SPECIMEN / Unknown Venipuncture / Unknown 10/12/2024 11:27 AM EST 10/12/2024 11:29 AM EST Sandra Riri Molina DO LABORATORY Final Result Performing Organization Address City/[facility]/ZIP Co de Phone Number [facility] [address] [address], [place] * HIGH SENSITIVITY TROPONIN T (INITIAL) (10/12/2024 9:10 AM EST) [facility] ROXANE High Sensitivity 8 <12 ng/L 10/12/2024 9:46 AM EST [facility] Blood BLOOD SPECIMEN / Unknown Venipuncture / Unknown 10/12/2024 9:10 AM EST 10/12/2024 9:18 AM EST Sandra Molina DO LABORATORY Final Result Performing Organization Address City/[facility]/ZIP Co de Phone Number [facility] [address] [place] [address], [place] * COVID & INFLUENZA A/B & RSV PCR, EXPEDITED (10/12/2024 9:10 AM EST) [facility] SARS-CoV-2 (Agent of COVID-19) RNA Not detected See comment [employer] COVID19 10/12/2024 9:58 AM EST [facility] Influenza A RNA Not detected Not Detected [employer] COVID19 10/12/2024 9:58 AM EST [facility] Influenza B RNA Not detected Not Detected [employer] COVID19 10/12/2024 9:58 AM EST [facility] Respiratory syncytial virus (RSV) RNA Not detected Not Detected [employer] COVID19 10/12/2024 9:58 AM EST [facility] Swab NASOPHARYNGEAL SWAB / Unknown Non Blood / Unknown 10/12/2024 9:10 AM EST 10/12/2024 9:18 AM EST Narrative [facility] - 10/12/2024 9:58 AM EST Reference Range (the expected result in uninfected individuals): Not detected us Sandra Molina DO MICROBIOLOGY Final Result Performing Organization Address [facility]/ZIP Co de Phone Number [facility] [address] [address], [place] * LIPASE (10/12/2024 9:10 AM EST) Pathologist [facility] Lipase 26 16 - 61 U/L 10/12/2024 9:48 AM [facility] Blood BLOOD SPECIMEN / Unknown Venipuncture / Unknown 10/12/2024 9:10 AM EST 10/12/2024 9:18 AM EST Sandra Molina DO LABORATORY Final Result Performing Organization Address [facility] Co de Phone Number [facility] [address] [address], [place] * (ABNORMAL) COMPREHENSIVE METABOLIC PANEL (10/12/2024 9:10 AM EST) Pathologist [facility] Protein, Total 6.5 6.3 - 8.0 g/dL 10/12/2024 9:48 AM [facility] Albumin 4.5 3.9 - 4.9 g/dL 10/12/2024 9:48 AM [facility] Calcium, Total 9.3 8.5 - 10.2 mg/dL 10/12/2024 9:48 AM [facility] Bilirubin, Total 1.0 0.2 - 1.3 mg/dL 10/12/2024 9:48 AM [facility] Alkaline Phosphatase 140(H) 38 - 113 U/L 10/12/2024 9:48 AM [facility] AST 20 14 - 40 U/L 10/12/2024 9:48 AM [facility] ALT 24 10 - 54 U/L 10/12/2024 9:48 AM [facility] Glucose 104(H) 74 - 99 mg/dL 10/12/2024 9:48 AM [facility] Comment: The [place] Diabetes Association (ADA) provides guidance for cutoff [...] Standards of Medical Care in Diabetes 2016, [place] Diabetes Association. Diabetes Care. 2016.39(Suppl 1). BUN 14 9 - 24 mg/dL 10/12/2024 9:48 AM [facility] Creatinine 0.89 0.73 - 1.22 mg/dL 10/12/2024 9:48 AM [facility] Sodium 139 136 - 144 mmol/L 10/12/2024 9:48 AM [facility] Potassium 4.8 3.7 - 5.1 mmol/L 10/12/2024 9:48 AM [facility] Chloride 105 98 - 107 mmol/L 10/12/2024 9:48 AM [facility] CO2 25 22 - 30 mmol/L 10/12/2024 9:48 AM [facility] Anion Gap 9 8 - 15 mmol/L 10/12/2024 9:48 AM [facility] Estimated Glomerular Filtration Rate 103 >=60 mL/min/1. 73m 10/12/2024 9:48 AM [facility] Comment:Estimated Glomerular Filtration Rate (eGFR) is calculated using the 2020 CKD-EPI creatinine equation. This equation utilizes serum creatinine, sex, and age as parameters. The creatinine assay has traceable calibration to isotope dilution- mass spectrometry. Refer to KDIGO guidelines for clinical interpretation. In patients with unstable renal function, e.g. those with acute kidney injury, the eGFR may not accurately reflect actual GFR. Blood BLOOD SPECIMEN / Unknown Venipuncture / Unknown 10/12/2024 9:10 AM EST 10/12/2024 9:18 AM EST us Sandra Molina DO LABORATORY Final Result [facility] [address] [place] [address], [place] * COMPLETE BLOOD COUNT (10/12/2024 9:10 AM EST) WBC 5.04 3.70 - 11.00 k/uL 10/12/2024 9:23 AM [facility] RBC 5.58 4.20 - 6.00 m/uL 10/12/2024 9:23 AM [facility] Hemoglobin 17.0 13.0 - 17.0 g/dL 10/12/2024 9:23 AM [facility] Hematocrit 50.1 39.0 - 51.0 % 10/12/2024 9:23 AM [facility] MCV 89.8 80.0 - 100.0 fL 10/12/2024 9:23 AM [facility] MCH 30.5 26.0 - 34.0 pg 10/12/2024 9:23 AM [facility] MCHC 33.9 30.5 - 36.0 g/dL 10/12/2024 9:23 AM [facility] RDW-CV 12.1 11.5 - 15.0 % 10/12/2024 9:23 AM [facility] Platelet Count 178 150 - 400 k/uL 10/12/2024 9:23 AM [facility] MPV 10.8 9.0 - 12.7 fL 10/12/2024 9:23 AM [facility] Absolute nRBC <0.01 <0.01 k/uL 10/12/2024 9:23 AM [facility] Blood BLOOD SPECIMEN / Unknown Venipuncture / Unknown 10/12/2024 9:10 AM EST 10/12/2024 9:18 AM EST us Sandra Molina DO LABORATORY Final Result [facility] [address] [place] [address], [place] * XR CHEST 2V FRONTAL/LAT (10/12/2024 7:40 AM EST) Anatomical Region Laterality Modality Chest Radiographic Rajwinder ging 10/12/2024 7:40 AM EST Impressions 10/12/2024 7:45 AM EST IMPRESSION: No acute radiographic abnormality. Bridge Saw Operator: ARNALDO Transcribe Date/Time: Oct 12 2024 7:43A Dictated by : MAXWELL GREER MD This examination was interpreted and the report reviewed and electronically signed by: MAXWELL GREER MD on Oct 12 2024 7:43AM EST Narrative 10/12/2024 7:45 AM EST * * *Final Report* * * DATE OF EXAM: Oct 12 2024 7:40AM [id number] [id number] - XR CHEST 2V FRONTAL/LAT / PROCEDURE REASON: Chest Pain * * * * Physician Interpretation * * * * EXAMINATION: CHEST RADIOGRAPH (2 VIEW FRONTAL & LATERAL) CLINICAL HISTORY: Chest Pain MQ: XC2_6 EXAM DATE/TIME: 10/12/2024 7:40 AM COMPARISON: 01/30/2017 RESULT: Lines, tubes, and devices: None. Lungs and pleura: No consolidation. No lung mass. No pleural effusion. No pneumothorax. Cardiomediastinal silhouette: Normal cardiomediastinal silhouette. Bones and soft tissues: Unremarkable. Procedure Note Provider, [facility] - 10/12/2024 * * *Final Report* * * DATE OF EXAM: Oct 12 2024 7:40AM [id number] - XR CHEST 2V FRONTAL/LAT / PROCEDURE REASON: Chest Pain * * * * Physician Interpretation * * * * EXAMINATION: CHEST RADIOGRAPH (2 VIEW FRONTAL & LATERAL) CLINICAL HISTORY: Chest Pain MQ: XC2_6 EXAM DATE/TIME: 10/12/2024 7:40 AM COMPARISON: 01/30/2017 RESULT: Lines, tubes, and devices: None. Lungs and pleura: No consolidation. No lung mass. No pleural effusion. No pneumothorax. Cardiomediastinal silhouette: Normal cardiomediastinal silhouette. Bones and soft tissues: Unremarkable. IMPRESSION IMPRESSION: No acute radiographic abnormality. Bridge Saw Operator: ARNALDO Transcribe Date/Time: Oct 12 2024 7:43A Dictated by : MAXWELL GREER MD This examination was interpreted and the report reviewed and electronically signed by: MAXWELL GREER MD on Oct 12 2024 7:43AM EST us Sandra Molina DO RAD-PAMA Final Result * (ABNORMAL) LIPID PANEL (LIPB) (FOR REMOTE [facility] USE) (05/29/2018 5:12 PM EDT) Cholesterol, Total 123 <200 mg/dL 05/31/2018 7:36 AM [facility] Comment: <200 mg/dL, Desirable 200-239 mg/dL, Borderline high >239 mg/dL, High Triglyceride 64 <150 mg/dL 05/31/2018 7:36 AM [facility] Comment: <150 mg/dL, Normal 150-199 mg/dL, Borderline high 200-499 mg/dL, High >499 mg/dL, Very high HDL Cholesterol 39(L) >39 mg/dL 7:36 AM T [facility] Comment: 40-59 mg/dL, Acceptable >59 mg/dL, High: Negative risk factor for coronary heart disease <40 mg/dL, Low: Positive risk factor for coronary heart disease LDL Cholesterol, Calculated 71 <100 mg/dL 05/31/2018 7:36 AM [facility] Comment: <100 mg/dL, Optimal 100-129 mg/dL, Near optimal/above optimal 130-159 mg/dL, Borderline high 160-189 mg/dL, High >189 mg/dL, Very high Secondary prevention optimal LDL Cholesterol levels are recommended to be < 70 mg/dL Non HDL Cholesterol 84 <130 mg/dL 05/31/2018 7:36 AM T [facility] Comment: <130 mg/dL, Optimal 130-159 mg/dL, Near optimal/above optimal 160-189 mg/dL, Borderline high 190-219 mg/dL, High >219 mg/dL, Very high Secondary prevention optimal non HDL Cholesterol levels are recommended to be < 100 mg/dL Fasting Time Unknown hrs 05/31/2018 7:36 AM [facility] VLDL Cholesterol 13 <30 mg/dL 05/31/20 18 7:36 AM [facility] TC:HDL Ratio 3.15 <5.10 05/31/2018 7:36 AM EDT [facility] LDL:HDL Ratio 1.82 <2.54 05/31/2018 7:36 AM EDT [facility] Comment: Reference: 1. National Cholesterol Education Program ATP III Guideline At-A-Glance Quick Desk Reference: National Heart, Lung, and Blood [place]vin. National Institutes of Health. 2001: NIH Publication No. 01-3305. 2. An International Atherosclerosis Society position paper: global recommendations for the management of dyslipidemia: executive summary, Atherosclerosis. 2014: 232(2):410-413. Blood specimen (specimen) BLOOD SPECIMEN / Unknown 05/29/2018 5:12 PM EDT 05/29/2018 5:14 PM EDT Catherine Nelson PA-C LABORATORY Final Result Performing Organization Address City/State/[facility] Co de Phone Number [facility] [address] [place] [address] * COLONOSCOPY (10/26/2016 10:35 AM EDT) [facility] Gastrointestinal Endoscopy Patient Name: Guillermo Hernandez Procedure Date: 10/26/2016 10:35 AM Date of : 1970 Admit Type: Outpatient Age: 46 Room: [facility] 1 Gender: Male Note Status: Finalized Attending MD: Sunny Cobb MD Sedation Initiated: 10:46 AM Procedure: Colonoscopy Indications: Abdominal pain in the right lower quadrant Providers: Sunny Cobb MD, Douglas Wilkins RN, Kevan Newell LPN Patient Profile: Last Colonoscopy: none. The patient's first colonoscopy is today. Referring Physician: Medicines: Fentanyl 100 micrograms IV, Midazolam 6 mg IV Complications: No immediate complications. Requesting Provider: Procedure: [...] Prior Anticoagulants: The patient has taken no previous anticoagulant or antiplatelet agents. ASA Grade Assessment: [...] were answered and informed consent was obtained. After I obtained informed consent, the scope was passed under direct vision. Throughout the procedure, the patient's blood pressure, pulse, and oxygen saturations were monitored continuously. The Colonoscope was introduced through the anus and advanced to 20 cm into the ileum. The colonoscopy was technically difficult and complex due to significant looping. Successful completion of the procedure was aided by increasing the dose of sedation medication, using manual pressure, withdrawing and reinserting the scope, straightening and shortening the scope to obtain bowel loop reduction and using scope torsion. The patient tolerated the procedure fairly well. The quality of the bowel preparation was adequate. The terminal ileum, ileocecal valve, appendiceal orifice, and rectum were photographed. Scope Withdrawal Time: 0 hours 9 minutes 36 seconds Total Procedure Duration: 0 hours 23 minutes 50 seconds Findings: The perianal and digital rectal examinations were normal. The terminal ileum appeared normal. A 5 mm polyp was found in the transverse colon. The polyp was flat. The polyp was removed with a cold biopsy forceps. Resection and retrieval were complete. Estimated blood loss was minimal. The exam was otherwise without abnormality on direct and retroflexion views. Impression: - The examined portion of the ileum was normal. - One 5 mm polyp in the transverse colon. Resected and retrieved. - The examination was otherwise normal on direct and retroflexion views. Recommendation: - Discharge patient to home (ambulatory). - Resume previous diet. - Await pathology results. - Repeat colonoscopy in 10 years for screening purposes. - Patient has a contact number available for emergencies. The signs and symptoms of potential delayed complications were discussed with the patient. Return to normal activities tomorrow. Written discharge instructions were provided to the patient. - Continue present medications. - Resume anticoagulant at prior dose. Attending Participation: I was present and participated during the entire procedure, including non-knight portions, and during the administration and monitoring of Moderate Sedation. Scope In: 10:50:30 AM Scope Out: 11:14:20 AM MD Sunny Mcghee MD 10/26/2016 11:18:21 AM This report has been signed electronically by Sunny Cobb MD Number of Addenda: 0 Note Initiated On: 10/26/2016 10:35 AM Estimated Blood Loss: Estimated blood loss was minimal. [facility] 10/26/2016 10:3 5 AM EDT Sunny Cobb MD [facility] Final Result [facility] from Last 3 Months or Most Recently Relevant to Health Maintenance Care Teams Boiler Maker Relationship Specialty Start Date End Date Rie Ingram DO [address] [place] [address] PCP - General Internal Medicine 08/14/18 Lyubov Figueroa PA-C [address] [place] [address] Outside Installer Apprentice Internal Medicine 07/22/24
--- OUTSIDE RECORDS SUMMARY | 2025-01-01 21:12 | XMS_ITS | Encounter Summary ---
Author Organization [facility] Address [address] [place] [address] Care Team Providers Care Lining Machine Tender Name Role Phone IngramRei Primary Care Provider Lyubov Figueroa PA-C Unavailable [phone] Source Comments In the event this information is protected by the Federal Confidentiality of Alcohol and Drug AbusePatient Records regulations: The Federal rules restrict any use of the information to criminally investigate or prosecute any alcohol or drug abuse patient.[facility] Encounter Details Date Type Department Care Team (Latest Contact Info) Description 12/28/2024 Travel Social History Tobacco Use Types Packs/Day Years [...] is lower risk 7 10/13/2024 Data from: https://www.neighborhoodatlas.medicine.[facility].edu/. Last address used for calculation [address] [facility] 10/13/2024 Sex and Gender Information Value Date [...] of Assessment Author No 01/10/2015 1:54 PM Margaret Conner MA documented as of this encounter Mental Status * Because of a physical, mental, or emotional condition, do you have serious difficulty concentrating, remembering, or making decisions? Answer Entry Date Author No 01/10/2015 1:54 PM Margaret Conner MA documented in this encounter Plan of Treatment Scheduled Procedures Name Priority Associated Diagnoses Date/Ti il CYSTOURETHROSCOPY W/ URETEROSCOPY AND/OR PYELOSCOPY W/ LITHOTRIPSY INCLUDE INSERTION OF INDWELLING URETERAL STENT Calculus of kidney 01/01/2025 10:56 AM EDT documented as of this encounter Visit Diagnoses Not on filedocumented in this encounter Care Teams Lining Machine Tender Relationship Specialty Start Date End Date Rei Ingram DO [address] [place] [id number] PCP - General Internal Medicine 08/14/18 Lyubov Figueroa PA-C [address] [place] [address] Pharmacy Clinical Specialist Internal Medicine 07/22/24 documented as of this encounter
--- OUTSIDE RECORDS SUMMARY | 2025-01-01 21:12 | XMS_ITS | Encounter Summary ---
Author Organization [facility] Address [address] [place] [address] Care Team Providers Care Robotics Software Engineer Name Role Phone IngramRei Primary Care Provider Lyubov Figueroa PA-C Unavailable [phone] Source Comments In the event this information is protected by the Federal Confidentiality of Alcohol and Drug AbusePatient Records regulations: The Federal rules restrict any use of the information to criminally investigate or prosecute any alcohol or drug abuse patient.[facility] Encounter Details Date Type Department Care Team (Latest Contact Info) Description 01/01/2025 Travel Social History Tobacco Use Types Packs/Day [...] is lower risk 7 10/13/2024 Data from: https://www.neighborhoodatlas.medicine.[facility].edu/. Last address used for calculation [address] [facility] 10/13/2024 Sex and Gender Information Value Date [...] Entry Date Author No 01/10/2015 1:54 PM Margaert Conner MA documented in this encounter Plan of Treatment Scheduled Procedures Name Priority Associated Diagnoses Date/Ti ms CYSTOURETHROSCOPY W/ URETEROSCOPY AND/OR PYELOSCOPY W/ LITHOTRIPSY INCLUDE INSERTION OF INDWELLING URETERAL STENT Calculus of kidney 01/01/2025 10:56 AM EDT documented as of this encounter Visit Diagnoses Not on filedocumented in this encounter Care Teams Robotics Software Engineer Relationship Specialty Start Date End Date Rei Ingram DO [address] [place] [phone] PCP - General Internal Medicine 08/14/18 Lyubov Figueroa PA-C [address] [place] [address] Supervisor Irrigation Internal Medicine 07/22/24 documented as of this encounter
--- OUTSIDE RECORDS SUMMARY | 2025-01-01 21:12 | XMS_ITS | Encounter Summary ---
Author Organization [facility] Address [address] [place] [address] Care Team Providers Care Seed Cleaning Machine Operator Name Role Phone Monika Maloney MD Primary Care Provider [phone] Rei Ingram DO Primary Care Provider Pcp, No MANUFACTURING ACCOUNTANT Primary Care Provider Unavailabl e Rei Ingram DO Primary Care Provider Amy Troy MANUFACTURING ACCOUNTANT.MEDICAL TECHNOLOGIST PRN Unavailable [phone] Lyubov Figueroa PA-C Unavailable [phone] Lori Bain PA-C Unavailable [phone] Source Comments In the event this information is protected by the Federal Confidentiality of Alcohol and Drug AbusePatient Records regulations: The Federal rules restrict any use of the information to criminally investigate or prosecute any alcohol or drug abuse patient.[facility] Reason for Visit * Reason Comments PSG Check In Encounter Details Date Type Department Care Team (Late st Contact Info) Description 06/04/2011 Abstract Neurology [address] [place] [address] Nery Dia PSG Check In Social History Tobacco Use Types Packs/Day Years Used Date Smoking Tobacco: Never Smokeless Tobacco: Current Alcohol Use Standard Drinks/Week Comments Yes 0 (1 standard drink = 0.6 oz pur e alcohol) social Sex and Gender Information Value Date Recorded Sex Assigned at Not on file Legal Sex Male 9:58 AM EST Gender Identity Not on file Sexual Orientation Not on file Occupation Industry Job Start Date Job End Date [employer] Not on file Not on file Not on file documented as of this encounter Plan of Treatment Scheduled Procedures Name Priority Associated Diagnoses Date/Ti me CYSTOURETHROSCOPY W/ URETEROSCOPY AND/OR PYELOSCOPY W/ LITHOTRIPSY INCLUDE INSERTION OF INDWELLING URETERAL STENT Calculus of kidney 01/01/2025 10:56 AM EDT documented as of this encounter Visit Diagnoses Not on filedocumented in this encounter Additional Health Concerns Infection Onset Date Last Indicated Resolved Time COVID-19 Rule-Out 10/12/2024 10/12/2024 10/12/2024 9:58 AM EST documented as of this encounter Care Teams Seed Cleaning Machine Operator Relationship Specialty Start Date End Date Monika Maloney MD [address] [place], [place] [phone] PCP - General Internal Medicine 04/12/11 03/21/18 Rei Ingram DO [address] [place] [phone] PCP - General Internal Medicine 03/22/18 06/25/18 Monique Hull MANUFACTURING ACCOUNTANT PCP - General 06/26/18 08/13/18 Rei Ingram DO [address] [place] [phone] PCP - General Internal Medicine 08/14/18 Amy Troy MANUFACTURING ACCOUNTANT.MEDICAL TECHNOLOGIST PRN [address] [place], [place] [id number] [facility] 07/22/24 08/16/24 Lyubov Figueroa PA-C [address] [place], [place] [phone] Button Tufter Internal Medicine 07/22/24 Lori Bain PA-C [address] [place] [id number] [facility] Internal Medicine 07/22/24 08/16/24 documented as of this encounter
--- OUTSIDE RECORDS SUMMARY | 2025-01-01 21:12 | XMS_ITS | Encounter Summary ---
Author Organization [facility] Address [address] [place] [address] Care Team Providers Care Farm Machinery Engine Mechanic Name Role Phone Juan JoseRei Giovanni RIVERA Primary Care Provider Lyubov Figueroa PA-C Unavailable [phone] Source Comments In the event this information is protected by the Federal Confidentiality of Alcohol and Drug AbusePatient Records regulations: The Federal rules restrict any use of the information to criminally investigate or prosecute any alcohol or drug abuse patient.[facility] Encounter Details Date Type Department Care Team (Late st Contact Info) Description 12/12/2024 Results Follow-Up Gastroenterology [facility] [address] [place], [place] [phone] Aide Herman, SILVESTRE.OFFICE SYSTEM ANALYST [address] [place] [address] Social History Tobacco Use Types Packs/Day Years [...] is lower risk 7 10/13/2024 Data from: https://www.neighborhoodatlas.[facility]/. Last address used for calculation [address] [...] Margaret Calabrese MA documented in this encounter Miscellaneous Notes * Telephone Encounter - Tere Wise RN - 12/13/2024 10:27 AM EDT ----- Message from Aide Herman APRN.CNP sent at 12/12/2024 4:08 PM EDT ----- Emmett, Normal gastric emptying scan. Aide Herman APRN.CNP Call to patient, Let him know GES is normal. Advised patient to schedule follow up appt with Kanchan if he is still experiencing symptoms. Tere Wise, RN documented in this encounter Plan of Treatment Scheduled Procedures Name Priority Associated Diagnoses Date/Ti ks CYSTOURETHROSCOPY W/ URETEROSCOPY AND/OR PYELOSCOPY W/ LITHOTRIPSY INCLUDE INSERTION OF INDWELLING URETERAL STENT Calculus of kidney 01/01/2025 10:56 AM EDT documented as of this encounter Visit Diagnoses Not on filedocumented in this encounter Care Teams Farm Machinery Engine Mechanic Relationship Specialty Start Date End Date Rei Ingram DO [address] [place] [address] PCP - General Internal Medicine 08/14/18 Lyubov Figueroa PA-C [address] [place] [address] Medical Operations Supervisor Internal Medicine 07/22/24 documented as of this encounter
--- OUTSIDE RECORDS SUMMARY | 2025-01-01 21:12 | XMS_ITS | Encounter Summary ---
Author Organization [facility] Address [address] [place] [address] Care Team Providers Care Paint Prep Technician Name Role Phone Juan JoseRei Giovanni RIVERA Primary Care Provider Lyubov Figueroa PA-C Unavailable [phone] Source Comments In the event this information is protected by the Federal Confidentiality of Alcohol and Drug AbusePatient Records regulations: The Federal rules restrict any use of the information to criminally investigate or prosecute any alcohol or drug abuse patient.[facility] Encounter Details Date Type Department Care Team (Late st Contact Info) Description 11/27/2024 Results Follow-Up Gastroenterology [address] [place] [address] Kanchan Samayoa PA-C [address] [place] [address] Social History Tobacco Use Types Packs/Day Years [...] is lower risk 7 10/13/2024 Data from: https://www.neighborhoodatlas.[facility]/. Last address used for calculation [address] [...] of Assessment Author No 01/10/2015 1:54 PM JUANT Margaret Calabrese MA * Do you have serious difficulty walking or climbing stairs? Answer Date of Assessment Author No 01/10/2015 1:54 PM JUANT Margaret Calabrese MA * Do you have [...] Entry Date Author No 01/10/2015 1:54 PM EDMargaret Cordon MA documented in this encounter Miscellaneous Notes * Telephone Encounter - Tere Wise RN - 11/28/2024 10:42 AM EDT ----- Message from Kanchan Samayoa PA-C sent at 11/27/2024 4:27 PM EDT ----- Please let patient know that there is significant GERD on his SBFT but is otherwise normal. I recommend pantoprazole 40mg BID And pepcid at bedtime in addition to carafate. He should still complete other studies as recommended during his appointment. Thank you WALTER Lira 12/05/24 GES 12/12/24 Call to patient, Reviewed that SBFT is showing significant GERD but is otherwise normal. Kanchan recommends pantoprazole 40mg BID And pepcid at bedtime in addition to carafate. Advised pantoprazole replaces omeprazole. Tere Wise RN documented in this encounter Plan of Treatment Scheduled Procedures Name Priority Associated Diagnoses Date/Ti oh CYSTOURETHROSCOPY W/ URETEROSCOPY AND/OR PYELOSCOPY W/ LITHOTRIPSY INCLUDE INSERTION OF INDWELLING URETERAL STENT Calculus of kidney 01/01/2025 10:56 AM EDT documented as of this encounter Visit Diagnoses Not on filedocumented in this encounter Care Teams Paint Prep Technician Relationship Specialty Start Date End Date Rei Ingram DO [address] [place] [address] PCP - General Internal Medicine 08/14/18 Lyubov Figueroa PA-C [address] [place] [address] Rehab Specialist Internal Medicine 07/22/24 documented as of this encounter
--- OUTSIDE RECORDS SUMMARY | 2025-01-01 21:12 | XMS_ITS | Encounter Summary ---
Author Organization [facility] Address [address] [place] [address] Care Team Providers Care Program Instructor Name Role Phone Juan Jose Rei Giovanni RIVERA Primary Care Provider Lyubov Figueroa PA-C Unavailable [phone] Source Comments In the event this information is protected by the Federal Confidentiality of Alcohol and Drug AbusePatient Records regulations: The Federal rules restrict any use of the information to criminally investigate or prosecute any alcohol or drug abuse patient.[facility] Encounter Details Date Type Department Care Team (Late st Contact Info) Description 12/06/2024 Results Follow-Up [facility] [address] [place] [address] Kanchan Samayoa PA-C [address] [place] [id number] Social History Tobacco Use Types Packs/Day Years [...] is lower risk 7 10/13/2024 Data from: https://www.neighborhoodatlas.[facility]/. Last address used for calculation [address] [...] Telephone Encounter - Tere Wise RN - 12/06/2024 10:18 AM EDT ----- Message from Kanchan Samayoa PA-C sent at 12/06/2024 8:32 AM EDT ----- Please let him know his HIDA scan is normal. Thank you Call to patient, Let him know HIDA scan is normal. Tere Wise RN documented in this encounter Plan of Treatment Scheduled Procedures Name Priority Associated Diagnoses Date/Ti co CYSTOURETHROSCOPY W/ URETEROSCOPY AND/OR PYELOSCOPY W/ LITHOTRIPSY INCLUDE INSERTION OF INDWELLING URETERAL STENT Calculus of kidney 01/01/2025 10:56 AM EDT documented as of this encounter Visit Diagnoses Not on filedocumented in this encounter Care Teams Program Instructor Relationship Specialty Start Date End Date Rei Ingram DO [address] [place] [address] PCP - General Internal Medicine 08/14/18 Lyubov Figueroa PA-C [address] [place] [address] Asphalt Roller Operator Internal Medicine 07/22/24 documented as of this encounter
--- OUTSIDE RECORDS SUMMARY | 2025-01-01 21:12 | XMS_ITS | Encounter Summary ---
Author Organization [facility] Address [address] [place] [address] Care Team Providers Care Mattress Renovator Name Role Phone Juan JoseRei Primary Care Provider Lyubov Figueroa PA-C Unavailable [phone] Source Comments In the event this information is protected by the Federal Confidentiality of Alcohol and Drug AbusePatient Records regulations: The Federal rules restrict any use of the information to criminally investigate or prosecute any alcohol or drug abuse patient.[facility] Reason for Visit * Reason Comments Stent Extraction Encounter Details Date Type Department Care Team (Late st Contact Info) Description 01/01/2025 Telephone Urology [address] [place], [place] [phone] [place] [address] [place] [address] Stent Extraction Social History Tobacco Use Types Packs/Day Years [...] is lower risk 7 10/13/2024 Data from: https://www.neighborhoodatlas.[facility]/. Last address used for calculation [address] [...] encounter Miscellaneous Notes * Telephone Encounter - Nika Merritt MD - 01/01/2025 7:55 PM EDT Please schedule the patient for cystoscopy, stent removal in 7-10 days. Thank you Nika Merritt MD documented in this encounter Plan of Treatment Scheduled Procedures Name Priority Associated Diagnoses Date/Ti me CYSTOURETHROSCOPY W/ URETEROSCOPY AND/OR PYELOSCOPY W/ LITHOTRIPSY INCLUDE INSERTION OF INDWELLING URETERAL STENT Calculus of kidney 01/01/2025 10:56 AM EDT documented as of this encounter Visit Diagnoses Not on filedocumented in this encounter Care Teams Mattress Renovator Relationship Specialty Start Date End Date Rei Ingram DO [address] [place] [address] PCP - General Internal Medicine 08/14/18 Lyubov Figueroa PA-C [address] [facility] [place] [place] [address] Sole Painter Internal Medicine 07/22/24 documented as of this encounter
[2025-01-01 21:13] VITALS: BP 132/67; PULSE 76; O2SAT 99; BMI 25.6
--- NOTE | 2025-01-01 21:18 | ED_ITS ---
HPI - Male Genitourinary General Chief complaint: Urogenital-Male Stated complaint: OTHER Time Seen by Provider: 01/01/25 21:09 History of Present Illness HPI Narrative: This 54-year-old male was brought to emergency department by EMS for evaluation of flank pain. The patient had a ureteral stent and lithotripsy performed earlier today at [facility]. He was sent home with prescriptions for Tylenol, Levsin, ketorolac, Pyridium and Flomax. He states that shortly after getting home he started having pain. He initially called EMS to take him back to the [facility] but they would not take him to [place] so he declined transport. The pain persisted throughout the day and he was brought to this emergency department for evaluation. He states he has severe pain every time he tries to urinate. He does have bloody urine but is urinating. Related Data Home Medications ?Medication ?Instructions ?Recorded ?Confirmed No Known Home Medications 10/11/2409/16 Allergies Allergy/AdvReac Type Severity Reaction Status Date / Time amoxicillin (From Augmentin) AdvReac Mild Nausea Verified 01/01/25 21:20 clavulanic acid (From AdvReac Mild Nausea Verified 01/01/25 21:20 Augmentin) Review of Systems ROS Status of ROS 10 or more systems reviewed and unremark able except as noted in history and below [facility] Medical History (Updated 01/01/25 @ 22:07 by Maci Pantoja MD) No active medical problems Social History Feeling down, depressed, or hopeless: not at all Exam Narrative Exam Narrative: Vital signs and Nursing Notes reviewed: General: Uncomfortable appearing male lying on his right side and moaning while trying to urinate, no active vomiting, no respiratory distress HEENT: Normocephalic atraumatic, mucous membranes are moist and pink, eyes are clear, normal conjunctiva, vision is grossly intact Chest: Lungs are clear to auscultation with good air entry, there is no wheezing rhonchi or rales appreciated no accessory muscle use, patient is speaking in complete sentences-no chest wall tenderness to palpation CVS: Regular rate and rhythm S1-S2, no murmurs rubs or gallops, pulses are brisk and equal bilaterally ABD: Soft, nondistended, generalized tenderness with no rebound guarding or rigidity, patient is urinating bloody urine Extremities: Moving all extremities, no lower extremity tenderness or swelling noted, negative Homans' sign, pulses are brisk and equal bilaterally Skin: Normal in appearance without rash,pallor, petechiae or purpura Neuro: No focal deficits Constitutional Vital Signs, click to edit/add: Last Vital Signs Pulse 76 01/01/25 21:13 Resp 24 H 01/01/25 21:13 BP 132/67 01/01/25 21:13 Pulse Ox 99 01/01/25 21:13 O2 Del Method Room Air 01/01/25 21:13 Course Vital Signs Vital signs: Vital Signs Pulse Rate 76 01/01/25 21:13 Respiratory Rate 24 H 01/01/25 21:13 Blood Pressure 132/67 01/01/25 21:13 Pulse Oximetry 99 01/01/25 21:13 Oxygen Delivery Method Room Air 01/01/25 21:13 Pulse Rate 76 01/01/25 21:13 Respiratory Rate 24 H 01/01/25 21:13 Blood Pressure 132/67 01/01/25 21:13 Pulse Oximetry 99 01/01/25 21:13 Oxygen Delivery Method Room Air 01/01/25 21:13 MDM - Male Genitourinary MDM Narrative Medical decision making narrative: This 54-year-old male who had lithotripsy for a left-sided kidney stone and a stent placement at [facility] earlier today presents for evaluation of flank pain specifically when he is trying to urinate. He was discharged home with a prescription for ketorolac, Flomax, Tylenol and Levsin. He states that his pain started becoming severe earlier in the day after getting home from his procedure. He initially called EMS to take him to [facility] but was told they would not take him to [facility] so he released them at that time. He states that his pain has become severe throughout the day so much so that he was crawling around on the floor on his back. He was urinating small amounts of bloody urine in the emergency department. His vital signs were stable. He was tender in the left lower quadrant of his abdomen. An IV had been established by EMS and he had been given 10 mg of morphine en route to the hospital. He was then medicated after I saw him with a dose of Dilaudid and Toradol. He had relief from his pain after this and demanded something very strong to take home. He was given an additional dose of dilaudid prior to being discharged. He was medicated with a dose of Percocet in the emergency department and will be discharged home with 2 Percocet and I will provide him with a prescription for Percocet to use over the course of the next several days. He was encouraged to call his urologist in [facility] if his symptoms persisted overnight or were refractory to the Percocet I am discharging him home with. Discharge Plan Discharge Chief Complaint: Urogenital-Male Clinical Impression: Postoperative pain Patient Disposition: Home, Self-Care Time of Disposition Decision: 22:09 Condition: Good Prescriptions / Home Meds: No Action No Known Home Medications Print Language: Bulgarian Instructions: Narcotic Safety (ED), Pain Management After Surgery (DC) Referrals: Physician,Non-Staff, MD [Primary Care Provider] - 1 week
[2025-01-01] MEDS: 0.9 % SODIUM CHLORIDE 1,000 ML 1000 ML IV (21:26)
[2025-01-01] MEDS: HYDROMORPHONE HCL 1 MG/ML CARTRIDGE IV ×2 (21:27→22:51)
[2025-01-01] MEDS: ONDANSETRON PF 4 MG/2 ML VIAL IV (21:27)
[2025-01-01] MEDS: KETOROLAC TROMETHAMINE 30 MG/ML VIAL IVP (21:27)
--- NOTE | 2025-01-01 21:41 | PC.NURSE ---
pt had lithotripsy and stent placement today at [facility]. He was okay until he got home and tried to urinate, then he was in a lot of paain. he was not able to make it back to the [facility], so he came back here. He states he was not even able to stand due to the amount of pain he was in at home.
[2025-01-01] MEDS: OXYCODONE HCL/ACETAMINOPHEN 5MG/325MG 1 TAB PO ×3 (22:20→22:21)
== END 2025-01-01 23:23 | disposition home or self-care (01) ==
PROVIDERS: Emergency Provider Emergency Medicine
DX: G89.18 Other acute postprocedural pain (principal); Z98.890 Other specified postprocedural states; Z96.0 Presence of urogenital implants
CPT/HCPCS: 96374; 96375; 96376; 99284; J1171; J1885; J2405